=== PATIENT | female | born 1965 | race Caucasian/White ===

== ENCOUNTER 2017-03-17 09:09 | Outpatient (CLI) | payer BC ==
--- NOTE | 2017-03-17 10:06 | PRG ---
DATE OF SERVICE: 03/17/2017 SUBJECTIVE: This is a 51-year-old female who returns today for followup right great toe ulceration. He has been doing Promogran, 4 x 4 and tape dressing changes. Denies any nausea, vomiting, fevers , chills, or any other concerns at this time. PHYSICAL EXAMINATION: Ulceration, right great toe smaller in size measuring 0.5 cm x 0.4 cm x 0.1 c m of depth, 100% granular base post-debridement. Does not probe to bone or deeper soft tissues. No periwound erythema, edema, or warmth or other signs of infection. ASSESSMENT: 1. Non-pressure chronic ulceration of the right great toe. 2. Diabetes with peripheral neuropathy. PLAN: Full thickness debridement of the wound down to the subcutaneous tissue layer removing nonvia ble tissues including biofilm from the wound base. Patient tolerated the procedure well. The patie nt will continue with Promogran dressing changes daily and follow up with me in 1 week.
[2017-03-17] MEDS ORDERED: Sodium Chloride 0.9% 15 ML NEB ONE (11:11)
== END 2017-03-17 09:10 | disposition home or self-care (01) ==
LOC: WCC 09:09
PROVIDERS: ATTEND Podiatrist Foot & Ankle Surgery
DX: E11.621 Type 2 diabetes mellitus with foot ulcer (principal); L97.519 Non-pressure chronic ulcer of other part of right foot with unspecified severity
CPT/HCPCS: 11042; A4218

== ENCOUNTER 2017-03-31 09:22 | Outpatient (CLI) | payer BC ==
--- NOTE | 2017-03-31 09:58 | PRG ---
DATE OF SERVICE: 03/31/2017 SUBJECTIVE: This is a 51-year-old female who returns today for right great toe ulceration, doing we ll with Promogran dressing changes. She denies nausea, vomiting, fevers or chills. PHYSICAL EXAMINATION: Ulceration right great toe dorsomedial, IVJ, measures 0.3 cm x 0.2 cm x 0.2 c m, which is a decrease in size, there is 100% granular wound base. No periwound erythema, edema or warmth. No other signs of bacterial infection. ASSESSMENT: 1. Non-pressure chronic ulceration of the right great toe. 2. Diabetes with peripheral neuropathy. PLAN: Full thickness debridement down to the subcutaneous tissue layer utilizing dermal curet, chanel ving all biofilm and nonviable tissue within the wound base, approximately 2 mL of blood loss. The patient tolerated the procedure well. We will continue dressing with daily Promogran, gauze and tap e dressing changes. She will follow up with me in 2 weeks.
[2017-03-31] MEDS ORDERED: Sodium Chloride 0.9% 15 ML NEB ONE (17:30)
== END 2017-03-31 09:23 | disposition home or self-care (01) ==
LOC: WCC 09:22
PROVIDERS: ATTEND Podiatrist Foot & Ankle Surgery
DX: E11.621 Type 2 diabetes mellitus with foot ulcer (principal); L97.519 Non-pressure chronic ulcer of other part of right foot with unspecified severity; E11.51 Type 2 diabetes mellitus with diabetic peripheral angiopathy without gangrene
CPT/HCPCS: 11042; A4218

== ENCOUNTER 2017-04-14 09:21 | Outpatient (CLI) | payer BC ==
--- NOTE | 2017-04-14 11:09 | PRG ---
DATE OF SERVICE: 04/14/2017 SUBJECTIVE: This is a 51-year-old female who returns today for followup of right great toe dorsal u lceration. She has been doing well with daily dressing changes. She states she has had no issues. Denies nausea, vomiting, fevers or chills. They did bring some [facility] paperwork for me to fill out to day. PHYSICAL EXAMINATION: Ulceration to the dorsal aspect of the right great toe, very small in size. Post-debridement measurement measures 0.3 cm x 0.1 cm x 0.1 cm with 100% granular wound base, does n ot probe to deeper tendon or bone and does not have any periwound erythema or edema or warmth. ASSESSMENT: Non-pressure chronic ulceration to the right great toe. PLAN: 1. Full thickness debridement of the subcutaneous tissue layer of the ulceration of the right great toe, removing all nonviable tissue, biofilm and down to a bleeding granular wound base utilizing de rmal curet. 2. [facility] paperwork was filled out to the patient's satisfaction. 3. The patient will follow up with me in 1 week. We will continue with the daily Promogran dressin g changes.
== END 2017-04-14 09:22 | disposition home or self-care (01) ==
LOC: WCC 09:21
PROVIDERS: ATTEND Podiatrist Foot & Ankle Surgery
DX: L97.519 Non-pressure chronic ulcer of other part of right foot with unspecified severity (principal)
CPT/HCPCS: 11042

== ENCOUNTER 2017-05-05 09:15 | Outpatient (CLI) | payer BC ==
--- NOTE | 2017-05-05 10:24 | PRG ---
DATE OF SERVICE: 05/05/2017 SUBJECTIVE: Ms. Carlson returns today for followup right great toe ulceration. Has been doing Prom ogran, MediPort plus pad dressings daily. Has seen minimal change in the wound. Denies any nausea, vomiting, fevers, or chills. PHYSICAL EXAMINATION: Ulceration to the right great toe, measuring 0.3 cm x 0.2 cm x 0.2 cm, 100% gr anular wound base. No periwound erythema, edema, or warmth. No drainage. Wound does not probe to b one. ASSESSMENT: Non-pressure chronic ulceration of the right great toe, stalled in progression. PLAN: 1. Full thickness debridement of subcutaneous tissue layers down to a bleeding granular wound base, removing all biofilm and nonviable tissue from the wound base. 2. I am going to switch her dressings to an Aquacel Ag pad and secondary gauze dressing for the next 2 weeks to see if we can get any change in the wound size as it is stalled with the Promogran. 3. She will follow up with us in 2 weeks.
== END 2017-05-05 09:16 | disposition home or self-care (01) ==
LOC: WCC 09:15
PROVIDERS: ATTEND Podiatrist Foot & Ankle Surgery
DX: L97.519 Non-pressure chronic ulcer of other part of right foot with unspecified severity (principal)

== ENCOUNTER 2017-05-19 09:46 | Outpatient (CLI) | payer BC ==
[2017-05-19] MEDS ORDERED: Sodium Chloride 0.9% 15 ML NEB ONE (17:28)
--- NOTE | 2017-05-20 10:09 | PRG ---
DATE OF SERVICE: 05/20/2017 SUBJECTIVE: A 51-year-old female who returns today for right great toe dorsal ulceration, has been d oing well since last week. We switched to Aquacel AG and MediPort plus pad dressings. No complaints at this time. Denies nausea, vomiting, fevers or chills. 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 There is 50% granulation tissue, 50% epithelium within the wound. Does not pr obe to bone or tendon. No drainage, no periwound erythema, edema or warmth. No malodor. ASSESSMENT: 1. Non-pressure chronic ulceration to the right great toe. 2. Diabetes with peripheral neuropathy. PLAN: 1. Full thickness debridement of the subcutaneous tissue layer down to a bleeding granular wound bas e, removing biofilm and nonviable tissue from the wound. The patient tolerated the procedure well. 2. Continue with Aquacel AG, dressing changes on a daily basis and she will follow up with me in 1 w [facility].
== END 2017-05-19 09:47 | disposition home or self-care (01) ==
LOC: WCC 09:46
PROVIDERS: ATTEND Podiatrist Foot & Ankle Surgery
DX: E11.621 Type 2 diabetes mellitus with foot ulcer (principal); L97.519 Non-pressure chronic ulcer of other part of right foot with unspecified severity; E11.42 Type 2 diabetes mellitus with diabetic polyneuropathy
CPT/HCPCS: 11042; A4218

== ENCOUNTER 2017-06-02 08:51 | Outpatient (CLI) | payer BC ==
--- NOTE | 2017-06-02 09:40 | PRG ---
DATE OF SERVICE: 06/02/2017 SUBJECTIVE: This is a 51-year-old female who returns today for followup right great toe ulceration. She has been doing well since last visit. She continues with Aquacel AG dressing changes. She lashawn es nausea, vomiting, fever or chills. PHYSICAL EXAMINATION: Ulceration to the right great toe dorsal IPJ has healed. There is no open wou nd at this time. No erythema, edema, or warmth of the toe. She does have a hallux malleus deformity secondary to a bone resection because of infection. ASSESSMENT: 1. Non-pressure chronic ulceration to the right great toe, resolved. 2. Diabetes with peripheral neuropathy. 3. Hallux malleus. PLAN: Discussed with patient skin care including moisturizing daily, no dressing is necessary at thi s time. She needs to be diligent on looking at the toe and making sure that her shoes are not rubbin g any areas. We briefly discussed amputation should this continue to be a problem because of the sev ere deformity of the toe. She does not need follow up with me at this time unless she has any furthe r concerns.
== END 2017-06-02 08:52 | disposition home or self-care (01) ==
LOC: WCC 08:51
PROVIDERS: ATTEND Podiatrist Foot & Ankle Surgery
DX: M20.41 Other hammer toe(s) (acquired), right foot (principal); E11.42 Type 2 diabetes mellitus with diabetic polyneuropathy

== ENCOUNTER 2017-10-22 16:05 | Emergency (ER) | payer BC ==
[2017-10-22] MEDS ORDERED: cefTRIAXone\\ROCEPHIN 500 MG VIAL ONE (16:58)
[2017-10-22] MEDS ORDERED: Lidocaine 1% PF 5 ML VIAL ONE (16:58)
== END 2017-10-22 17:40 | disposition home or self-care (01) ==
LOC: ERS 16:05
DX: L03.116 Cellulitis of left lower limb (principal); E11.621 Type 2 diabetes mellitus with foot ulcer; L97.529 Non-pressure chronic ulcer of other part of left foot with unspecified severity; I10 Essential (primary) hypertension; F17.210 Nicotine dependence, cigarettes, uncomplicated; Z79.4 Long term (current) use of insulin; Z79.899 Other long term (current) drug therapy
CPT/HCPCS: 96372; J0696; J2001

== ENCOUNTER → 2018-01-26 | Day surgery (SDC) | payer BC ==
[~2018-01-26] MED LIST: Heparin 1,000 UNITS/ML VIAL ONE
[2018-01-26 08:39] LABS: #Basophils 0.1 thou/uL (0.0-0.2); #Eosinphils 0.2 thou/uL (0.0-0.7); #Lymphocytes 1.3 thou/uL (1.20-3.40); #Monocytes 0.5 thou/uL (0.11-0.59); #Neutrophils 5.9 thou/uL (1.40-6.50); %Basophils 0.9 % (0.0-1.0); %Lymphocytes 16.7 % (21.0-51.0); %Monocytes 5.7 % (0.0-10.0); %Neutrophils 74.6 % (42.0-75.0); Hemoglobin 12.5 g/dL (12.0-16.0); Mean Corpuscular HGB CONC 32.1 g/dL (32.0-36.0); Mean Corpuscular Hemoglobin 28.7 pg (27.0-31.0); Mean Corpuscular Volume 89.2 fL (78.0-98.0); Mean Platelet Volume 7.9 fL (7.4-10.4); Platelet Count 417 thou/uL (130-400); RBC Distribution Width 12.5 % (11.5-14.5); Red Blood Cell (RBC) Count 4.35 mill/uL (4.20-5.40)
[2018-01-26 09:14] LABS: ALT (SGPT) Less than 7 U/L (8-55); AST (SGOT) 7 U/L (5-34); Albumin 2.7 g/dL (3.5-5.0); Alkaline Phosphatase 92 U/L (40-150); Anion Gap 10 mmol/L (10-20); BUN (Urea Nitrogen) 26 mg/dL (9.8-20.1); Bilirubin, Total 0.3 mg/dL (0.2-1.2); CK (CPK) 41 U/L (29-168); CRP (Inflammatory) 4.34 mg/dL (= or < 0.5); Calc. Creatinine Clearance 0 mL/min (70-130); Calcium 9.3 mg/dL (7.8-10.44); Carbon Dioxide 30 mmol/L (22-29); Chloride 96 mmol/L (98-107); Estimated GFR-MDRD 40; Globulin 4.6 g/dL (2.4-3.5); Glucose 515 mg/dL (70-105); Potassium 4.4 mmol/L (3.5-5.1); Protein, Total 7.3 g/dL (6.0-8.3); Sodium 132 mmol/L (136-145)
--- NOTE | 2018-01-26 11:25 | SPC ---
ULTRASOUND WITH FFLUOROSCOPIC GUIDED LEFT UPPER EXTREMITY PICC LINE PLACEMENT: INDICATIONS: Left foot osteomyelitis. TECHNIQUE: Informed consent was obtained. A pre-procedure ultrasound was performed to document patency of the l eft basilic vein. The left upper extremity was prepped and draped in the usual sterile fashion. Buf fered 1% Lidocaine was administered to the overlying subcutaneous tissues. Under ultrasound guidance , the micropuncture access kit was utilized to gain access to the left basilic vein. A guide wire wa s advanced to the level of the IVC. A 5 Slovak catheter sheath was placed. A single lumen PICC line , trimmed to 49 cm, was guided over the wire and through the sheath. The sheath and wire were remove d. The tip of the catheter was seen at the cavoatrial junction. The catheter flushed and aspirated appropriately. Total fluoroscopic time was 0.3 minutes. Total exposure was 1918 mGy per cm2. IMPRESSION: Successful left upper extremity peripherally inserted central catheter line. POS: [facility]
== END ==
LOC: SPEC 07:44
PROVIDERS: ATTEND Internal Medicine Infectious Disease
PROC: B519ZZA Fluoroscopy of Inferior Vena Cava, Guidance (ICD-10-PCS; principal; 2018-01-26)
PROC: 06H033Z Insertion of Infusion Device into Inferior Vena Cava, Percutaneous Approach (ICD-10-PCS; principal; 2018-01-26)
DX: E11.69 Type 2 diabetes mellitus with other specified complication (principal); M86.072 Acute hematogenous osteomyelitis, left ankle and foot; Z79.4 Long term (current) use of insulin; Z88.8 Allergy status to other drugs, medicaments and biological substances
CPT/HCPCS: 36415; 36569; 80053; 82550; 85025; 85652; 86140; C1751; J1644

== ENCOUNTER 2018-09-07 00:53 | Outpatient (CLI) | payer BC ==
[2018-09-07 12:42] LABS: Anion Gap 11 mmol/L (10-20); BUN (Urea Nitrogen) 34 mg/dL (9.8-20.1); Calc. Creatinine Clearance 0 mL/min (70-130); Calcium 9.1 mg/dL (7.8-10.44); Carbon Dioxide 24 mmol/L (22-29); Chloride 107 mmol/L (98-107); Estimated GFR-MDRD 41; Glucose 329 mg/dL (70-105); Sodium 137 mmol/L (136-145)
--- NOTE | 2018-09-10 17:37 | EKG ---
Test Reason : Blood Pressure : / mmHG Vent. Rate : 064 BPM Atrial Rate : 064 BPM P-R Int : 126 ms QRS Dur : 088 ms QT Int : 430 ms P-R-T Axes : 072 047 073 degrees QTc Int : 443 ms Normal sinus rhythm Normal ECG When compared with ECG of 18-JUN-2013 10:44, Vent. rate has decreased BY 35 BPM Nonspecific T wave abnormality no longer evident in Inferior leads QT has shortened Confirmed by DR. Dion NGUYEN ([id number]) on 09/10/2018 5:36:57 PM Referred By: WESLEY Confirmed By:DR. Dion NGUYEN
== END 2018-09-07 00:54 | disposition home or self-care (01) ==
LOC: LABBT 00:53
PROVIDERS: ATTEND Podiatrist Foot & Ankle Surgery
DX: Z01.818 Encounter for other preprocedural examination (principal); M86.9 Osteomyelitis, unspecified
CPT/HCPCS: 80048; 93005; 93010

== ENCOUNTER 2018-09-14 08:55 | Day surgery (SDC) | payer BC ==
[2018-09-07 10:55] VITALS: BMI 37.5
[2018-09-14] MEDS ORDERED: Glycopyrrolate 0.2 MG/ML 5 ML SYRINGE ONE (10:36)
[2018-09-14] MEDS ORDERED: PROPOFOL 200 MG/20 ML VIAL ONE (10:36)
[2018-09-14] MEDS ORDERED: Lidocaine 1% PF 5 ML VIAL ONE (10:36)
[2018-09-14] MEDS ORDERED: ePHEDrine 50 MG/ML VIAL ONE (10:36)
[2018-09-14] MEDS ORDERED: Ondansetron PF 4 MG/2 ML Vial ONE (10:36)
[2018-09-14] MEDS ORDERED: Bupivacaine PF 0.5% 30 ML VIAL ONE (12:28)
[2018-09-14] MEDS ORDERED: Fentanyl 100 MCG/2 ML VIAL ONE (12:58)
--- NOTE | 2018-09-14 14:23 | RAD ---
RIGHT FOOT 2 VIEWS: HISTORY: Postoperative. FINDINGS: AP and lateral views of the left foot demonstrate amputation changes of the 5th toe including the ent harry 5th metatarsal. Old deformity of the 4th toe as well as the tarsal metatarsal joint regions of t he 2nd and 3rd toes. Arthrosis and degenerative changes. IMPRESSION: Amputation changes of the 5th toe as well as some deformity of the 2nd, 3rd, and 4th metatarsals and tarsometatarsal regions. Minimal soft tissue swelling. Prominent vascular calcifications. No old s tudies. POS: [facility]
--- NOTE | 2018-09-14 20:50 | OP ---
DATE OF PROCEDURE: 09/14/2018 PREOPERATIVE DIAGNOSES: Ulceration to the left lateral foot and chronic osteomyelitis of the left 5th metatarsal. POSTOPERATIVE DIAGNOSES: Ulceration to the left lateral foot and chronic osteomyelitis of the left 5th metatarsal. PROCEDURE PERFORMED: Excision of 5th metatarsal base with ilzl-gu-lfod anastomosis of the peroneus brevis to the peroneus longus tendon. ANESTHESIA: General endotracheal with local infiltrative block. HEMOSTASIS: Pneumatic tourniquet about the left ankle at mmHg. ESTIMATED BLOOD LOSS: None. MATERIALS: 1. 2-0 FiberWire. 2. 4-0 Vicryl. 3. 3-0 Prolene. INJECTABLES: 10 mL 0.5% Marcaine plain preoperatively. COMPLICATIONS: None. DESCRIPTION OF PROCEDURE: The patient was brought to the operative suite, placed supine on the operative table. A time-out was performed, identifying correct patient, procedure, and operative site. A well-padded tourniquet was placed about the left ankle. The foot was prepped and draped in a standard aseptic manner. Blood was exsanguinated from the foot and tourniquet was raised to mmHg. A 6 cm linear longitudinal incision was made over the base of the 5th metatarsal in the course of the peroneal tendons. Sharp and blunt dissection through the subcutaneous tissues avoiding vital structures, ligating bleeders as necessary. It was noted there was a large amount of scar tissue at this time. Peroneal tendons were thin and atrophic, identified the peroneus longus and peroneus brevis tendons and agce-cl-fcel anastomosis was performed at the peroneal groove by the cuboid with 2-0 FiberWire. Once that was performed, the 5th metatarsal was excised. Portion of this was taken and sent for culture. The remaining portion of 5th metatarsal was sent for pathology for evaluation. The wound was irrigated with sterile saline. Subcutaneous tissues were repaired with 4-0 Vicryl and skin was repaired with 3-0 Prolene. Bandage applied including Xeroform gauze, roll gauze and Rey bandage. Tourniquet was released, noted immediate hyperemia to the distal aspect of all remaining toes. The patient tolerated the procedure and anesthesia well, was transferred out of the operative suite. Vital signs stable. Neurovascular status intact to the left lower extremity. She will be kept for a short period of monitoring and discharged home with aftercare instructions and follow up with me in one week. Job ID: [id number]
== END 2018-09-14 15:40 | disposition home or self-care (01) ==
LOC: SDC 08:55
PROVIDERS: ATTEND Podiatrist Foot & Ankle Surgery
PROC: 0QTP0ZZ Resection of Left Metatarsal, Open Approach (ICD-10-PCS; principal; 2018-09-14)
DX: E11.69 Type 2 diabetes mellitus with other specified complication (principal); M86.672 Other chronic osteomyelitis, left ankle and foot; B95.4 Other streptococcus as the cause of diseases classified elsewhere; E11.621 Type 2 diabetes mellitus with foot ulcer; L97.529 Non-pressure chronic ulcer of other part of left foot with unspecified severity; I10 Essential (primary) hypertension; E66.9 Obesity, unspecified; Z68.37 Body mass index [BMI] 37.0-37.9, adult; Z87.891 Personal history of nicotine dependence; Z79.4 Long term (current) use of insulin; Z79.2 Long term (current) use of antibiotics; Z79.899 Other long term (current) drug therapy; Z88.8 Allergy status to other drugs, medicaments and biological substances; Z89.422 Acquired absence of other left toe(s)
CPT/HCPCS: 36416; 87070; 87077; 87205; 88304; 88311; J2001; J2405; J2704; J3010; J3490; S0020

== ENCOUNTER 2019-02-01 11:00 | Emergency (ER) | payer BC ==
[2019-02-01 11:53] LABS: #Basophils 0.1 thou/uL (0.0-0.2); #Eosinphils 0.3 thou/uL (0.0-0.7); #Lymphocytes 1.7 thou/uL (1.20-3.40); #Monocytes 0.4 thou/uL (0.11-0.59); #Neutrophils 4.4 thou/uL (1.40-6.50); %Basophils 1.3 % (0.0-1.0); %Eosinophils 4.6 % (0.0-10.0); %Neutrophils 63.1 % (42.0-75.0); Hemoglobin 12.4 g/dL (12.0-16.0); Mean Corpuscular HGB CONC 31.8 g/dL (32.0-36.0); Mean Corpuscular Volume 87.8 fL (78.0-98.0); Mean Platelet Volume 8.6 fL (7.4-10.4); Platelet Count 305 thou/uL (130-400); RBC Distribution Width 13.2 % (11.5-14.5); Red Blood Cell (RBC) Count 4.44 mill/uL (4.20-5.40)
[2019-02-01] MEDS ORDERED: Piperacillin/Tazobactam 4.5 GM VIAL ONE (12:05)
[2019-02-01 12:13] LABS: ALT (SGPT) 8 U/L (8-55); AST (SGOT) 22 U/L (5-34); Albumin 2.3 g/dL (3.5-5.0); Alkaline Phosphatase 104 U/L (40-150); Anion Gap 13 mmol/L (10-20); BUN (Urea Nitrogen) 40 mg/dL (9.8-20.1); Bilirubin, Total Less than 0.2 mg/dL (0.2-1.2); CK (CPK) 163 U/L (29-168); Calc. Creatinine Clearance 0 mL/min (70-130); Carbon Dioxide 18 mmol/L (22-29); Chloride 111 mmol/L (98-107); Estimated GFR-MDRD 35; Globulin 4.2 g/dL (2.4-3.5); Glucose 223 mg/dL (70-105); Potassium 5.6 mmol/L (3.5-5.1); Protein, Total 6.5 g/dL (6.0-8.3); Sodium 136 mmol/L (136-145)
--- NOTE | 2019-02-01 14:07 | RAD ---
LEFT FOOT: Three views. HISTORY: Left toe infection. No comparison left foot exams. There has been prior amputation of the fifth digit of the left foot. There are deformity of the fourt h metatarsal. Degenerative changes seen at the MTP joints. Soft tissue swelling is seen laterally. No soft tissue gas density seen. There is evidence of edema in the ankle and hindfoot region. Degenerat stephane changes in the intertarsal joints. No evidence of focal fracture. No focal lytic or destructive p rocess seen. IMPRESSION: Degenerative changes. Evidence of prior amputation of the fifth digit including the phalanges and fif th metatarsal. No evidence of focal osteomyelitis. Other findings as described. POS: [facility]
== END 2019-02-01 13:58 | disposition home or self-care (01) ==
LOC: ERS 11:00
DX: L08.9 Local infection of the skin and subcutaneous tissue, unspecified (principal); E11.9 Type 2 diabetes mellitus without complications; I10 Essential (primary) hypertension; Z79.899 Other long term (current) drug therapy; Z79.4 Long term (current) use of insulin
CPT/HCPCS: 80053; 82550; 83605; 85025; 96365; J2543

== ENCOUNTER 2019-03-17 22:18 | Inpatient (IN) | payer BC ==
[2019-03-17] MEDS ORDERED: traMADol HCl 50 MG TAB ONE (23:11)
[2019-03-17] MEDS ORDERED: Ibuprofen 200 MG TAB ONE (23:11)
--- NOTE | 2019-03-17 23:18 | RAD ---
XR Foot Lt 3 View STANDARD HISTORY: Diabetic ulcer on left great toe not getting better. COMPARISON: 02/01/2019 study. FINDINGS: The bones are demineralized. There is now gas within the soft tissues of the great toe to t he level the first metatarsal. Vascular calcifications are seen. Bony findings are stable without evidence for osteomyelitis. IMPRESSION: Gas seen within the soft tissues of the great toe and adjacent to the first metatarsal. N o underlying osteomyelitis.
[2019-03-17 23:21] LABS: Hemoglobin 10.5 g/dL (12.0-16.0); Mean Corpuscular HGB CONC 32.2 g/dL (32.0-36.0); Mean Platelet Volume 8.7 fL (7.4-10.4); Platelet Count 367 thou/uL (130-400); RBC Distribution Width 13.3 % (11.5-14.5); Red Blood Cell (RBC) Count 3.76 mill/uL (4.20-5.40)
[2019-03-17 23:34] LABS: Band 7 % (5-11); Lymphocytes 7 % (21-51); MDiff Complete? YES; Monocytes 5 % (0-10); Neutrophil 81 % (42-75)
[2019-03-17 23:37] LABS: ALT (SGPT) 17 U/L (8-55); AST (SGOT) 22 U/L (5-34); Albumin 2.1 g/dL (3.5-5.0); Alkaline Phosphatase 104 U/L (40-110); Anion Gap 16 mmol/L (10-20); BUN (Urea Nitrogen) 47 mg/dL (9.8-20.1); Bilirubin, Total Less than 0.2 mg/dL (0.2-1.2); CRP (Inflammatory) 19.08 mg/dL (= or < 0.5); Calc. Creatinine Clearance 0 mL/min (70-130); Calcium 8.6 mg/dL (7.8-10.44); Carbon Dioxide 17 mmol/L (22-29); Chloride 105 mmol/L (98-107); Estimated GFR-MDRD 14; Globulin 4.6 g/dL (2.4-3.5); Glucose 190 mg/dL (70-105); Potassium 4.9 mmol/L (3.5-5.1); Protein, Total 6.7 g/dL (6.0-8.3); Sodium 133 mmol/L (136-145)
[2019-03-17] MEDS ORDERED: Vancomycin HCl 1.5 GM in Sodium Chloride 0.9% 250 ML 300 ML IVPB SCH (23:45)
[2019-03-17] MEDS ORDERED: Piperacillin/Tazobactam 2.25 GM VIAL ONE (23:50)
[2019-03-17] MEDS ORDERED: Sodium Chloride 0.9% 100 ML ONE (23:50)
--- NOTE | 2019-03-18 00:15 | PDOC.HHP ---
Hospitalist HPI - History of Present Illness L great toe erythema, pain History of Present Illness: Patient is a 53 year old female with PMH DM, HTN presenting to ED for L great toe infected diabetic ulcer. Patient has history of DM with neuropathy, a blister formed about a week ago, patient has significant diabetic neuropathy and sees a rehabilitation caseworker in clinic (Dr. Crook), she was taking bactrim prescribed by rehabilitation caseworker last Monday, but foot drastically worsened today. She has had multiple amputations of toes due to DM foot infections in the past. Patient has chills but no documented fever here. She feels increased pressure sensation in toes but does not feel pain, her daughter noted a color change to the foot and was concerned. Patient has DM, poorly controlled, does not check sugar regularily but was 300 when she checked it at home during this episode. Normally takes insulin short and long acting. Patient uses marijuana and tobacco (trying to quit). In ED, Cr in 3-4 range. WBC and ESR high, patient to be admitted for dm infection. Hospitalist ROS - Review of Systems Constitutional: reports: chills. denies: fever Eyes: denies: pain, vision change ENT: denies: mouth pain, mouth swelling Respiratory: denies: cough, dry, shortness of breath Cardiovascular: denies: chest pain, palpitations, orthopnea Gastrointestinal: denies: nausea, vomiting, diarrhea Genitourinary: denies: dysuria, frequency Musculoskeletal: denies: neck pain, shoulder pain Skin: reports: rash (per HPI) Neurological: reports: other (bilateral pedal neuropathy). denies: weakness, numbness All other systems reviewed; all pertinent +/- noted in HPI/Subj - Medication Medications: atorvastatin MonMar 17, 2019 23:08 JOSEPHINE Cifuentes Jennifer TABLET : Strength - 10 mg : ORAL Patient Dose: 2 tab(s) Oral once a day (at bedtime). gabapentin MonMar 17, 2019 23:08 JOSEPHINE Cifuentes Jennifer CAPSULE : Strength - 300 mg : ORAL Patient Dose: 1 tab(s) Oral 3 times a day. lisinopril MonMar 17, 2019 23:08 JOSEPHINE Cifuentes Jennifer TABLET : Strength - 20 mg : ORAL Patient Dose: 1/2 tab(s) Oral once a day. Levemir MonMar 17, 2019 23:08 JOSEPHINE Cifuentes Jennifer VIAL (ML) : Strength - 100 unit/mL : SUBCUTANEOUS Patient Dose: 70 units Subcutaneous 2 times a day. sulfamethoxazole Sun Mar 17, 2019 23:09 JOSEPHINE Cifuentes Jennifer TABLET : Strength - 500 mg : ORAL Patient Dose: UNK. Hospitalist History - Past Medical History Other Medical History: Past medical history includes history of diabetes, Type II, , Past medical history includes history of diabetes, Type II, Past medical history includes history of hypertension. - Past Surgical History Other Surgical History: Left foot surgery - Family History Family History: reports: no pertinent history - Social History Other Social History: Patient denies alcohol use, Patient denies drug use, Patient has no smoking history. - Exam General Appearance: NAD, awake alert Eye: PERRL, anicteric sclera ENT: normocephalic atraumatic, no oropharyngeal lesions, moist mucosa Neck: supple, symmetric, no JVD, no thyromegaly, no lymphadenopathy, no carotid bruit Heart: RRR, no murmur, no gallops, no rubs, normal peripheral pulses Respiratory: CTAB, no wheezes, no rales, no ronchi, normal chest expansion, no tachypnea, normal percussion Gastrointestinal: soft, non-tender, non-distended, normal bowel sounds, no palpable masses, no hepatomegaly, no splenomegaly, no bruit Extremities: no clubbing, no edema Extremities - other findings: erythema and necrosis up entire L foot, edema and gangrene Skin - other findings: see above Neurological: cranial nerve grossly intact, normal sensation to touch, no weakness, no focal deficits, no new deficit Musculoskeletal: normal tone, normal strength, no muscle wasting Psychiatric: normal affect, normal behavior, A&O x 3 Hospitalist Results - Labs Result Diagrams: 03/17/19 23:02 03/17/19 23:02 Lab results: WBC 22.0 thou/uL (4.8-10.8) H 03/17/19 23:02 Hgb 10.5 g/dL (12.0-16.0) L 03/17/19 23:02 Hct 32.7 % (36.0-47.0) L 03/17/19 23:02 MCV 87.0 fL (78.0-98.0) 03/17/19 23:02 Plt Count 367 thou/uL (130-400) 03/17/19 23:02 Band Neuts % (Manual) 7 % (5-11) 03/17/19 23:02 ESR Westergren 130 mm/hr (Less than 30) 03/17/19 23:02 Sodium 133 mmol/L (136-145) L 03/17/19 23:02 Potassium 4.9 mmol/L (3.5-5.1) 03/17/19 23:02 Chloride 105 mmol/L (98-107) 03/17/19 23:02 Carbon Dioxide 17 mmol/L (22-29) L 03/17/19 23:02 BUN 47 mg/dL (9.8-20.1) H 03/17/19 23:02 Creatinine 3.32 mg/dL (0.6-1.1) H 03/17/19 23:02 Glucose 190 mg/dL (70-105) H 03/17/19 23:02 Lactic Acid 1.4 mmol/L (0.5-2.2) 03/17/19 23:03 Calcium 8.6 mg/dL (7.8-10.44) 03/17/19 23:02 Total Bilirubin Less than 0.2 mg/dL (0.2-1.2) L 03/17/19 23:02 AST 22 U/L (5-34) 03/17/19 23:02 ALT 17 U/L (8-55) 03/17/19 23:02 Alkaline Phosphatase 104 U/L (40-110) 03/17/19 23:02 C-Reactive Protein 19.08 mg/dL (= or < 0.5) H 03/17/19 23:02 Serum Total Protein 6.7 g/dL (6.0-8.3) 03/17/19 23:02 Albumin 2.1 g/dL (3.5-5.0) L 03/17/19 23:02 vitals reviewed, see chart for details. afebrile, MAP > 65 Hospitalist H&P A/P - Problem (1) Diabetic infection of left foot Code(s): E11.628 - TYPE 2 DIABETES MELLITUS WITH OTHER SKIN COMPLICATIONS; L08.9 - LOCAL INFECTION OF THE SKIN AND SUBCUTANEOUS TISSUE, UNSP Status: Acute Assessment and Plan: appears necrotic, concerned will need amputation this admission (BKA likely) - admit to floor - blood cultures sent - vancomycin and unasyn - clinically acute osteomyelitis, no MRI needed - consult general surgery and Dr Thurston of podiatry for surgical evaluation - resume home meds once med rec complete (2) Hyponatremia Code(s): E87.1 - HYPO-OSMOLALITY AND HYPONATREMIA Status: Acute Assessment and Plan: hydrate with IVF, nephrology consulted (3) Anemia Code(s): D64.9 - ANEMIA, UNSPECIFIED Status: Acute Assessment and Plan: noted, trend CBC transfuse for less than 7 hgb (4) Acute renal failure Status: Acute Assessment and Plan: consult nephrology, IVF (5) Leukocytosis Code(s): D72.829 - ELEVATED WHITE BLOOD CELL COUNT, UNSPECIFIED Status: Acute Assessment and Plan: likely secondary to acute osteomyelitis (6) DM (diabetes mellitus), type 2, uncontrolled Code(s): E11.65 - TYPE 2 DIABETES MELLITUS WITH HYPERGLYCEMIA Status: Chronic Assessment and Plan: continue home levemir at half dose while NPO, SSI (7) Gout Code(s): M10.9 - GOUT, UNSPECIFIED Status: Chronic Assessment and Plan: not in active flare (8) Acute osteomyelitis Code(s): M86.10 - OTHER ACUTE OSTEOMYELITIS, UNSPECIFIED SITE Status: Acute - Plan Plan: see above plan for DM infected ulcer, clinically osteomyelitis
[2019-03-18] MEDS ORDERED: Ondansetron PF 4 MG/2 ML Vial IVP PRN (01:12)
[2019-03-18] MEDS ORDERED: Bisacodyl 10 MG SUPP PR PRN (01:12)
[2019-03-18] MEDS ORDERED: Dextrose 5% in Water 1,000 ML IV PRN (01:12)
[2019-03-18] MEDS ORDERED: Senokot S 8.6-50 MG TAB PO PRN (01:12)
[2019-03-18] MEDS ORDERED: Dextrose 50% Abboject 50 ML SYRINGE SLOW IVP PRN (01:12)
[2019-03-18] MEDS ORDERED: Acetaminophen 325 MG TAB PO PRN (01:12)
[2019-03-18] MEDS ORDERED: Sodium Chloride 0.9% 1,000 ML IV SCH (01:30)
[2019-03-18 03:39] VITALS: BMI 40.3
[2019-03-18] MEDS: Ampicillin/Sulbactam 3 GM in Sodium Chloride 0.9% 100 ML IVPB SCH ×2 (05:29→17:01)
[2019-03-18 06:04] LABS: Hemoglobin 8.8 g/dL (12.0-16.0); Mean Corpuscular HGB CONC 32.1 g/dL (32.0-36.0); Mean Corpuscular Hemoglobin 28.4 pg (27.0-31.0); Mean Corpuscular Volume 88.5 fL (78.0-98.0); Mean Platelet Volume 8.7 fL (7.4-10.4); Platelet Count 315 thou/uL (130-400); RBC Distribution Width 13.2 % (11.5-14.5); Red Blood Cell (RBC) Count 3.09 mill/uL (4.20-5.40); White Blood Cell (WBC) Count 21.2 thou/uL (4.8-10.8)
[2019-03-18 06:22] LABS: Band 8 % (5-11); Eosinophils 1 % (0-10); Lymphocytes 7 % (21-51); MDiff Complete? YES; Monocytes 1 % (0-10); Neutrophil 83 % (42-75)
[2019-03-18 06:42] LABS: Anion Gap 11 mmol/L (10-20); BUN (Urea Nitrogen) 44 mg/dL (9.8-20.1); Calc. Creatinine Clearance 39 mL/min (70-130); Calcium 8.1 mg/dL (7.8-10.44); Carbon Dioxide 18 mmol/L (22-29); Chloride 109 mmol/L (98-107); Estimated GFR-MDRD 17; Glucose 204 mg/dL (70-105); Sodium 133 mmol/L (136-145)
[2019-03-18] MEDS: Enoxaparin Sodium 30 MG/0.3 ML SYRINGE SC SCH (07:48)
[2019-03-18] MEDS: Famotidine 20 MG TAB PO SCH ×2 (07:49→09:35)
[2019-03-18] MEDS: Insulin Glargine 30 UNITS in Pre-Filled Syringe 1 EACH SC SCH ×3 (07:49→19:47)
[2019-03-18] MEDS ORDERED: Vancomycin HCl 1 GM in Premix Bag 1 BAG IVPB SCH (09:00)
[2019-03-18] MEDS ORDERED: Levothyroxine Sodium 50 MCG TAB PO SCH ×2 (09:00)
[2019-03-18 09:28] LABS: Iron 16 ug/dL (50-170); Iron Binding Capacity, Total 96 mcg/dL (265-497)
[2019-03-18] MEDS: Amlodipine 5 MG TAB PO SCH (09:35)
[2019-03-18] MEDS: HYDROcodone/Acetaminophen 5/325 mg Tablet PO PRN ×2 (12:18→22:56)
[2019-03-18] MEDS: HumaLOG 300 UNITS/3 ML VIAL SC PRN (12:19)
--- NOTE | 2019-03-18 13:07 | PDOC.HOSPP ---
- Subjective Encounter Date: 03/18/19 Encounter Time: 12:00 Subjective: no sob or toe pain - Objective Vital Signs & Weight: Vital Signs (12 hours) Temp Pulse Resp BP Pulse Ox 03/18/19 12:08 98.0 F 77 20 159/65 H 98 03/18/19 09:35 73 03/18/19 08:01 97.9 F 73 18 182/77 H 96 03/18/19 08:00 96 03/18/19 03:00 98 F 80 16 161/71 H 100 Weight Admit Weight 242 lb 8.136 oz Weight 242 lb 8.136 oz I&O: 03/17/19 03/18/19 03/19/19 06:59 06:59 06:59 Intake Total 600 Balance 600 Result Diagrams: 03/18/19 05:47 03/18/19 05:47 Additional Labs: Accuchecks 03/18/19 03/18/19 11:39 05:36 POC Glucose 206 H 212 H Hospitalist ROS - Medication Medications: Active Medications Generic Name Dose Route Start Last Admin Trade Name Freq PRN Reason Stop Dose Admin Hydrocodone Bitart/Acetaminophen 1 tab 03/18/19 01:12 03/18/19 12:18 [place] 5/325 PO 1 tab Q4H PRN Administration Moderate Pain (4-6) Amlodipine Besylate 5 mg 03/18/19 09:00 03/18/19 09:35 Norvasc PO 5 mg DAILY HARRY Administration Enoxaparin Sodium 30 mg 03/18/19 09:00 03/18/19 07:48 Lovenox SC Not Given 899 HARRY Famotidine 20 mg 03/18/19 09:00 03/18/19 09:35 Pepcid PO 20 mg DAILY HARRY Administration Ampicillin Sodium/Sulbactam 100 mls @ 200 mls/hr 03/18/19 05:00 03/18/19 05: 29 Sodium 3 gm/ Sodium Chloride IVPB 100 mls 0500,1700 HARRY Administration Insulin Glargine 30 units/ 0.3 mls @ 0 mls/hr 03/18/19 09:00 03/18/19 10:25 Miscellaneous Medication SC 0.3 mls BID HARRY Administration Insulin Human Lispro 0 units 03/18/19 01:12 03/18/19 12:19 Humalog SC 4 unit .MODERATE SLIDING SC PRN Administration Moderate Correctional Scale - Exam General Appearance: awake alert Eye: PERRL, anicteric sclera ENT: no oropharyngeal lesions, moist mucosa Neck: supple, no JVD Heart: RRR, no murmur Respiratory: no wheezes, no rales Gastrointestinal: soft, non-tender, non-distended, normal bowel sounds Extremities: no edema Extremities - other findings: right gr toe has wet gangrene, foul smelling discharge Neurological: cranial nerve grossly intact, no focal deficits Psychiatric: normal affect, A&O x 3 Hosp A/P (1) Sepsis Code(s): A41.9 - SEPSIS, UNSPECIFIED ORGANISM Status: Acute Qualifiers: Sepsis type: sepsis due to unspecified organism Sepsis acute organ dysfunction status: with acute organ dysfunction Severe sepsis shock status: without septic shock (2) Osteomyelitis Code(s): M86.9 - OSTEOMYELITIS, UNSPECIFIED Status: Acute Qualifiers: Osteomyelitis location: foot Laterality: right (3) HTN (hypertension) Code(s): I10 - ESSENTIAL (PRIMARY) HYPERTENSION Status: Chronic Qualifiers: Hypertension type: essential hypertension Qualified Code(s): I10 - Essential (primary) hypertension (4) FANG (acute kidney injury) Code(s): N17.9 - ACUTE KIDNEY FAILURE, UNSPECIFIED Status: Acute (5) Metabolic acidosis Code(s): E87.2 - ACIDOSIS Status: Acute (6) Hypothyroidism Code(s): E03.9 - HYPOTHYROIDISM, UNSPECIFIED Status: Chronic Qualifiers: Hypothyroidism type: unspecified Qualified Code(s): E03.9 - Hypothyroidism , unspecified (7) Hypoalbuminemia due to protein-calorie malnutrition Code(s): E46 - UNSPECIFIED PROTEIN-CALORIE MALNUTRITION Status: Chronic (8) Anemia Code(s): D64.9 - ANEMIA, UNSPECIFIED Status: Chronic (9) DM (diabetes mellitus), type 2, uncontrolled Code(s): E11.65 - TYPE 2 DIABETES MELLITUS WITH HYPERGLYCEMIA Status: Chronic (10) Gout Code(s): M10.9 - GOUT, UNSPECIFIED Status: Chronic Qualifiers: Gout site: unspecified site (11) Morbid obesity Code(s): E66.01 - MORBID (SEVERE) OBESITY DUE TO EXCESS CALORIES Status: Chronic (12) PVD (peripheral vascular disease) Code(s): I73.9 - PERIPHERAL VASCULAR DISEASE, UNSPECIFIED Status: Chronic - Plan is on unasyn and vanc iv fluids levemir 30 u bid to see her, will likely need ray amp wound care after surgery hemostable nephrology consultation
[2019-03-18] MEDS: Sodium Chloride 0.45% 1,000 ML IV SCH ×2 (15:49→23:00)
[2019-03-18] MEDS: Atorvastatin Calcium 20 MG TAB PO SCH (19:46)
[2019-03-18] MEDS: Vancomycin HCl 750 MG in Sodium Chloride 0.9% 250 ML 250 ML IVPB SCH (23:00)
--- NOTE | 2019-03-19 02:06 | CON ---
DATE OF CONSULTATION: CONSULTING PHYSICIAN: Bettie Sood MD REQUESTING PHYSICIAN: Eben Laird MD REASON FOR CONSULTATION: Acute on chronic kidney disease. IMPRESSION: 1. Acute on chronic kidney disease. This is likely multifactorial including, but not limited to worsening diabetic nephropathy compounded by cytokine mediated injury in the context of infection. 2. Proteinuria, query degree likely to be of nephrotic range in the context of significant diabetic nephropathy. 3. Diabetes mellitus, already complicated with diabetic foot. 4. Metabolic acidosis. 5. Hypertension. PLAN: 1. Discontinue current IV fluid, which will be worsening the high blood pressure of this patient as well as the metabolic acidosis. 2. Quantify the degree of proteinuria with spot urine protein and creatinine. 3. Renally dose all medications for low GFR and avoid potentially nephrotoxic agents. 4. Check the vitamin D level and PTH. 5. Further management will be dependent on the clinical course. There is no emergent indication for renal replacement therapy. However, if the patient does have significant proteinuria in the context of diabetic nephropathy, this modality of treatment will not be too far away. HISTORY OF PRESENT ILLNESS: History is that of a 53-year-old female patient with diabetes, who presented here with diabetic foot white pungent, noted with elevated creatinine and significant proteinuria. As a result of these findings, decision was taken to involve Renal in the management of this case. PAST MEDICAL HISTORY: Significant for diabetes mellitus and hypertension. SOCIAL HISTORY: Significant for tobacco use. FAMILY HISTORY: Significant for kidney disease in the brother who had kidney failure. REVIEW OF SYSTEMS: As documented in the body of the history. All other systems were reviewed and found not to be significantly related to present illness. LABORATORY INVESTIGATIONS: Significant for creatinine of 3.32 on presentation with a bicarb of 17, anemic with a hemoglobin of 8.8. PHYSICAL EXAMINATION: GENERAL: The patient was found not to be in any distress. VITAL SIGNS: Noted with the following vital signs; afebrile, temperature 98, pulse 77, respiratory rate of 20, O2 saturations of 98% with blood pressure 182/77. HEENT: Unremarkable. Moist oral mucosa. Neck was supple. No conjunctival injection or icterus. CARDIOVASCULAR: First and second heart sounds were heard. RESPIRATORY SYSTEM: Clear to auscultation. DIGESTIVE: Revealed a benign abdomen. EXTREMITIES: Showed some peripheral edema with the left gangrenous foot. NEURO: Alert and oriented. No lateralizing signs. In summary, a 53-year-old female patient with significant diabetic nephropathy as well as worsening renal failure. Thank you for this consultation. We will follow with you. Job ID: [id number]
[2019-03-19] MEDS: HYDROcodone/Acetaminophen 5/325 mg Tablet PO PRN ×3 (03:04→12:01)
[2019-03-19 04:24] LABS: Albumin 1.9 g/dL (3.5-5.0); Anion Gap 10 mmol/L (10-20); BUN (Urea Nitrogen) 40 mg/dL (9.8-20.1); BUN/Creatinine Ratio 15.69; Calc. Creatinine Clearance 44 mL/min (70-130); Carbon Dioxide 21 mmol/L (22-29); Chloride 110 mmol/L (98-107); Estimated GFR-MDRD 20; Glucose 73 mg/dL (70-105); Phosphorus 3.8 mg/dL (2.3-4.7); Potassium 4.6 mmol/L (3.5-5.1); Sodium 136 mmol/L (136-145)
[2019-03-19] MEDS: Ampicillin/Sulbactam 3 GM in Sodium Chloride 0.9% 100 ML IVPB SCH ×2 (05:06→18:12)
[2019-03-19] MEDS: Levothyroxine Sodium 50 MCG TAB PO SCH (05:06)
[2019-03-19 07:07] LABS: Hemoglobin 9.3 g/dL (12.0-16.0); Mean Corpuscular Hemoglobin 28.3 pg (27.0-31.0); Mean Corpuscular Volume 88.6 fL (78.0-98.0); Mean Platelet Volume 8.2 fL (7.4-10.4); Platelet Count 360 thou/uL (130-400); RBC Distribution Width 13.4 % (11.5-14.5); Red Blood Cell (RBC) Count 3.28 mill/uL (4.20-5.40); White Blood Cell (WBC) Count 17.8 thou/uL (4.8-10.8)
[2019-03-19] MEDS: Enoxaparin Sodium 30 MG/0.3 ML SYRINGE SC SCH (07:38)
[2019-03-19] MEDS: Amlodipine 5 MG TAB PO SCH (08:25)
[2019-03-19] MEDS: Sodium Chloride 0.45% 1,000 ML IV SCH ×2 (08:25→19:19)
[2019-03-19] MEDS: Famotidine 20 MG TAB PO SCH (08:25)
[2019-03-19 08:31] LABS: Band 21 % (5-11); Eosinophils 1 % (0-10); Lymphocytes 8 % (21-51); MDiff Complete? YES; Metamyelocyte 2 % (0-0); Monocytes 2 % (0-10); Neutrophil 66 % (42-75); RBC Morphology Normal
--- NOTE | 2019-03-19 08:35 | CON ---
DATE OF CONSULTATION: 03/18/2019 HISTORY OF PRESENT ILLNESS: The patient was seen in the Oncology unit, room 137T. The patient is a 53-year-old female, seen today at [facility] for infected left great toe/foot. The patient has a history of being treated for a nonhealing ulcer, which penetrates the bone by Dr. Thurston at the [facility]. She was last seen by Dr. Thurston on March 08. The patient claims that over the weekend, the ulcer became worse in nature. Her left foot become swollen and red and developed foul smell. She went to the ER and was admitted into the hospital yesterday, Monday, 17 of March. The patient is currently on IV antibiotics, resting well, in no apparent distress. Family present in the room. PAST MEDICAL HISTORY: Significant for positive diabetes, insulin dependent; hyperlipidemia; hypothyroidism; neuropathy. ALLERGIES: NO DRUG ALLERGIES. SOCIAL HISTORY: No tobacco use, former smoker. No alcohol use. No recreational drugs. FAMILY HISTORY: Positive for diabetes and heart disease. MEDICATIONS: Noted in chart. PAST SURGICAL HISTORY: Includes and previous fifth digit with partial first ray resection, left foot. REVIEW OF SYSTEMS: Noted in chart. PHYSICAL EXAMINATION: LOWER EXTREMITIES: Vascular status reveals 2/4 dorsalis pedis and posterior tibial pulses bilaterally. Capillary fill time is less than 3 seconds to digits 2 through 4 on the left foot. NEUROLOGIC: Epicritic sensation is reduced. Proprioception is reduced in the bilateral lower extremities. Protected threshold is absent with a 5.07 [place] monofilament wire, bilateral feet. MUSCULOSKELETAL: Reveals 5/5 muscle grading, bilateral lower extremities, rectus foot type. Range of motion of the ankle, subtalar joint, and first MPJ on the right foot is noted to be full with no pain, no crepitation. Range of motion of the first metatarsophalangeal joint on the left foot is noted to be stiff in nature with crepitation noted on range of motion. There is a history of fifth digit partial fifth ray resection on the left foot. DERMATOLOGIC: Nonhealing 1 x 1 cm ulceration extending to bone is noted on the medial plantar aspect of the hallux interphalangeal joint in the left great toe. The overall left great toe is significantly warm in nature with dusky, cyanotic, necrotic, nonviable, macerated tissue. Incorporating the whole toe, there is a foul rancid smell from the ulcer site, left great toe. Blister macerated tissue was noted to extend to the first metatarsal head of the left foot with mild local cellulitis noted to the medial dorsal plantar aspect of the left forefoot. Underlying abscess is palpable to the left great toe and first metatarsophalangeal joint. DIAGNOSTIC STUDIES: X-rays taken on the 17 of March show the bone is demineralized. There is gas within the soft tissues of the great toe to the level of the first metatarsal. Vascular calcifications are seen. Bony findings are stable without evidence of osteomyelitis at this time. The impression was gas seen in the soft tissue of the great toe and adjacent to the first metatarsal head. ASSESSMENT AND PLAN: At this time, infection of the left great toe and first metatarsophalangeal joint, left foot. Suspicions are significantly high for positive osteomyelitis since the ulcer tracts the bone, positive soft tissue findings on x-rays. At this time, I ordered an MRI of the left foot with contrast to be performed in the morning. The patient is scheduled for surgery tomorrow evening of amputation of the left great toe and partial first ray resection, left foot, and any other bony procedures deemed necessary. The patient was placed on n.p.o. status at 10 a.m. Consent form was written to include the diagnosis and procedure as stated above. The patient is currently on ampicillin with sulbactam IV antibiotics, to continue taken now until the deep cultures of the surgical site will be taken during the time of operation. I will await MRI results tomorrow as scheduled. She plans for surgical amputation tomorrow evening. Thank you for the consult. If there are any questions, please call me at [phone]. Job ID: [id number]
--- NOTE | 2019-03-19 09:59 | MRI ---
MRI OF THE LEFT FOREFOOT AND MID FOOT WITHOUT CONTRAST: INDICATION: Diabetic foot ulcer with fever and chills. COMPARISON: Radiographs dated 03/17/2019. FINDINGS: There is diffuse abnormal subcutaneous edema with scattered subcutaneous gas surrounding the medial a spect of the forefoot as well as the soft tissues of the great toe. There is abnormal signal intensi ty seen within the marrow space of the distal great toe proximal phalanx and distal phalanx suspiciou s also for osteomyelitis. There is suspected gas within these bones. There is prominent skin bliste r involving the plantar medial aspect of the foot. There is mild increased T2 signal involving the i ntrinsic foot muscles which may reflect denervation or myositis. No deep drainable fluid collection is grossly evident. There is postsurgical change of a ray amputation involving the 5th digit. IMPRESSION: 1. Prominent soft tissue gas-producing infection involving the great toe as well as the medial aspec t of the forefoot. There is abnormal signal intensity involving the great toe proximal phalanx and d istal phalanx suspicious for osteomyelitis. There are speckled signal dropouts within the regions of bones suspicious for gas within the bones of the great toe distal phalanx and proximal phalanx. 2. Extensive cellulitis of the left foot with myositis. 3. Prominent superficial blister along the medial aspect of the forefoot. POS: OFF
[2019-03-19] MEDS: Insulin Glargine 30 UNITS in Pre-Filled Syringe 1 EACH SC SCH ×2 (11:27→21:49)
[2019-03-19] MEDS ORDERED: PROPOFOL 200 MG/20 ML VIAL ONE (15:23)
[2019-03-19] MEDS ORDERED: Ondansetron PF 4 MG/2 ML Vial ONE (15:23)
--- NOTE | 2019-03-19 16:07 | PDOC.HOSPP ---
- Subjective Encounter Date: 03/19/19 Encounter Time: 12:00 Subjective: no pain says she will have surgery this evening - Objective Vital Signs & Weight: Vital Signs (12 hours) Temp Pulse Resp BP Pulse Ox 03/19/19 15:07 99.3 F 77 14 139/63 93 L 03/19/19 11:11 98.9 F 77 16 167/68 H 95 03/19/19 08:25 84 03/19/19 07:20 98.4 F 84 14 188/84 H 94 L Weight Admit Weight 242 lb 8.136 oz Weight 242 lb 8.136 oz I&O: 03/18/19 03/19/19 03/20/19 06:59 06:59 06:59 Intake Total 600 1500 Balance 600 1500 Result Diagrams: 03/19/19 03:58 03/19/19 03:58 Additional Labs: Accuchecks 03/19/19 03/19/19 03/18/19 10:25 09:16 19:53 POC Glucose 159 H 100 192 H 03/18/19 16:01 POC Glucose 160 H Hospitalist ROS - Medication Medications: Active Medications Generic Name Dose Route Start Last Admin Trade Name Freq PRN Reason Stop Dose Admin Hydrocodone Bitart/Acetaminophen 1 tab 03/18/19 01:12 03/19/19 12:01 [employer] 5/325 PO 1 tab Q4H PRN Administration Moderate Pain (4-6) Amlodipine Besylate 5 mg 03/18/19 09:00 03/19/19 08:25 Norvasc PO 5 mg DAILY HARRY Administration Atorvastatin Calcium 20 mg 03/18/19 21:00 03/18/19 19:46 Lipitor PO 20 mg HS HARRY Administration Enoxaparin Sodium 30 mg 03/18/19 09:00 03/19/19 07:38 Lovenox SC Not Given 0900 HARRY Famotidine 20 mg 03/18/19 09:00 03/19/19 08:25 Pepcid PO 20 mg DAILY HARRY Administration Ampicillin Sodium/Sulbactam 100 mls @ 200 mls/hr 03/18/19 05:00 03/19/19 05: 06 Sodium 3 gm/ Sodium Chloride IVPB 100 mls 0500,1700 HARRY Administration Insulin Glargine 30 units/ 0.3 mls @ 0 mls/hr 03/18/19 09:00 03/19/19 11:27 Miscellaneous Medication SC Not Given BID HARRY Vancomycin HCl 750 mg/ Sodium 250 mls @ 250 mls/hr 03/18/19 23:59 03/18/19 23 :00 Chloride IVPB 250 mls 2359 HARRY Administration Sodium Chloride 1,000 mls @ 100 mls/hr 03/18/19 13:15 03/19/19 08:25 1/2 Normal Saline IV 1,000 mls .Q10H HARRY Administration Insulin Human Lispro 0 units 03/18/19 01:12 03/18/19 12:19 Humalog SC 4 unit .MODERATE SLIDING SC PRN Administration Moderate Correctional Scale Levothyroxine Sodium 50 mcg 03/19/19 06:00 03/19/19 05:06 Synthroid PO 50 mcg 0600 HARRY Administration - Exam General Appearance: awake alert Eye: PERRL, anicteric sclera ENT: no oropharyngeal lesions, moist mucosa Neck: supple, no JVD Heart: RRR, no murmur Respiratory: no wheezes, no rales Gastrointestinal: soft, non-tender, non-distended, normal bowel sounds Extremities - other findings: left gr toe wet gangrene, edema, redness over fore foot Neurological: cranial nerve grossly intact, no focal deficits Psychiatric: normal affect, A&O x 3 Hosp A/P (1) Sepsis Code(s): A41.9 - SEPSIS, UNSPECIFIED ORGANISM Status: Acute Qualifiers: Sepsis type: sepsis due to unspecified organism Sepsis acute organ dysfunction status: with acute organ dysfunction Severe sepsis shock status: without septic shock (2) Osteomyelitis Code(s): M86.9 - OSTEOMYELITIS, UNSPECIFIED Status: Acute Qualifiers: Osteomyelitis location: foot Laterality: left (3) HTN (hypertension) Code(s): I10 - ESSENTIAL (PRIMARY) HYPERTENSION Status: Chronic Qualifiers: Hypertension type: essential hypertension Qualified Code(s): I10 - Essential (primary) hypertension (4) FANG (acute kidney injury) Code(s): N17.9 - ACUTE KIDNEY FAILURE, UNSPECIFIED Status: Acute (5) Metabolic acidosis Code(s): E87.2 - ACIDOSIS Status: Acute (6) Hypothyroidism Code(s): E03.9 - HYPOTHYROIDISM, UNSPECIFIED Status: Chronic Qualifiers: Hypothyroidism type: unspecified Qualified Code(s): E03.9 - Hypothyroidism , unspecified (7) Hypoalbuminemia due to protein-calorie malnutrition Code(s): E46 - UNSPECIFIED PROTEIN-CALORIE MALNUTRITION Status: Chronic (8) Anemia Code(s): D64.9 - ANEMIA, UNSPECIFIED Status: Chronic (9) DM (diabetes mellitus), type 2, uncontrolled Code(s): E11.65 - TYPE 2 DIABETES MELLITUS WITH HYPERGLYCEMIA Status: Chronic (10) Gout Code(s): M10.9 - GOUT, UNSPECIFIED Status: Chronic Qualifiers: Gout site: unspecified site (11) Morbid obesity Code(s): E66.01 - MORBID (SEVERE) OBESITY DUE TO EXCESS CALORIES Status: Chronic (12) PVD (peripheral vascular disease) Code(s): I73.9 - PERIPHERAL VASCULAR DISEASE, UNSPECIFIED Status: Chronic - Plan is on unasyn and vanc iv fluids levemir 30 u bid for amp and debridement later this evening wound care after surgery hemostable MRI results noted
--- NOTE | 2019-03-19 19:51 | RAD ---
PORTABLE CHEST 03/19/19 PROVIDED CLINICAL HISTORY: Preop. FINDINGS: Cardiac and mediastinal silhouette is within normal limits for portable technique. No focal consolida tion, pleural fluid, or pneumothorax apparent. IMPRESSION: No evidence for an acute cardiopulmonary process. POS: BHAVANI
--- NOTE | 2019-03-19 20:15 | PRG ---
DATE OF SERVICE: 03/19/2019 SUBJECTIVE: The patient is seen and examined, noted with the following vital signs. OBJECTIVE: VITAL SIGNS: Afebrile, pulse of 77, respiratory rate of 16, O2 saturations are 95%, and blood pressure 161/68. HEENT: Unremarkable. CARDIOVASCULAR: First and second heart sounds were heard. RESPIRATORY SYSTEM: Clear to auscultation. DIGESTIVE SYSTEM: Benign abdomen. Positive bowel sounds. EXTREMITIES: Some peripheral edema. LABORATORY INVESTIGATION: Significant for creatinine that has gone down to 2.55, BUN of 40, bicarb of 21. Chemistry showed evidence of more than 10 g of proteinuria. Vitamin D level less than 3.4. PTH is 1.7. IMPRESSION: 1. Chronic kidney disease in the context of diabetic nephropathy. 2. Nephrotic range proteinuria, currently diabetic nephropathy. 3. Jncsp-ol-rclcgmh kidney disease, improving with improvement in the infection with a component of cytokine mediated injury. 4. Hypovitaminosis D. PLAN: 1. Replete vitamin D. 2. Continue current renal supportive measures. 3. Avoid potentially nephrotoxic agents. 4. Very close outpatient Nephrology followup given the significant chances of rapid deterioration in renal function. Job ID: [id number]
[2019-03-19] MEDS ORDERED: Lidocaine 1% (PF) 30 ML VIAL ONE (21:07)
[2019-03-19] MEDS: Atorvastatin Calcium 20 MG TAB PO SCH (21:49)
[2019-03-19] MEDS ORDERED: Fentanyl 100 MCG/2 ML VIAL ONE (23:28)
[2019-03-19] MEDS ORDERED: HYDROcodone/Acetaminophen 5/325 mg Tablet ONE (23:40)
[2019-03-20 01:02] LABS: Vancomycin, Trough 13.6 ug/mL
[2019-03-20] MEDS: Vancomycin HCl 750 MG in Sodium Chloride 0.9% 250 ML 250 ML IVPB SCH (01:28)
[2019-03-20] MEDS ORDERED: traMADol HCl 50 MG TAB PO SCH (01:30)
[2019-03-20] MEDS: Vancomycin HCl 1 GM in Premix Bag 1 BAG IVPB SCH (01:33)
[2019-03-20 05:02] LABS: Band 6 % (5-11); Eosinophils 2 % (0-10); Hemoglobin 10.8 g/dL (12.0-16.0); Lymphocytes 8 % (21-51); MDiff Complete? YES; Mean Corpuscular HGB CONC 31.9 g/dL (32.0-36.0); Mean Corpuscular Hemoglobin 28.4 pg (27.0-31.0); Mean Corpuscular Volume 89.1 fL (78.0-98.0); Mean Platelet Volume 8.1 fL (7.4-10.4); Monocytes 3 % (0-10); Neutrophil 81 % (42-75); Platelet Count 406 thou/uL (130-400); RBC Distribution Width 13.4 % (11.5-14.5); White Blood Cell (WBC) Count 15.9 thou/uL (4.8-10.8)
[2019-03-20 05:12] LABS: Albumin 2.1 g/dL (3.5-5.0); Anion Gap 12 mmol/L (10-20); BUN (Urea Nitrogen) 31 mg/dL (9.8-20.1); BUN/Creatinine Ratio 14.83; Calc. Creatinine Clearance 53 mL/min (70-130); Calcium 8.3 mg/dL (7.8-10.44); Carbon Dioxide 18 mmol/L (22-29); Chloride 110 mmol/L (98-107); Estimated GFR-MDRD 25; Glucose 99 mg/dL (70-105); Phosphorus 4.5 mg/dL (2.3-4.7); Potassium 4.8 mmol/L (3.5-5.1); Sodium 135 mmol/L (136-145)
[2019-03-20] MEDS: Ampicillin/Sulbactam 3 GM in Sodium Chloride 0.9% 100 ML IVPB SCH ×2 (05:43→17:38)
[2019-03-20] MEDS: Sodium Chloride 0.45% 1,000 ML IV SCH ×2 (05:48→15:19)
[2019-03-20] MEDS: Levothyroxine Sodium 50 MCG TAB PO SCH (05:53)
[2019-03-20] MEDS: HYDROcodone/Acetaminophen 10/325 mg Tablet PO PRN ×4 (08:23→21:34)
[2019-03-20] MEDS: Famotidine 20 MG TAB PO SCH (08:24)
[2019-03-20] MEDS: Amlodipine 5 MG TAB PO SCH (08:24)
[2019-03-20] MEDS: Enoxaparin Sodium 30 MG/0.3 ML SYRINGE SC SCH (08:24)
--- NOTE | 2019-03-20 09:05 | OP ---
DATE OF PROCEDURE: 03/19/2019 PREOPERATIVE DIAGNOSES: Infected left great toe; osteomyelitis, left great toe; soft tissue gas, left great toe. POSTOPERATIVE DIAGNOSES: Infected left great toe; osteomyelitis, left great toe; soft tissue gas, left great toe. PROCEDURE PERFORMED: Partial first ray resection, left foot with hallux amputation, left foot. ANESTHESIA: Local with MAC and LMA. HEMOSTASIS: Pneumatic ankle tourniquet set at 250 mmHg, left ankle. ESTIMATED BLOOD LOSS: Approximately 30 mL. DESCRIPTION OF PROCEDURE: Under mild sedation, the patient was brought to the operating room and placed on the operating room table in a supine position. A pneumatic ankle tourniquet was placed on the patient's left ankle following IV sedation and LMA. Local anesthesia was obtained proximal to the left great toe infection site utilizing a total of 15 mL of 0.5% Marcaine plain. The foot was then scrubbed, prepped and draped in the usual aseptic manner. No Esmarch was used at this time. The foot was elevated and the pneumatic ankle tourniquet was then inflated in the left ankle. Attention at this time was directed to the base of the left great toe, where a fish-mouth incision was made deep down to the bone, first MPJ joint level. The incision was extended proximally dorsomedial to the first metatarsal bone approximately midshaft proximal aspect of the first metatarsal. The incision at this time was deepened to the first MPJ joint as noted. The left great toe was disarticulated and removed from the operating field. Soft tissue and bone cultures were taken of the proximal phalanx and surrounding closed MPJ soft tissue. Aerobic and anaerobic acid fast and fungal cultures were ordered. Upon removal of the left great toe disarticulation, the first metatarsal head was noted to be viable in nature. No signs of necrosis or erosion to indicate osteomyelitis. The bone was surrounded by necrotic, dusky, nonviable, tissue. The periosteal capsular structures were carefully dissected free from their osseous attachment of the first metatarsal head and reflected. All necrotic nonviable tissue was debrided and carefully removed from the operative field exposing good granular viable tissue. The first metatarsal was freed of soft tissue down to its midshaft level. At this point in time, using a pneumatic the first metatarsal bone was resected to allow closure of the wound without any prominent first metatarsal head. The first ray partial resection was performed. The cut was made in a proximal medial to lateral distal cut. All prominent areas and rough edges to the remaining metatarsal bone were then rasped with rasp and bone rongeur. The remaining stump was noted to be smooth in nature. All remaining tissues surrounding the metatarsal amputation stump were dissected free of nonviable tissue. Good bleeding healthy tissue was noted at this level. Several incisions and dissection to the plantar pockets aspect of the foot were made, where possible purulent drainage was noted. Using blunt dissection with a finger and instrumentation, no deep pockets or abscesses were noted to the plantar deep spaces of the left foot underlying the first metatarsal head extending medially. The sesamoid apparatus was carefully dissected and removed from the surgical field. The flexor and extensor tendons to the hallux were identified, retracted distally, and cuts and removed. Upon significant debridement of all nonviable tissue, the wound was noted to be healthy and granular with good viable bleeding, oozing in nature. A Bovie was used at this time to cauterize any bleeders. The wound at this time was flushed and irrigated with copious amounts of sterile normal saline solution with irrigation using some pulse lavage machine. The deep plantar pockets of the left foot including the amputation site were irrigated extensively using 4000 mL of saline with . Upon irrigation of the wound, no further infection was noted. The tourniquet was released. Good viable bleeding was noted. At this time, a Surgicel type dressing was applied to the base of the wound, packed with 1/2-inch Nu Gauze plain. 4x4s were then used to cover the open wound with compression. The wound was then dressed with Kerlix and Rey wrap 4-inch in compressive, but non-constrictive manner. The wound was left open due to infection. No closure of any type was performed with sutures. As noted upon deflation of the ankle tourniquet to the left lower extremity, the remaining digits 2 through 4 on the left foot showed good capillary fill time. The patient tolerated the procedure and anesthesia well and was transported to the recovery room with vital signs stable and vascular status to the remaining toes, left foot intact. Following a period of postoperative monitoring, the patient will be sent back to her room, inhouse patient, with the following preoperative instructions. Dressing is to be maintained dry until tomorrow. The Wound Care Team was consulted for wound VAC therapy as soon as possible starting tomorrow. The patient needs to be nonweightbearing on the left foot with bathroom privileges, to elevate the left foot when at rest at all times at bedside, to continue IV antibiotics until further noticed. Dr. Patel, Infectious Disease was consulted to evaluate and treat pending final intraoperative cultures. Nursing is to contact me for postoperative followup care or if any problems or questions arise. The patient was written prescriptions for pain management, [place] 5/325 one tablet orally every 6 hours p.r.n. pain. Cell phone number was left or dispensed for nursing to call if questions. The patient will be followed up tomorrow. If there are any questions or concerns, please call me at [phone]. Job ID: [id number]
[2019-03-20] MEDS: Insulin Glargine 30 UNITS in Pre-Filled Syringe 1 EACH SC SCH ×2 (10:22→20:32)
[2019-03-20] MEDS: Ergocalciferol 1.25 MG(50,000 UNITS) CAP PO SCH (11:10)
--- NOTE | 2019-03-20 12:41 | PDOC.HOSPP ---
- Subjective Encounter Date: 03/20/19 Encounter Time: 11:30 Subjective: feels better, slight pain in left toe had partial ray amp of left gr toe yesterday evening - Objective Vital Signs & Weight: Vital Signs (12 hours) Temp Pulse Resp BP BP Pulse Ox 03/20/19 08:36 99.5 F 96 18 175/79 H 94 L 03/20/19 08:24 94 03/20/19 08:00 99.5 F 96 18 175/79 H 94 L Weight Admit Weight 242 lb 8.136 oz Weight 242 lb 8.136 oz I&O: 03/19/19 03/20/19 03/21/19 06:59 06:59 06:59 Intake Total 1500 2280 Balance 1500 2280 Result Diagrams: 03/20/19 04:31 03/20/19 04:31 Additional Labs: Accuchecks 03/20/19 03/20/19 03/19/19 11:15 08:27 20:13 POC Glucose 80 84 78 03/19/19 16:57 POC Glucose 108 Hospitalist ROS - Medication Medications: Active Medications Generic Name Dose Route Start Last Admin Trade Name Freq PRN Reason Stop Dose Admin Hydrocodone Bitart/Acetaminophen 1 tab 03/20/19 01:17 03/20/19 12:18 [place] 10/325 PO 1 tab Q4H PRN Administration Moderate Pain (4-6) Amlodipine Besylate 5 mg 03/18/19 09:00 03/20/19 08:24 Norvasc PO 5 mg DAILY HARRY Administration Atorvastatin Calcium 20 mg 03/18/19 21:00 03/19/19 21:49 Lipitor PO Not Given HS HARRY Enoxaparin Sodium 30 mg 03/18/19 09:00 03/20/19 08:24 Lovenox SC 30 mg 0900 HARRY Administration Ergocalciferol 1.25 mg 03/20/19 09:00 03/20/19 11:10 Drisdol PO 1.25 mg Q7DAYS HARRY Administration Famotidine 20 mg 03/18/19 09:00 03/20/19 08:24 Pepcid PO 20 mg DAILY HARRY Administration Ampicillin Sodium/Sulbactam 100 mls @ 200 mls/hr 03/18/19 05:00 03/20/19 05: 43 Sodium 3 gm/ Sodium Chloride IVPB 100 mls 0500,1700 HARRY Administration Insulin Glargine 30 units/ 0.3 mls @ 0 mls/hr 03/18/19 09:00 03/20/19 10:22 Miscellaneous Medication SC 0.3 mls BID HARRY Administration Sodium Chloride 1,000 mls @ 100 mls/hr 03/18/19 13:15 03/20/19 05:48 1/2 Normal Saline IV 1,000 mls .Q10H HARRY Administration Vancomycin HCl 1 gm/ Device 200 mls @ 200 mls/hr 03/20/19 02:00 03/20/19 01: 33 IVPB 200 mls 0200 HARRY Administration Insulin Human Lispro 0 units 03/18/19 01:12 03/18/19 12:19 Humalog SC 4 unit .MODERATE SLIDING SC PRN Administration Moderate Correctional Scale Levothyroxine Sodium 50 mcg 03/19/19 06:00 03/20/19 05:53 Synthroid PO 50 mcg 0600 HARRY Administration - Exam General Appearance: NAD, awake alert Eye: PERRL, anicteric sclera ENT: no oropharyngeal lesions, moist mucosa Neck: supple, no JVD Heart: RRR, no murmur Respiratory: no wheezes, no rales Gastrointestinal: soft, non-tender, non-distended, normal bowel sounds Extremities: no edema Extremities - other findings: left fore foot in dressing Neurological: cranial nerve grossly intact, no focal deficits Psychiatric: normal affect, A&O x 3 Hosp A/P (1) Sepsis Code(s): A41.9 - SEPSIS, UNSPECIFIED ORGANISM Status: Acute Qualifiers: Sepsis type: sepsis due to unspecified organism Sepsis acute organ dysfunction status: with acute organ dysfunction Severe sepsis shock status: without septic shock (2) Osteomyelitis Code(s): M86.9 - OSTEOMYELITIS, UNSPECIFIED Status: Acute Qualifiers: Osteomyelitis location: foot Laterality: left (3) HTN (hypertension) Code(s): I10 - ESSENTIAL (PRIMARY) HYPERTENSION Status: Chronic Qualifiers: Hypertension type: essential hypertension Qualified Code(s): I10 - Essential (primary) hypertension (4) FANG (acute kidney injury) Code(s): N17.9 - ACUTE KIDNEY FAILURE, UNSPECIFIED Status: Acute (5) Metabolic acidosis Code(s): E87.2 - ACIDOSIS Status: Acute (6) Hypothyroidism Code(s): E03.9 - HYPOTHYROIDISM, UNSPECIFIED Status: Chronic Qualifiers: Hypothyroidism type: unspecified Qualified Code(s): E03.9 - Hypothyroidism , unspecified (7) Hypoalbuminemia due to protein-calorie malnutrition Code(s): E46 - UNSPECIFIED PROTEIN-CALORIE MALNUTRITION Status: Chronic (8) Anemia Code(s): D64.9 - ANEMIA, UNSPECIFIED Status: Chronic (9) DM (diabetes mellitus), type 2, uncontrolled Code(s): E11.65 - TYPE 2 DIABETES MELLITUS WITH HYPERGLYCEMIA Status: Chronic (10) Gout Code(s): M10.9 - GOUT, UNSPECIFIED Status: Chronic Qualifiers: Gout site: unspecified site (11) Morbid obesity Code(s): E66.01 - MORBID (SEVERE) OBESITY DUE TO EXCESS CALORIES Status: Chronic (12) PVD (peripheral vascular disease) Code(s): I73.9 - PERIPHERAL VASCULAR DISEASE, UNSPECIFIED Status: Chronic - Plan s/p partial ray amp of left gr toe, will have wound care/vac placed today is on unasyn and vanc iv fluids, renal function slightly better levemir 30 u bid Needs to ambulate in [facility] consultation for likely out pt wound care/vac, not sure if she will need iv antibiotics, await full culture results. hemostable
--- NOTE | 2019-03-20 20:02 | EKG ---
Test Reason : Blood Pressure : / mmHG Vent. Rate : 077 BPM Atrial Rate : 077 BPM P-R Int : 124 ms QRS Dur : 078 ms QT Int : 370 ms P-R-T Axes : 036 016 067 degrees QTc Int : 418 ms Normal sinus rhythm Normal ECG When compared with ECG of 07-SEP-2018 11:58, No significant change was found Confirmed by BRUCE MCCALL, SBetty ([id number]) on 03/20/2019 8:02:20 PM Referred By: Confirmed By:DR. Joni BARRERA MD
[2019-03-20] MEDS: Atorvastatin Calcium 20 MG TAB PO SCH (20:31)
[2019-03-20] MEDS: hydrALAZINE 20 MG/ML VIAL SLOW IVP PRN (20:46)
--- NOTE | 2019-03-20 22:17 | CON ---
DATE OF CONSULTATION: 03/20/2019 REASON FOR CONSULTATION: Left first toe amputation for management of osteomyelitis. HISTORY OF PRESENT ILLNESS: A 53-year-old whom I had seen previously with a history of type 2 diabetes, obesity, chronic smoking, and peripheral vascular disease with a right foot inflammatory process. Patient was treated with broad-spectrum antimicrobial coverage, eventually underwent revascularization with a stent in the right side. Now, she presents with inflammatory process in the right first toe, which was treated in the outpatient setting with Bactrim without improvement and eventually was admitted. PHYSICAL EXAMINATION: VITAL SIGNS: Initial vital signs with a T-max 98, blood pressure 156/70, and pulse 76. SKIN: Shows the edema in lower extremities in the area of amputation with negative pressure dressing, left first toe. The right foot inflammatory process seen previously has completely resolved. PAST MEDICAL HISTORY: Type 2 diabetes, obesity, hypertension, pyelonephritis, and right foot cellulitis. ALLERGIES: NONE. FAMILY HISTORY: Noncontributory. SOCIAL HISTORY: Current smoker. Lives in the area. CURRENT MEDICATIONS: 1. Tylenol. 2. [place]. 3. Norvasc. 4. Ampicillin. 5. Sulbactam. 6. Dulcolax. 7. Lovenox. 8. Levothyroxine. 9. Vancomycin. 10. P.r.n. medications. 11. Insulin. LABORATORY FINDINGS: White cell count down from 22 to 15.9, hemoglobin 10.8, and platelets 406. GFR is up to 25 from admission. Liver profile normal. Albumin 2.1. Bacterial cultures with gram-positive cocci in pairs in 2 samples from the bone. IMAGING STUDIES: Include a lower extremity MRI. Prominent soft tissue gas producing infection involving the great toe as well as the medial aspect of the forefoot, abnormal signal intensity involving great toe proximal phalanx and distal phalanx. PAST MEDICAL HISTORY: Includes type 2 diabetes, gout, recent cellulitis of the right foot treated this year with complete resolution of the process. History of pyelonephritis secondary to E coli few years ago. ALLERGIES: NONE. FAMILY HISTORY: Noncontributory. SOCIAL HISTORY: Current smoker. Works daily. Lot of walking in her work activity. PHYSICAL EXAMINATION: GENERAL: Currently, Ms. Carlson is awake. She does not appear in distress. No headaches. No shortness of breath or abdominal pain. No diarrhea. Not much pain in the left foot. VITAL SIGNS: T-max 99.5, blood pressure is 160/67, pulse 80, respirations 18, and O2 saturation 94. GENERAL: No distress. HEENT: Ocular movements conjugate. Oral cavity normal. NECK: Supple. LUNGS: Symmetric air entry. HEART: S1-S2, regular rate. ABDOMEN: Soft, nondistended, nontender. She is voiding in the toilet and bedpan. EXTREMITIES: Left foot with negative pressure dressing. LABORATORY DATA: White cell count is 15.9, hemoglobin 10.8, and platelets 406. Creatinine 2.89, little better than admission. Microbiology with pending cultures, the gram stain obtained suggestive of Streptococcus, possible mixed culture. ASSESSMENT: 1. Type 2 diabetes. 2. Prior right foot cellulitis, now with osteomyelitis of the left first toe, status post ray amputation. We will wait for the pathology report to see if the margins are clear and then depending on that and the results of the cultures susceptibility profile, we will recommend long-term therapy for this infection to prevent recrudescence. In view of the peripheral vascular disease, there is a high risk of persistence of the infection and recrudescence. Job ID: [id number] [facility]
[2019-03-21] MEDS: HYDROcodone/Acetaminophen 10/325 mg Tablet PO PRN ×4 (01:54→20:41)
[2019-03-21] MEDS: Sodium Chloride 0.45% 1,000 ML IV SCH (01:55)
[2019-03-21] MEDS: Vancomycin HCl 1 GM in Premix Bag 1 BAG IVPB SCH (01:56)
[2019-03-21] MEDS: Ampicillin/Sulbactam 3 GM in Sodium Chloride 0.9% 100 ML IVPB SCH ×2 (05:06→16:24)
[2019-03-21 05:20] LABS: Band 13 % (5-11); Eosinophils 1 % (0-10); Hemoglobin 9.8 g/dL (12.0-16.0); Lymphocytes 11 % (21-51); MDiff Complete? YES; Mean Corpuscular HGB CONC 31.4 g/dL (32.0-36.0); Mean Corpuscular Hemoglobin 27.6 pg (27.0-31.0); Mean Corpuscular Volume 87.8 fL (78.0-98.0); Mean Platelet Volume 7.8 fL (7.4-10.4); Monocytes 6 % (0-10); Neutrophil 69 % (42-75); Platelet Count 404 thou/uL (130-400); RBC Distribution Width 13.4 % (11.5-14.5); Red Blood Cell (RBC) Count 3.55 mill/uL (4.20-5.40); White Blood Cell (WBC) Count 15.4 thou/uL (4.8-10.8)
[2019-03-21 05:21] LABS: Albumin 1.7 g/dL (3.5-5.0); Anion Gap 11 mmol/L (10-20); BUN (Urea Nitrogen) 27 mg/dL (9.8-20.1); Calc. Creatinine Clearance 62 mL/min (70-130); Calcium 7.9 mg/dL (7.8-10.44); Carbon Dioxide 18 mmol/L (22-29); Chloride 111 mmol/L (98-107); Estimated GFR-MDRD 29; Glucose 90 mg/dL (70-105); Phosphorus 4.8 mg/dL (2.3-4.7); Potassium 4.6 mmol/L (3.5-5.1); Sodium 135 mmol/L (136-145)
[2019-03-21] MEDS: Levothyroxine Sodium 50 MCG TAB PO SCH (06:12)
--- NOTE | 2019-03-21 08:18 | PRG ---
DATE OF SERVICE: 03/21/2019 SUBJECTIVE: The patient is seen and examined. No new complaints. Noted with the following vital signs. OBJECTIVE: VITAL SIGNS: Afebrile, temperature 98.2, pulse 82, respiratory rate of 16, blood pressure 150/69 to 190/77, O2 saturation of 95%. HEENT: Unremarkable. CARDIOVASCULAR: First and second heart sounds were heard. RESPIRATORY: Clear to auscultation. DIGESTIVE SYSTEM: Revealed a benign abdomen. Positive bowel sounds. EXTREMITIES: No peripheral edema. IMPRESSION: 1. Acute on chronic kidney disease, which seems to be improving, status post amputation of infected left foot. 2. Chronic kidney disease in the context of hypertensive nephropathy with significant nephrotic proteinuria. 3. Osteomyelitis/diabetic foot on the left. PLAN: 1. We will continue with current renal supportive medicines and we will continue to renally dose all medications. Avoid potentially nephrotoxic agents. 2. Very close outpatient Nephrology followup status post discharge is strongly recommended given the significant proteinuria in this patient. 3. When the renal function stabilizes then likely to benefit from or angiotensin receptor jil, the significant proteinuria in this patient. 4. We will continue with current IV fluid resuscitation in this patient significantly hypertensive. 5. Further management will be dependent on the clinical course. Job ID: [id number]
[2019-03-21] MEDS: Enoxaparin Sodium 30 MG/0.3 ML SYRINGE SC SCH (09:08)
[2019-03-21] MEDS: Amlodipine 5 MG TAB PO SCH (09:08)
[2019-03-21] MEDS: Insulin Glargine 30 UNITS in Pre-Filled Syringe 1 EACH SC SCH ×2 (09:11→20:39)
[2019-03-21] MEDS: Bisacodyl 5 MG TAB PO PRN (09:14)
[2019-03-21] MEDS: Famotidine 20 MG TAB PO SCH (12:55)
--- NOTE | 2019-03-21 17:33 | PRG ---
DATE OF SERVICE: 03/21/2019 SUBJECTIVE: The patient is seen and examined, noted with the following vital signs. OBJECTIVE: VITAL SIGNS: Afebrile. Temperature 98.1, pulse 80, respiratory rate of 16, O2 saturations are 94%, blood pressure 154/66. HEENT: Unremarkable. CARDIOVASCULAR SYSTEM: First and second heart sounds were heard. RESPIRATORY SYSTEM: Clear to auscultation. DIGESTIVE SYSTEM: Revealed a benign abdomen with positive bowel sounds. EXTREMITIES: No peripheral edema. SKIN: No new gross rash. LYMPHATICS: No peripheral lymphadenopathy. LABORATORY INVESTIGATION: Showed a creatinine down to 1.8, phosphorus 4.8, albumin of 1.7, bicarb of 18. IMPRESSION: 1. Acute on chronic kidney disease, which seems to have improved. 2. Nephrotic range proteinuria in the context of #3. 3. Diabetic nephropathy. 4. Metabolic acidosis. 5. Hyperphosphatemia. PLAN: 1. We will continue current renal supportive measures. 2. I would like this patient to be on angiotensin receptor jil or angiotensin converting enzyme inhibitor because of significant proteinuria. However, we will wait until the patient's renal function is stabilized. 3. Close outpatient Nephrology followup strongly recommended. Job ID: [id number]
--- NOTE | 2019-03-21 17:43 | PDOC.HOSPP ---
- Subjective Encounter Date: 03/21/19 Encounter Time: 10:00 Subjective: feels better, no pain today has not ambulated yet - Objective Vital Signs & Weight: Vital Signs (12 hours) Temp Pulse Resp BP Pulse Ox 03/21/19 12:00 79 154/66 H 03/21/19 10:00 98.1 F 80 16 164/67 H 94 L 03/21/19 09:08 76 Weight Admit Weight 242 lb 8.136 oz Weight 242 lb 8.136 oz I&O: 03/20/19 03/21/19 03/22/19 06:59 06:59 06:59 Intake Total 2280 3886 1850 Balance 2280 3886 1850 Result Diagrams: 03/21/19 04:40 03/21/19 04:40 Additional Labs: Accuchecks 03/21/19 03/21/19 03/21/19 16:58 13:09 05:31 POC Glucose 87 88 85 03/20/19 20:23 POC Glucose 112 H Hospitalist ROS - Medication Medications: Active Medications Generic Name Dose Route Start Last Admin Trade Name Freq PRN Reason Stop Dose Admin Hydrocodone Bitart/Acetaminophen 1 tab 03/20/19 01:17 03/21/19 16:25 [place] 10/325 PO 1 tab Q4H PRN Administration Moderate Pain (4-6) Amlodipine Besylate 5 mg 03/18/19 09:00 03/21/19 09:08 Norvasc PO 5 mg DAILY HARRY Administration Atorvastatin Calcium 20 mg 03/18/19 21:00 03/20/19 20:31 Lipitor PO 20 mg HS HARRY Administration Bisacodyl 10 mg 03/18/19 01:12 03/21/19 09:14 Dulcolax PO 10 mg DAILYPRN PRN Administration Constipation Enoxaparin Sodium 30 mg 03/18/19 09:00 03/21/19 09:08 Lovenox SC 30 mg 0900 HARRY Administration Ergocalciferol 1.25 mg 03/20/19 09:00 03/20/19 11:10 Drisdol PO 1.25 mg Q7DAYS HARRY Administration Famotidine 20 mg 03/18/19 09:00 03/21/19 12:55 Pepcid PO Not Given DAILY HARRY Hydralazine HCl 10 mg 03/20/19 20:34 03/20/19 20:46 Apresoline SLOW IVP 10 mg Q4H PRN Administration SBP Greater Than 180 Ampicillin Sodium/Sulbactam 100 mls @ 200 mls/hr 03/18/19 05:00 03/21/19 16: 24 Sodium 3 gm/ Sodium Chloride IVPB 100 mls 0500,1700 HARRY Administration Insulin Glargine 30 units/ 0.3 mls @ 0 mls/hr 03/18/19 09:00 03/21/19 09:11 Miscellaneous Medication SC 0.3 mls BID HARRY Administration Vancomycin HCl 1 gm/ Device 200 mls @ 200 mls/hr 03/20/19 02:00 03/21/19 01: 56 IVPB 200 mls 0200 HARRY Administration Insulin Human Lispro 0 units 03/18/19 01:12 03/18/19 12:19 Humalog SC 4 unit .MODERATE SLIDING SC PRN Administration Moderate Correctional Scale Levothyroxine Sodium 50 mcg 03/19/19 06:00 03/21/19 06:12 Synthroid PO 50 mcg 0600 HARRY Administration Sodium Chloride 10 ml 03/20/19 21:00 03/21/19 09:09 Flush - Normal Saline IVF 10 ml Q12HR HARRY Administration - Exam General Appearance: NAD, awake alert Eye: PERRL, anicteric sclera ENT: no oropharyngeal lesions, moist mucosa Neck: supple, no JVD Heart: RRR, no gallops Respiratory: no wheezes, no rales Gastrointestinal: soft, non-tender, non-distended, normal bowel sounds Extremities - other findings: left forefoot in dressing Neurological: cranial nerve grossly intact, no focal deficits Psychiatric: normal affect, A&O x 3 Hosp A/P (1) Sepsis Code(s): A41.9 - SEPSIS, UNSPECIFIED ORGANISM Status: Acute Qualifiers: Sepsis type: sepsis due to unspecified organism Sepsis acute organ dysfunction status: with acute organ dysfunction Severe sepsis shock status: without septic shock (2) Osteomyelitis Code(s): M86.9 - OSTEOMYELITIS, UNSPECIFIED Status: Acute Qualifiers: Osteomyelitis location: foot Laterality: left (3) HTN (hypertension) Code(s): I10 - ESSENTIAL (PRIMARY) HYPERTENSION Status: Chronic Qualifiers: Hypertension type: essential hypertension Qualified Code(s): I10 - Essential (primary) hypertension (4) FANG (acute kidney injury) Code(s): N17.9 - ACUTE KIDNEY FAILURE, UNSPECIFIED Status: Acute (5) Metabolic acidosis Code(s): E87.2 - ACIDOSIS Status: Acute (6) Hypothyroidism Code(s): E03.9 - HYPOTHYROIDISM, UNSPECIFIED Status: Chronic Qualifiers: Hypothyroidism type: unspecified Qualified Code(s): E03.9 - Hypothyroidism , unspecified (7) Hypoalbuminemia due to protein-calorie malnutrition Code(s): E46 - UNSPECIFIED PROTEIN-CALORIE MALNUTRITION Status: Chronic (8) Anemia Code(s): D64.9 - ANEMIA, UNSPECIFIED Status: Chronic (9) DM (diabetes mellitus), type 2, uncontrolled Code(s): E11.65 - TYPE 2 DIABETES MELLITUS WITH HYPERGLYCEMIA Status: Chronic (10) Gout Code(s): M10.9 - GOUT, UNSPECIFIED Status: Chronic Qualifiers: Gout site: unspecified site (11) Morbid obesity Code(s): E66.01 - MORBID (SEVERE) OBESITY DUE TO EXCESS CALORIES Status: Chronic (12) PVD (peripheral vascular disease) Code(s): I73.9 - PERIPHERAL VASCULAR DISEASE, UNSPECIFIED Status: Chronic - Plan s/p partial ray amp of left gr toe, wound care, not sure if vac will be placed, if so will need outpt approval for the same/await podiatry opinion. is on unasyn and vanck, full sensitivities are pending, path is pending iv fluids, renal function slightly better levemir 30 u bid Needs to ambulate in hallway CM consultation for likely out pt wound care/vac, not sure if she will need iv antibiotics, await full culture results. hemostable
[2019-03-21] MEDS: hydrALAZINE 20 MG/ML VIAL SLOW IVP PRN (18:02)
--- NOTE | 2019-03-21 20:19 | RAD ---
Radiograph left foot 3 views: DATE: 03/21/2019 Time: 7:52 PM HISTORY: 53-year-old female status post amputation of first toe. COMPARISON: 03/17/2019 FINDINGS: There is new amputation at the proximal-mid diaphysis of the first metatarsal. The amputation margins of bone appear unremarkable. Chronic osseous deformity and thickening of fifth metatarsal diaphysis. IMPRESSION: 1. Status post new amputation at mid shaft of first metatarsal. 2. Old, healed fracture deformity of fifth metatarsal shaft.
[2019-03-21] MEDS: Atorvastatin Calcium 20 MG TAB PO SCH (20:40)
--- NOTE | 2019-03-22 01:13 | CON ---
DATE OF CONSULTATION: HISTORY OF PRESENT ILLNESS: The patient was seen at bedside today. No apparent distress, resting well. Vital signs stable. Status post partial ray resection, hallux amputation of the left foot x2 days. Good appetite. The dressing noted to be dry and intact in nature on the left foot. No strikethrough bleeding noted. Wound Care team has presented for application of wound VAC. Objective findings continue to show peripheral neuropathy in bilateral lower extremities. Vascular status remains intact since last visit. Digits 2 through 5 have good immediate cap fill response. The open surgical wound amputation site is approximately 8 x 6 cm in diameter to the medial dorsal left foot. Overlying browny Surgicel decomposing dressing material noted. Upon debridement and removal of the Surgicel material, I noted clean granular open wound with good viable bleeding. The metatarsal stump to the first ray is barely visible with good overlying granulation tissue seen. The amputation site is smooth on palpation. Overall, the wound is healthy, viable bleeding tissue. No signs of infection. No signs of foul smell. Some yellow brown fluff to the paramarginal edges. ASSESSMENT AND PLAN: Status post hallux amputation, partial first ray resection of the left foot x2 days. Prognosis stable. Started wound VAC therapy today, applied by Wound Care Team. Continue postop orders consisting of nonweightbearing on the left foot. I ordered x-rays, 3 views, left foot postoperatively today to assess surgical site. CBC with diff was also ordered. Dr. Patel has seen the patient. The patient is currently on Unasyn IV antibiotic and vancomycin IV antibiotic. The patient will be followed up today or tomorrow over the weekend with Dr. Harrison for possible discharge orders. If there are any questions or concerns, please call me at [phone]. Job ID: [id number]
[2019-03-22 01:27] LABS: Vancomycin, Trough 18.9 ug/mL
[2019-03-22] MEDS: Vancomycin HCl 1 GM in Premix Bag 1 BAG IVPB SCH (01:36)
[2019-03-22 04:18] LABS: #Eosinphils 0.3 thou/uL (0.0-0.7); #Lymphocytes 1.8 thou/uL (1.20-3.40); #Neutrophils 12.4 thou/uL (1.40-6.50); %Basophils 0.2 % (0.0-1.0); %Eosinophils 1.8 % (0.0-10.0); %Lymphocytes 11.4 % (21.0-51.0); %Monocytes 6.6 % (0.0-10.0); Hemoglobin 10.6 g/dL (12.0-16.0); Mean Corpuscular HGB CONC 31.9 g/dL (32.0-36.0); Mean Corpuscular Hemoglobin 27.9 pg (27.0-31.0); Mean Corpuscular Volume 87.3 fL (78.0-98.0); Mean Platelet Volume 7.4 fL (7.4-10.4); Platelet Count 443 thou/uL (130-400); RBC Distribution Width 13.4 % (11.5-14.5); Red Blood Cell (RBC) Count 3.79 mill/uL (4.20-5.40); White Blood Cell (WBC) Count 15.6 thou/uL (4.8-10.8)
[2019-03-22 04:31] LABS: Albumin 1.9 g/dL (3.5-5.0); Anion Gap 12 mmol/L (10-20); BUN (Urea Nitrogen) 25 mg/dL (9.8-20.1); BUN/Creatinine Ratio 14.62; Calc. Creatinine Clearance 65 mL/min (70-130); Calcium 8.3 mg/dL (7.8-10.44); Carbon Dioxide 15 mmol/L (22-29); Chloride 112 mmol/L (98-107); Estimated GFR-MDRD 31; Phosphorus 5.1 mg/dL (2.3-4.7); Potassium 4.9 mmol/L (3.5-5.1); Sodium 134 mmol/L (136-145)
[2019-03-22 04:38] LABS: Glucose 51 mg/dL (70-105)
[2019-03-22] MEDS: Ampicillin/Sulbactam 3 GM in Sodium Chloride 0.9% 100 ML IVPB SCH ×2 (05:08→17:54)
[2019-03-22] MEDS: Levothyroxine Sodium 50 MCG TAB PO SCH (05:08)
[2019-03-22] MEDS: Insulin Glargine 20 UNITS in Pre-Filled Syringe 1 EACH SC SCH ×2 (07:44→22:13)
[2019-03-22] MEDS: HYDROcodone/Acetaminophen 10/325 mg Tablet PO PRN ×2 (07:46→17:56)
[2019-03-22] MEDS: Amlodipine 5 MG TAB PO SCH (07:46)
[2019-03-22] MEDS: Enoxaparin Sodium 30 MG/0.3 ML SYRINGE SC SCH (07:47)
[2019-03-22] MEDS: Famotidine 20 MG TAB PO SCH (07:47)
--- NOTE | 2019-03-22 12:26 | PDOC.HOSPP ---
- Subjective Encounter Date: 03/22/19 Encounter Time: 10:15 Subjective: awake, pain is better has wound vac now stood up with PT this am - Objective Vital Signs & Weight: Vital Signs (12 hours) Temp Pulse Resp BP Pulse Ox 03/22/19 07:50 98.7 F 83 14 165/70 H 94 L 03/22/19 07:49 85 191/73 H 03/22/19 04:00 98.6 F 85 18 175/75 H 93 L Weight Admit Weight 242 lb 8.136 oz Weight 242 lb 8.136 oz I&O: 03/21/19 03/22/19 03/23/19 06:59 06:59 06:59 Intake Total 3886 1850 Balance 3886 1850 Result Diagrams: 03/22/19 04:10 03/22/19 04:10 Additional Labs: Accuchecks 03/22/19 03/21/19 03/21/19 05:25 20:21 16:58 POC Glucose 105 99 87 03/21/19 13:09 POC Glucose 88 Hospitalist ROS - Medication Medications: Active Medications Generic Name Dose Route Start Last Admin Trade Name Freq PRN Reason Stop Dose Admin Hydrocodone Bitart/Acetaminophen 1 tab 03/20/19 01:17 03/22/19 07:46 [place] 10/325 PO 1 tab Q4H PRN Administration Moderate Pain (4-6) Amlodipine Besylate 5 mg 03/18/19 09:00 03/22/19 07:46 Norvasc PO 5 mg DAILY HARRY Administration Atorvastatin Calcium 20 mg 03/18/19 21:00 03/21/19 20:40 Lipitor PO 20 mg HS HARRY Administration Bisacodyl 10 mg 03/18/19 01:12 03/21/19 09:14 Dulcolax PO 10 mg DAILYPRN PRN Administration Constipation Dextrose/Water 25 gm 03/18/19 01:12 03/22/19 04:39 Dextrose 50% SLOW IVP 25 gm PRN PRN Administration Hypoglycemia Enoxaparin Sodium 30 mg 03/18/19 09:00 03/22/19 07:47 Lovenox SC 30 mg 0900 HARRY Administration Ergocalciferol 1.25 mg 03/20/19 09:00 03/20/19 11:10 Drisdol PO 1.25 mg Q7DAYS HARRY Administration Famotidine 20 mg 03/18/19 09:00 03/22/19 07:47 Pepcid PO 20 mg DAILY HARRY Administration Hydralazine HCl 10 mg 03/20/19 20:34 03/21/19 18:02 Apresoline SLOW IVP 10 mg Q4H PRN Administration SBP Greater Than 180 Ampicillin Sodium/Sulbactam 100 mls @ 200 mls/hr 03/18/19 05:00 03/22/19 05: 08 Sodium 3 gm/ Sodium Chloride IVPB 100 mls 0500,1700 HARRY Administration Vancomycin HCl 1 gm/ Device 200 mls @ 200 mls/hr 03/20/19 02:00 03/22/19 01: 36 IVPB 200 mls 0200 HARRY Administration Insulin Glargine 20 units/ 0.2 mls @ 0 mls/hr 03/22/19 09:00 03/22/19 07:44 Miscellaneous Medication SC Not Given BID HARRY Insulin Human Lispro 0 units 03/18/19 01:12 03/18/19 12:19 Humalog SC 4 unit .MODERATE SLIDING SC PRN Administration Moderate Correctional Scale Levothyroxine Sodium 50 mcg 03/19/19 06:00 03/22/19 05:08 Synthroid PO 50 mcg 0600 HARRY Administration Sodium Chloride 10 ml 03/20/19 21:00 03/21/19 20:42 Flush - Normal Saline IVF 10 ml Q12HR HARRY Administration Sodium Chloride 10 ml 03/20/19 20:40 03/22/19 05:08 Flush - Normal Saline IVF 10 ml PRN PRN Administration Saline Flush - Exam General Appearance: NAD, awake alert Eye: PERRL, anicteric sclera ENT: no oropharyngeal lesions, moist mucosa Neck: supple, no JVD Heart: RRR, no murmur, no gallops Respiratory: no wheezes, no rales Gastrointestinal: soft, non-tender, non-distended, normal bowel sounds Extremities: no cyanosis Extremities - other findings: left forefoot in wound vac Neurological: cranial nerve grossly intact, no focal deficits Psychiatric: normal affect, A&O x 3 Hosp A/P (1) Sepsis Code(s): A41.9 - SEPSIS, UNSPECIFIED ORGANISM Status: Acute Qualifiers: Sepsis type: sepsis due to unspecified organism Sepsis acute organ dysfunction status: with acute organ dysfunction Severe sepsis shock status: without septic shock (2) Osteomyelitis Code(s): M86.9 - OSTEOMYELITIS, UNSPECIFIED Status: Acute Qualifiers: Osteomyelitis location: foot Laterality: left (3) HTN (hypertension) Code(s): I10 - ESSENTIAL (PRIMARY) HYPERTENSION Status: Chronic Qualifiers: Hypertension type: essential hypertension Qualified Code(s): I10 - Essential (primary) hypertension (4) FANG (acute kidney injury) Code(s): N17.9 - ACUTE KIDNEY FAILURE, UNSPECIFIED Status: Acute (5) Metabolic acidosis Code(s): E87.2 - ACIDOSIS Status: Acute (6) Hypothyroidism Code(s): E03.9 - HYPOTHYROIDISM, UNSPECIFIED Status: Chronic Qualifiers: Hypothyroidism type: unspecified Qualified Code(s): E03.9 - Hypothyroidism , unspecified (7) Hypoalbuminemia due to protein-calorie malnutrition Code(s): E46 - UNSPECIFIED PROTEIN-CALORIE MALNUTRITION Status: Chronic (8) Anemia Code(s): D64.9 - ANEMIA, UNSPECIFIED Status: Chronic (9) DM (diabetes mellitus), type 2, uncontrolled Code(s): E11.65 - TYPE 2 DIABETES MELLITUS WITH HYPERGLYCEMIA Status: Chronic (10) Gout Code(s): M10.9 - GOUT, UNSPECIFIED Status: Chronic Qualifiers: Gout site: unspecified site (11) Morbid obesity Code(s): E66.01 - MORBID (SEVERE) OBESITY DUE TO EXCESS CALORIES Status: Chronic (12) PVD (peripheral vascular disease) Code(s): I73.9 - PERIPHERAL VASCULAR DISEASE, UNSPECIFIED Status: Chronic - Plan s/p partial ray amp of left gr toe, wound vac, will need outpt approval for the same is on unasyn and vanck, full sensitivities are pending, path is pending, depending on results may need picc/iv or oral antibiotics renal function slightly better levemir 30 u bid Needs to ambulate in hallway CM consultation for likely out pt wound care/vac, not sure if she will need iv antibiotics, await full culture results. hemostable
--- NOTE | 2019-03-22 15:28 | PRG ---
DATE OF SERVICE: 03/22/2019 SUBJECTIVE: The patient is seen and examined with no new complaint, noted with the following vital signs. OBJECTIVE: VITAL SIGNS: Afebrile, temperature 98.7, pulse 83, respiratory rate of 14, O2 saturation of 94%, and blood pressure 167/70. HEENT: Unremarkable. CARDIOVASCULAR SYSTEM: First and second heart sounds were heard. RESPIRATORY SYSTEM: Clear to auscultation. DIGESTIVE SYSTEM: Revealed a benign abdomen with positive bowel sounds. EXTREMITIES: No peripheral edema. SKIN: No new gross rash. LYMPHATICS: No peripheral lymphadenopathy. LABORATORY INVESTIGATION: Showed a creatinine down to 1.71 with BUN of 25 and bicarb of 15. IMPRESSION: 1. Acute on chronic kidney disease, which seems to be improved. 2. Diabetic nephropathy with nephrotic range proteinuria. 3. Nephrotic range proteinuria. 4. Hypovitaminosis D. PLAN: 1. Renal supportive measures and avoid potentially nephrotoxic agents. 2. Renally dose all medications for low GFR. 3. Outpatient Nephrology followup status post discharge strongly recommended. 4. Continue to monitor the metabolic acidosis and make adjustments concurrently. Job ID: [id number]
[2019-03-22] MEDS ORDERED: Morphine 2 MG/ML SYRINGE SLOW IVP PRN (19:36)
[2019-03-22] MEDS: Atorvastatin Calcium 20 MG TAB PO SCH (22:08)
[2019-03-23] MEDS: hydrALAZINE 20 MG/ML VIAL SLOW IVP PRN (02:04)
[2019-03-23] MEDS: Vancomycin HCl 1 GM in Premix Bag 1 BAG IVPB SCH (02:24)
[2019-03-23] MEDS: Ampicillin/Sulbactam 3 GM in Sodium Chloride 0.9% 100 ML IVPB SCH ×3 (04:36→21:05)
[2019-03-23] MEDS: Levothyroxine Sodium 50 MCG TAB PO SCH (05:59)
[2019-03-23] MEDS: Amlodipine 5 MG TAB PO SCH (09:04)
[2019-03-23] MEDS: Famotidine 20 MG TAB PO SCH (09:04)
[2019-03-23] MEDS: HYDROcodone/Acetaminophen 10/325 mg Tablet PO PRN ×2 (09:04→14:09)
[2019-03-23] MEDS: Insulin Glargine 20 UNITS in Pre-Filled Syringe 1 EACH SC SCH ×2 (09:07→21:04)
--- NOTE | 2019-03-23 11:27 | PDOC.HOSPP ---
- Subjective Encounter Date: 03/23/19 Encounter Time: 11:26 Subjective: Doing ok. No problems. She was able to get up with PT, but not ambulate. She is supposed to the the walking boot today. She does believe that she would benefit from some therapy. She lives alone. - Objective Vital Signs & Weight: Vital Signs (12 hours) Temp Pulse Resp BP BP BP Pulse Ox 03/23/19 11:22 98.4 F 80 16 151/70 H 96 03/23/19 08:00 98.2 F 83 16 93 L 03/23/19 04:00 98.5 F 93 18 163/71 H 95 03/23/19 02:04 76 203/72 H 03/23/19 00:00 98.2 F 76 18 177/74 H 93 L Weight Admit Weight 242 lb 8.136 oz Weight 242 lb 8.136 oz I&O: 03/22/19 03/23/19 03/24/19 06:59 06:59 06:59 Intake Total 1850 Balance 1850 Result Diagrams: 03/22/19 04:10 03/22/19 04:10 Additional Labs: Accuchecks 03/23/19 03/22/19 03/22/19 05:35 20:24 17:07 POC Glucose 64 L 136 H 127 H 03/22/19 13:05 POC Glucose 80 Hospitalist ROS - Medication Medications: Active Medications Generic Name Dose Route Start Last Admin Trade Name Freq PRN Reason Stop Dose Admin Hydrocodone Bitart/Acetaminophen 1 tab 03/20/19 01:17 03/23/19 09:04 [place] 10/325 PO 1 tab Q4H PRN Administration Moderate Pain (4-6) Amlodipine Besylate 5 mg 03/18/19 09:00 03/23/19 09:04 Norvasc PO 5 mg DAILY HARRY Administration Atorvastatin Calcium 20 mg 03/18/19 21:00 03/22/19 22:08 Lipitor PO 20 mg HS HARRY Administration Bisacodyl 10 mg 03/18/19 01:12 03/21/19 09:14 Dulcolax PO 10 mg DAILYPRN PRN Administration Constipation Dextrose/Water 25 gm 03/18/19 01:12 03/22/19 04:39 Dextrose 50% SLOW IVP 25 gm PRN PRN Administration Hypoglycemia Enoxaparin Sodium 30 mg 03/18/19 09:00 03/22/19 07:47 Lovenox SC 30 mg 0900 HARRY Administration Ergocalciferol 1.25 mg 03/20/19 09:00 03/20/19 11:10 Drisdol PO 1.25 mg Q7DAYS HARRY Administration Famotidine 20 mg 03/18/19 09:00 03/23/19 09:04 Pepcid PO 20 mg DAILY HARRY Administration Hydralazine HCl 10 mg 03/20/19 20:34 03/23/19 02:04 Apresoline SLOW IVP 10 mg Q4H PRN Administration SBP Greater Than 180 Ampicillin Sodium/Sulbactam 100 mls @ 200 mls/hr 03/18/19 05:00 03/23/19 04: 36 Sodium 3 gm/ Sodium Chloride IVPB 100 mls 0500,1700 HARRY Administration Vancomycin HCl 1 gm/ Device 200 mls @ 200 mls/hr 03/20/19 02:00 03/23/19 02: 24 IVPB 200 mls 0200 HARRY Administration Insulin Glargine 20 units/ 0.2 mls @ 0 mls/hr 03/22/19 09:00 03/23/19 09:07 Miscellaneous Medication SC Not Given BID [facility] Insulin Human Lispro 0 units 03/18/19 01:12 03/18/19 12:19 Humalog SC 4 unit .MODERATE SLIDING SC PRN Administration Moderate Correctional Scale Levothyroxine Sodium 50 mcg 03/19/19 06:00 03/23/19 05:59 Synthroid PO 50 mcg 0600 HARRY Administration Morphine Sulfate 2 mg 03/22/19 19:36 03/22/19 20:00 Morphine SLOW IVP 03/23/19 19:37 2 mg ONE PRN Administration Breakthrough Pain Sodium Chloride 10 ml 03/20/19 21:00 03/22/19 22:09 Flush - Normal Saline IVF 10 ml Q12HR HARRY Administration Sodium Chloride 10 ml 03/20/19 20:40 03/22/19 20:00 Flush - Normal Saline IVF 10 ml PRN PRN Administration Saline Flush - Exam General Appearance: NAD, awake alert Neck: supple, symmetric, no JVD, no thyromegaly, no lymphadenopathy, no carotid bruit Heart: RRR, no murmur, no gallops, no rubs, normal peripheral pulses Respiratory: CTAB, no wheezes, no rales, no ronchi, normal chest expansion, no tachypnea, normal percussion Gastrointestinal: soft, non-tender, non-distended, normal bowel sounds, no palpable masses, no hepatomegaly, no splenomegaly, no bruit Extremities: no cyanosis, no clubbing, no edema Extremities - other findings: LLE with wound vac and wrap. Skin: normal turgor Neurological: no focal deficits Musculoskeletal: normal tone Psychiatric: normal affect, normal behavior, A&O x 3 Hosp A/P (1) FANG (acute kidney injury) Code(s): N17.9 - ACUTE KIDNEY FAILURE, UNSPECIFIED Status: Acute (2) Acute osteomyelitis Code(s): M86.10 - OTHER ACUTE OSTEOMYELITIS, UNSPECIFIED SITE Status: Acute (3) Diabetic infection of left foot Code(s): E11.628 - TYPE 2 DIABETES MELLITUS WITH OTHER SKIN COMPLICATIONS; L08.9 - LOCAL INFECTION OF THE SKIN AND SUBCUTANEOUS TISSUE, UNSP Status: Acute (4) Leukocytosis Code(s): D72.829 - ELEVATED WHITE BLOOD CELL COUNT, UNSPECIFIED Status: Acute (5) HTN (hypertension) Code(s): I10 - ESSENTIAL (PRIMARY) HYPERTENSION Status: Chronic Qualifiers: Hypertension type: essential hypertension Qualified Code(s): I10 - Essential (primary) hypertension (6) Hypothyroidism Code(s): E03.9 - HYPOTHYROIDISM, UNSPECIFIED Status: Chronic Qualifiers: Hypothyroidism type: unspecified Qualified Code(s): E03.9 - Hypothyroidism , unspecified (7) DM (diabetes mellitus), type 2, uncontrolled Code(s): E11.65 - TYPE 2 DIABETES MELLITUS WITH HYPERGLYCEMIA Status: Chronic (8) Gout Code(s): M10.9 - GOUT, UNSPECIFIED Status: Chronic Qualifiers: Gout site: unspecified site (9) Morbid obesity Code(s): E66.01 - MORBID (SEVERE) OBESITY DUE TO EXCESS CALORIES Status: Chronic (10) PVD (peripheral vascular disease) Code(s): I73.9 - PERIPHERAL VASCULAR DISEASE, UNSPECIFIED Status: Chronic - Plan Renal function improving daily. Cultures with fairly benign orgs. Can likely go to oral meds. Will defer to Dr. Patel. Needs wound care and PT. Will get CM consult for SNF placement.
[2019-03-23] MEDS: Enoxaparin Sodium 30 MG/0.3 ML SYRINGE SC SCH (13:29)
[2019-03-23] MEDS: Atorvastatin Calcium 20 MG TAB PO SCH (19:53)
[2019-03-24] MEDS: HYDROcodone/Acetaminophen 10/325 mg Tablet PO PRN ×3 (01:09→19:59)
[2019-03-24 01:21] LABS: Vancomycin, Trough 21.4 ug/mL
[2019-03-24] MEDS: Vancomycin HCl 750 MG in Sodium Chloride 0.9% 250 ML 250 ML IVPB SCH (01:54)
[2019-03-24] MEDS: Levothyroxine Sodium 50 MCG TAB PO SCH (05:09)
[2019-03-24] MEDS: Ampicillin/Sulbactam 3 GM in Sodium Chloride 0.9% 100 ML IVPB SCH ×4 (05:09→21:46)
[2019-03-24] MEDS: hydrALAZINE 20 MG/ML VIAL SLOW IVP PRN (06:15)
--- NOTE | 2019-03-24 07:51 | PRG ---
DATE OF SERVICE: SUBJECTIVE: The patient noted without any new problem, with the following vital signs. OBJECTIVE: VITAL SIGNS: Afebrile, temperature 98.4, pulse is 80, respiratory rate 16, blood pressure of 151/70, and O2 saturation of 96%. HEENT: Unremarkable. CARDIOVASCULAR SYSTEM: First and second heart sounds are heard. RESPIRATORY SYSTEM: Clear to auscultation. DIGESTIVE SYSTEM: Revealed a benign abdomen with positive bowel sounds. EXTREMITIES: No peripheral edema. SKIN: No new gross rash. LYMPHATICS: No peripheral lymphadenopathy. LABORATORY INVESTIGATION: Showed a creatinine down to 1.71 with BUN of 25 and bicarb of 15. IMPRESSION: 1. Acute on chronic kidney disease, which seems to be improving. 2. Chronic kidney disease, stage 3 in the context of diabetic nephropathy. 3. Nephrotic range proteinuria in the context of #2 above. 4. Metabolic acidosis. 5. Hypertension. PLAN: 1. Continue current renal supportive measures. 2. Renally dose all medications for low GFR. 3. Avoid potentially nephrotoxic agents. 4. We will continue with amlodipine. We will control her blood pressure for now until renal function stabilizes, at which point, the patient will be a candidate for angiotensin receptor jil or angiotensin converting enzyme inhibitor. 5. We will start the patient on bicarb supplementation with sodium bicarbonate. Job ID: [id number]
[2019-03-24] MEDS: Sodium Bicarbonate Tab 325 MG TAB PO SCH ×2 (09:02→19:59)
[2019-03-24] MEDS: Enoxaparin Sodium 30 MG/0.3 ML SYRINGE SC SCH (09:02)
[2019-03-24] MEDS: Famotidine 20 MG TAB PO SCH (09:02)
[2019-03-24] MEDS: Amlodipine 5 MG TAB PO SCH (09:02)
[2019-03-24] MEDS: Insulin Glargine 20 UNITS in Pre-Filled Syringe 1 EACH SC SCH ×2 (09:04→20:02)
--- NOTE | 2019-03-24 15:53 | PDOC.HOSPP ---
- Subjective Subjective: Doing well. Still feels like she will need rehab. No pain. Mild feeling of abdominal bloating. - Objective Vital Signs & Weight: Vital Signs (12 hours) Temp Pulse Resp BP BP BP Pulse Ox 03/24/19 11:18 90 16 173/74 H 03/24/19 09:02 92 189/82 H 03/24/19 08:00 98.3 F 92 16 189/82 H 95 03/24/19 06:10 198/80 H Weight Admit Weight 242 lb 8.136 oz Weight 242 lb 8.136 oz I&O: 03/23/19 03/24/19 03/25/19 06:59 06:59 06:59 Intake Total 1280 Balance 1280 Result Diagrams: 03/22/19 04:10 03/22/19 04:10 Additional Labs: Accuchecks 03/24/19 03/24/19 03/23/19 13:00 05:16 19:55 POC Glucose 131 H 95 115 H 03/23/19 16:11 POC Glucose 87 Hospitalist ROS - Medication Medications: Active Medications Generic Name Dose Route Start Last Admin Trade Name Freq PRN Reason Stop Dose Admin Hydrocodone Bitart/Acetaminophen 1 tab 03/20/19 01:17 03/24/19 01:09 [place] 10/325 PO 1 tab Q4H PRN Administration Moderate Pain (4-6) Amlodipine Besylate 5 mg 03/18/19 09:00 03/24/19 09:02 Norvasc PO 5 mg DAILY HARRY Administration Atorvastatin Calcium 20 mg 03/18/19 21:00 03/23/19 19:53 Lipitor PO 20 mg HS HARRY Administration Bisacodyl 10 mg 03/18/19 01:12 03/21/19 09:14 Dulcolax PO 10 mg DAILYPRN PRN Administration Constipation Dextrose/Water 25 gm 03/18/19 01:12 03/22/19 04:39 Dextrose 50% SLOW IVP 25 gm PRN PRN Administration Hypoglycemia Enoxaparin Sodium 30 mg 03/18/19 09:00 03/24/19 09:02 Lovenox SC 30 mg 0900 HARRY Administration Ergocalciferol 1.25 mg 03/20/19 09:00 03/20/19 11:10 Drisdol PO 1.25 mg Q7DAYS HARRY Administration Famotidine 20 mg 03/18/19 09:00 03/24/19 09:02 Pepcid PO 20 mg DAILY HARRY Administration Hydralazine HCl 10 mg 03/20/19 20:34 03/24/19 06:15 Apresoline SLOW IVP 10 mg Q4H PRN Administration SBP Greater Than 180 Insulin Glargine 20 units/ 0.2 mls @ 0 mls/hr 03/22/19 09:00 03/24/19 09:04 Miscellaneous Medication SC Not Given BID HARRY Ampicillin Sodium/Sulbactam 100 mls @ 200 mls/hr 03/23/19 22:00 03/24/19 13: 03 Sodium 3 gm/ Sodium Chloride IVPB 100 mls Q8HR HARRY Administration Vancomycin HCl 750 mg/ Sodium 250 mls @ 250 mls/hr 03/24/19 02:00 03/24/19 01 :54 Chloride IVPB 250 mls 0200 HARRY Administration Insulin Human Lispro 0 units 03/18/19 01:12 03/18/19 12:19 Humalog SC 4 unit .MODERATE SLIDING SC PRN Administration Moderate Correctional Scale Levothyroxine Sodium 50 mcg 03/19/19 06:00 03/24/19 05:09 Synthroid PO 50 mcg 0600 HARRY Administration Sodium Bicarbonate 650 mg 03/24/19 09:00 03/24/19 09:02 Bicarbonate, Sodium PO 650 mg BID HARRY Administration Sodium Chloride 10 ml 03/20/19 21:00 03/24/19 09:03 Flush - Normal Saline IVF 10 ml Q12HR HARRY Administration Sodium Chloride 10 ml 03/20/19 20:40 03/22/19 20:00 Flush - Normal Saline IVF 10 ml PRN PRN Administration Saline Flush - Exam General Appearance: NAD, awake alert General - other findings: Obese. Neck: supple, symmetric, no JVD, no thyromegaly, no lymphadenopathy, no carotid bruit Heart: RRR, no murmur, no gallops, no rubs, normal peripheral pulses Respiratory: CTAB, no wheezes, no rales, no ronchi, normal chest expansion, no tachypnea, normal percussion Gastrointestinal: soft, non-tender, non-distended, normal bowel sounds, no palpable masses, no hepatomegaly, no splenomegaly, no bruit Extremities: no cyanosis, no clubbing, no edema Extremities - other findings: Left great toe with wound vac and dressing. Skin: normal turgor Psychiatric: normal affect, normal behavior, A&O x 3 Hosp A/P (1) Acute osteomyelitis Code(s): M86.10 - OTHER ACUTE OSTEOMYELITIS, UNSPECIFIED SITE Status: Acute (2) FANG (acute kidney injury) Code(s): N17.9 - ACUTE KIDNEY FAILURE, UNSPECIFIED Status: Acute (3) Diabetic infection of left foot Code(s): E11.628 - TYPE 2 DIABETES MELLITUS WITH OTHER SKIN COMPLICATIONS; L08.9 - LOCAL INFECTION OF THE SKIN AND SUBCUTANEOUS TISSUE, UNSP Status: Acute (4) Leukocytosis Code(s): D72.829 - ELEVATED WHITE BLOOD CELL COUNT, UNSPECIFIED Status: Acute (5) HTN (hypertension) Code(s): I10 - ESSENTIAL (PRIMARY) HYPERTENSION Status: Chronic Qualifiers: Hypertension type: essential hypertension Qualified Code(s): I10 - Essential (primary) hypertension (6) Hypothyroidism Code(s): E03.9 - HYPOTHYROIDISM, UNSPECIFIED Status: Chronic Qualifiers: Hypothyroidism type: unspecified Qualified Code(s): E03.9 - Hypothyroidism , unspecified (7) DM (diabetes mellitus), type 2, uncontrolled Code(s): E11.65 - TYPE 2 DIABETES MELLITUS WITH HYPERGLYCEMIA Status: Chronic (8) Gout Code(s): M10.9 - GOUT, UNSPECIFIED Status: Chronic Qualifiers: Gout site: unspecified site (9) Morbid obesity Code(s): E66.01 - MORBID (SEVERE) OBESITY DUE TO EXCESS CALORIES Status: Chronic (10) PVD (peripheral vascular disease) Code(s): I73.9 - PERIPHERAL VASCULAR DISEASE, UNSPECIFIED Status: Chronic (11) Status post amputation of toe of left foot Code(s): Z89.422 - ACQUIRED ABSENCE OF OTHER LEFT TOE(S) Status: Acute - Plan Renal function improving daily. Cultures with fairly benign orgs. Can likely go to oral meds. Will defer to Dr. Patel. Needs wound care and PT. Will get CM consult for SNF placement. Discussed with CM.
--- NOTE | 2019-03-24 19:23 | PRG ---
DATE OF SERVICE: 03/24/2019 SUBJECTIVE: The patient is seen and examined. Noted with the following vital signs. OBJECTIVE: VITAL SIGNS: Afebrile, temperature 98.3, pulse 92, respiratory rate of 16, blood pressure 189/82 to , O2 saturation of 95%. HEENT: Unremarkable. CARDIOVASCULAR SYSTEM: First and second heart sounds are heard. RESPIRATORY SYSTEM: Clear to auscultation. DIGESTIVE SYSTEM: Revealed a benign abdomen with positive bowel sounds. EXTREMITIES: No peripheral edema. SKIN: No new gross rash. LYMPHATICS: No peripheral lymphadenopathy. IMPRESSION: 1. Acute on chronic kidney disease in the context of cytokine-mediated injury seems to be improved. 2. Hypertension, suboptimally controlled. 3. Diabetes complicated with diabetic nephropathy with nephrotic range proteinuria. PLAN: 1. Adjust antihypertensive medications to optimize hemodynamics given the fact this patient is somewhat tachycardic. We will go ahead and initiate a beta blockade. 2. The patient at some point may benefit from some form of diuresis. 3. Renally dose all medications. 4. Outpatient Nephrology followup status post discharge strongly recommended. Job ID: [id number]
[2019-03-24] MEDS: Atorvastatin Calcium 20 MG TAB PO SCH (19:59)
[2019-03-25] MEDS: Vancomycin HCl 750 MG in Sodium Chloride 0.9% 250 ML 250 ML IVPB SCH (02:28)
[2019-03-25] MEDS: HYDROcodone/Acetaminophen 10/325 mg Tablet PO PRN ×3 (02:32→20:58)
[2019-03-25] MEDS: Levothyroxine Sodium 50 MCG TAB PO SCH (05:03)
[2019-03-25] MEDS: Ampicillin/Sulbactam 3 GM in Sodium Chloride 0.9% 100 ML IVPB SCH (05:03)
[2019-03-25] MEDS: Famotidine 20 MG TAB PO SCH (08:27)
[2019-03-25] MEDS: Sodium Bicarbonate Tab 325 MG TAB PO SCH ×2 (08:27→20:58)
[2019-03-25] MEDS: Enoxaparin Sodium 30 MG/0.3 ML SYRINGE SC SCH (08:27)
[2019-03-25] MEDS: Amlodipine 5 MG TAB PO SCH (08:27)
[2019-03-25] MEDS: Carvedilol 6.25 MG TAB PO SCH ×2 (08:29→16:11)
[2019-03-25] MEDS: Insulin Glargine 20 UNITS in Pre-Filled Syringe 1 EACH SC SCH ×2 (08:31→20:59)
--- NOTE | 2019-03-25 12:58 | CON ---
DATE OF CONSULTATION: 03/25/2019 CHIEF COMPLAINT: Osteomyelitis, left foot. HISTORY OF PRESENT ILLNESS: This is a 53-year-old female with a history of diabetes and obesity, who presents with a history of recent amputation of her left first toe. She now presents with inflammatory process to both right and left feet and presumed left more proximal osteomyelitis. I have been consulted for Tran catheter placement. She is not a good candidate for PICC lines. PAST MEDICAL HISTORY: Type 2 diabetes, morbid obesity, hypertension, cellulitis, and amputation. PAST SURGICAL HISTORY: Amputation. MEDICATIONS: See list. ALLERGIES: NO KNOWN DRUG ALLERGIES. SOCIAL HISTORY: She smokes. No alcohol or other drugs. REVIEW OF SYSTEMS: Ten-system review of systems is otherwise negative unless described above. PHYSICAL EXAMINATION: VITAL SIGNS: Blood pressure 166/73, pulse 71, respirations 18, and she is afebrile. HEENT: Sclerae anicteric. Oropharynx clear. NECK: No lymphadenopathy. CHEST: Clear. HEART: Regular rate. ABDOMEN: Soft, nontender. LABORATORY DATA: Last creatinine on 03/22 was 1.71. On 03/22, hemoglobin 10 and hematocrit 33. ASSESSMENT: Osteomyelitis and ongoing foot inflammation, inflammatory change. PLAN: Tran catheter placement tomorrow for long-term antibiotics. Risks, benefits, and alternatives were discussed. She gives consent, we will do this tomorrow. Job ID: [id number]
[2019-03-25] MEDS: cefTRIAXone\\ROCEPHIN 2 GM in Sodium Chloride 0.9% 100 ML IVPB SCH (13:02)
[2019-03-25 13:07] LABS: #Basophils 0.1 thou/uL (0.0-0.2); #Eosinphils 0.3 thou/uL (0.0-0.7); #Lymphocytes 1.8 thou/uL (1.20-3.40); #Monocytes 0.5 thou/uL (0.11-0.59); #Neutrophils 8.6 thou/uL (1.40-6.50); %Basophils 0.5 % (0.0-1.0); %Eosinophils 2.3 % (0.0-10.0); %Lymphocytes 16.1 % (21.0-51.0); %Monocytes 4.6 % (0.0-10.0); %Neutrophils 76.5 % (42.0-75.0); Hemoglobin 9.6 g/dL (12.0-16.0); Mean Corpuscular HGB CONC 31.6 g/dL (32.0-36.0); Mean Corpuscular Hemoglobin 28.3 pg (27.0-31.0); Mean Corpuscular Volume 89.4 fL (78.0-98.0); Mean Platelet Volume 7.1 fL (7.4-10.4); Platelet Count 455 thou/uL (130-400); RBC Distribution Width 13.5 % (11.5-14.5); White Blood Cell (WBC) Count 11.2 thou/uL (4.8-10.8)
[2019-03-25 13:18] LABS: Anion Gap 10 mmol/L (10-20); BUN (Urea Nitrogen) 20 mg/dL (9.8-20.1); Calc. Creatinine Clearance 74 mL/min (70-130); Calcium 8.1 mg/dL (7.8-10.44); Carbon Dioxide 20 mmol/L (22-29); Chloride 116 mmol/L (98-107); Estimated GFR-MDRD 36; Glucose 174 mg/dL (70-105); Potassium 4.6 mmol/L (3.5-5.1); Sodium 141 mmol/L (136-145)
--- NOTE | 2019-03-25 13:27 | PRG ---
DATE OF SERVICE: 03/25/2019 SUBJECTIVE: Mild pain in the left foot. No headaches. No shortness of breath or abdominal pain or diarrhea. No genitourinary symptoms. OBJECTIVE: VITAL SIGNS: With a T-max of 98.4, blood pressure 160/70, pulse 71, respirations 18, and O2 saturations 93. SKIN: Shows the left foot with negative pressure dressing. The surrounding skin appears normal around the amputation site. No lymphadenopathy. HEENT: Ocular movements conjugate. Sclerae are white. Pupils are equal. Conjunctivae are normal. Oral cavity normal. NECK: Supple. No jugular vein distention. LUNGS: Symmetric, clear breath sounds. HEART: S1 and S2, regular rate. No S3 or S4. ABDOMEN: Soft, not distended or tender. No ascites. No bladder distention. NEUROLOGIC: Oriented. Follows commands. No distress. LABORATORY DATA: White cell count 15.6, hemoglobin 10.6, platelets 443, with 80% neutrophils. GFR was 31 three days ago. Cultures from the site with group B Strep, Peptostreptococcus. ASSESSMENT AND DISCUSSION: Type 2 diabetes, prior right foot cellulitis, now with osteomyelitis of left first toe status post ray amputation. The patient will be transitioned to IV Rocephin until the first 2 weeks of April. Weekly labs, and Tran catheter placement. I have placed a consult for Dr. Alexandre and he will do it tomorrow. After that, to be transferred to rehab. Job ID: [id number]
[2019-03-25] MEDS: metroNIDAZOLE 500 MG TAB PO SCH ×2 (15:35→20:58)
[2019-03-25] MEDS: HumaLOG 300 UNITS/3 ML VIAL SC PRN (16:10)
--- NOTE | 2019-03-25 17:15 | PDOC.HOSPP ---
- Subjective Subjective: Doing ok. No complaints other than pain and weakness with attempts at walking. - Objective Vital Signs & Weight: Vital Signs (12 hours) Temp Pulse Resp BP BP Pulse Ox 03/25/19 16:11 154/69 H 03/25/19 15:37 157/82 H 03/25/19 14:00 182/79 H 03/25/19 08:29 166/73 H 03/25/19 08:27 71 166/73 H 03/25/19 08:00 98.0 F 71 18 166/73 H 93 L Weight Admit Weight 242 lb 8.136 oz Weight 242 lb 8.136 oz I&O: 03/24/19 03/25/19 03/26/19 06:59 06:59 06:59 Intake Total 1280 750 Balance 1280 750 Result Diagrams: 03/25/19 12:40 03/25/19 12:40 Additional Labs: Accuchecks 03/25/19 03/25/19 03/24/19 16:09 05:09 19:36 POC Glucose 224 H 142 H 215 H 03/22/19 03/21/19 12:23 12:42 POC Glucose 56 L* 61 L Hospitalist ROS - Medication Medications: Active Medications Generic Name Dose Route Start Last Admin Trade Name Freq PRN Reason Stop Dose Admin Hydrocodone Bitart/Acetaminophen 1 tab 03/20/19 01:17 03/25/19 12:38 [place] 10/325 PO 1 tab Q4H PRN Administration Moderate Pain (4-6) Amlodipine Besylate 5 mg 03/18/19 09:00 03/25/19 08:27 Norvasc PO 5 mg DAILY HARRY Administration Atorvastatin Calcium 20 mg 03/18/19 21:00 03/24/19 19:59 Lipitor PO 20 mg HS HARRY Administration Bisacodyl 10 mg 03/18/19 01:12 03/21/19 09:14 Dulcolax PO 10 mg DAILYPRN PRN Administration Constipation Carvedilol 12.5 mg 03/25/19 08:00 03/25/19 16:11 Coreg PO 12.5 mg BID-WM HARRY Administration Dextrose/Water 25 gm 03/18/19 01:12 03/22/19 04:39 Dextrose 50% SLOW IVP 25 gm PRN PRN Administration Hypoglycemia Ergocalciferol 1.25 mg 03/20/19 09:00 10/02/19 11:10 Drisdol PO 1.25 mg Q7DAYS HARRY Administration Famotidine 20 mg 03/18/19 09:00 03/25/19 08:27 Pepcid PO 20 mg DAILY HARRY Administration Hydralazine HCl 10 mg 03/20/19 20:34 03/24/19 06:15 Apresoline SLOW IVP 10 mg Q4H PRN Administration SBP Greater Than 180 Insulin Glargine 20 units/ 0.2 mls @ 0 mls/hr 03/22/19 09:00 03/25/19 08:31 Miscellaneous Medication SC 0.2 mls BID HARRY Administration Ceftriaxone Sodium 2 gm/ 100 mls @ 200 mls/hr 03/25/19 13:00 03/25/19 13:02 Sodium Chloride IVPB 100 mls Q24HR HARRY Administration Insulin Human Lispro 0 units 03/18/19 01:12 03/25/19 16:10 Humalog SC 4 unit .MODERATE SLIDING SC PRN Administration Moderate Correctional Scale Levothyroxine Sodium 50 mcg 03/19/19 06:00 03/25/19 05:03 Synthroid PO 50 mcg 0600 HARRY Administration Metronidazole 500 mg 03/25/19 15:00 03/25/19 15:35 Flagyl PO 500 mg TID HARRY Administration Sodium Bicarbonate 650 mg 03/24/19 09:00 03/25/19 08:27 Bicarbonate, Sodium PO 650 mg BID HARRY Administration Sodium Chloride 10 ml 03/20/19 21:00 03/24/19 22:12 Flush - Normal Saline IVF Not Given Q12HR HARRY Sodium Chloride 10 ml 03/20/19 20:40 03/22/19 20:00 Flush - Normal Saline IVF 10 ml PRN PRN Administration Saline Flush - Exam General Appearance: NAD, awake alert Heart: RRR, no murmur, no gallops, no rubs, normal peripheral pulses Respiratory: CTAB, no wheezes, no rales, no ronchi, normal chest expansion, no tachypnea, normal percussion Gastrointestinal: soft, non-tender, non-distended, normal bowel sounds, no palpable masses, no hepatomegaly, no splenomegaly, no bruit Extremities: no cyanosis, no clubbing, no edema Extremities - other findings: Left foot with wound vac dressing. Musculoskeletal: normal tone, normal strength Psychiatric: normal affect, normal behavior, A&O x 3 Hosp A/P (1) Acute osteomyelitis Code(s): M86.10 - OTHER ACUTE OSTEOMYELITIS, UNSPECIFIED SITE Status: Acute (2) FANG (acute kidney injury) Code(s): N17.9 - ACUTE KIDNEY FAILURE, UNSPECIFIED Status: Acute (3) Diabetic infection of left foot Code(s): E11.628 - TYPE 2 DIABETES MELLITUS WITH OTHER SKIN COMPLICATIONS; L08.9 - LOCAL INFECTION OF THE SKIN AND SUBCUTANEOUS TISSUE, UNSP Status: Acute (4) Leukocytosis Code(s): D72.829 - ELEVATED WHITE BLOOD CELL COUNT, UNSPECIFIED Status: Acute (5) HTN (hypertension) Code(s): I10 - ESSENTIAL (PRIMARY) HYPERTENSION Status: Chronic Qualifiers: Hypertension type: essential hypertension Qualified Code(s): I10 - Essential (primary) hypertension (6) Hypothyroidism Code(s): E03.9 - HYPOTHYROIDISM, UNSPECIFIED Status: Chronic Qualifiers: Hypothyroidism type: unspecified Qualified Code(s): E03.9 - Hypothyroidism , unspecified (7) DM (diabetes mellitus), type 2, uncontrolled Code(s): E11.65 - TYPE 2 DIABETES MELLITUS WITH HYPERGLYCEMIA Status: Chronic (8) Gout Code(s): M10.9 - GOUT, UNSPECIFIED Status: Chronic Qualifiers: Gout site: unspecified site (9) Morbid obesity Code(s): E66.01 - MORBID (SEVERE) OBESITY DUE TO EXCESS CALORIES Status: Chronic (10) PVD (peripheral vascular disease) Code(s): I73.9 - PERIPHERAL VASCULAR DISEASE, UNSPECIFIED Status: Chronic (11) Status post amputation of toe of left foot Code(s): Z89.422 - ACQUIRED ABSENCE OF OTHER LEFT TOE(S) Status: Acute - Plan Renal function improving daily. Will get Tran for IV abx per Dr. Patel. Needs wound care and PT. Will get CM consult for SNF placement. Discussed with CM.
--- NOTE | 2019-03-25 18:23 | PRG ---
DATE OF SERVICE: 03/25/2019 SUBJECTIVE: The patient is seen and examined. Noted with the following vital signs. OBJECTIVE: VITAL SIGNS: Afebrile, blood pressure 154/69, pulse of 71, respiratory rate of 18, O2 saturation 96%. HEENT: Unremarkable. CARDIOVASCULAR SYSTEM: First and second heart sounds are heard. RESPIRATORY: Clear to auscultation. DIGESTIVE SYSTEM: Revealed a benign abdomen. EXTREMITIES: Show improved peripheral edema. LABORATORY INVESTIGATION: Showed a creatinine down to 1.5. IMPRESSION: 1. Acute on chronic kidney disease, which seems to be much improved. 2. Chronic kidney disease, stage 3 in the context of diabetic nephropathy. 3. Hypertension, much improved. PLAN: 1. Continue current management. 2. Renally dose all medications. 3. Outpatient Nephrology followup status was discussed and strongly recommended given the significant proteinuria. Job ID: [id number]
[2019-03-25] MEDS: Atorvastatin Calcium 20 MG TAB PO SCH (20:58)
[2019-03-26] MEDS: HYDROcodone/Acetaminophen 10/325 mg Tablet PO PRN ×3 (00:53→12:44)
[2019-03-26] MEDS: Carvedilol 6.25 MG TAB PO SCH ×2 (05:09→19:06)
[2019-03-26] MEDS: Levothyroxine Sodium 50 MCG TAB PO SCH (05:09)
[2019-03-26] MEDS: Insulin Glargine 20 UNITS in Pre-Filled Syringe 1 EACH SC SCH ×2 (09:00→20:26)
[2019-03-26] MEDS: Famotidine 20 MG TAB PO SCH (09:00)
[2019-03-26] MEDS: Amlodipine 5 MG TAB PO SCH (09:00)
[2019-03-26] MEDS: metroNIDAZOLE 500 MG TAB PO SCH ×3 (09:00→20:26)
[2019-03-26] MEDS: Sodium Bicarbonate Tab 325 MG TAB PO SCH ×2 (09:00→20:26)
[2019-03-26] MEDS ORDERED: Lidocaine 2% PF 5 ML VIAL ONE (09:06)
[2019-03-26] MEDS ORDERED: Bupivacaine/Epinephrine 0.25% 30 ML VIAL ONE (09:06)
[2019-03-26] MEDS ORDERED: Dextrose 50% Abboject 50 ML SYRINGE ONE (09:09)
[2019-03-26] MEDS ORDERED: PROPOFOL 40 ML ONE (09:10)
[2019-03-26] MEDS ORDERED: Fentanyl 100 MCG/2 ML VIAL ONE (09:10)
[2019-03-26] MEDS ORDERED: Promethazine HCl 25 MG/ML VIAL IM PRN (10:25)
[2019-03-26] MEDS ORDERED: Ondansetron HCl/PF 4 MG/2 ML Vial IVP PRN (10:25)
[2019-03-26] MEDS ORDERED: Promethazine HCl 25 MG/ML VIAL SLOW IVP PRN (10:25)
[2019-03-26] MEDS ORDERED: diphenhydrAMINE 50 MG/ML VIAL ONE (11:48)
[2019-03-26] MEDS ORDERED: PROPOFOL 200 MG/20 ML VIAL ONE (11:48)
[2019-03-26] MEDS ORDERED: ePHEDrine 50 MG/ML VIAL ONE (11:48)
--- NOTE | 2019-03-26 12:05 | RAD ---
PORTABLE CHEST ONE VIEW: 03/26/2019 10:15 a.m. HISTORY: Tran catheter placement. FINDINGS: There has been interval placement of a right internal jugular vascular catheter with the tip in the p rojection of the junction of the brachiocephalic and the SVC. No pneumothoraces is seen. The heart si ze is normal. The lungs are clear. POS: OFF
[2019-03-26] MEDS: hydrALAZINE 20 MG/ML VIAL SLOW IVP PRN (12:40)
[2019-03-26] MEDS: cefTRIAXone\\ROCEPHIN 2 GM in Sodium Chloride 0.9% 100 ML IVPB SCH (13:00)
--- NOTE | 2019-03-26 16:17 | PDOC.HOSPP ---
- Subjective Subjective: Doing well. Tolerated placement of Tran well. - Objective Vital Signs & Weight: Vital Signs (12 hours) Temp Pulse Resp BP BP BP Pulse Ox 03/26/19 12:49 189/80 H 03/26/19 12:40 57 L 224/84 H 03/26/19 12:39 204/84 H 03/26/19 12:00 97.8 F 72 16 183/74 H 94 L 03/26/19 11:30 97.8 F 68 16 178/75 H 94 L 03/26/19 11:00 97.5 F L 66 16 179/77 H 98 03/26/19 09:00 57 L 03/26/19 08:00 98.1 F 57 L 16 160/71 H 93 L 03/26/19 06:15 61 16 150/67 H 97 Weight Admit Weight 242 lb 8.136 oz Weight 242 lb 8.136 oz I&O: 03/25/19 03/26/19 03/27/19 06:59 06:59 06:59 Intake Total 750 500 Balance 750 500 Result Diagrams: 03/25/19 12:40 03/25/19 12:40 Additional Labs: Accuchecks 03/26/19 03/26/19 03/25/19 11:12 04:58 20:07 POC Glucose 82 76 142 H 03/25/19 16:09 POC Glucose 224 H Hospitalist ROS - Medication Medications: Active Medications Generic Name Dose Route Start Last Admin Trade Name Freq PRN Reason Stop Dose Admin Acetaminophen 650 mg 03/18/19 01:12 03/25/19 23:05 Tylenol PO 650 mg Q4H PRN Administration Headache/Fever/Mild Pain (1-3) Hydrocodone Bitart/Acetaminophen 1 tab 03/20/19 01:17 03/26/19 12:44 [place] 10/325 PO 1 tab Q4H PRN Administration Moderate Pain (4-6) Amlodipine Besylate 5 mg 03/18/19 09:00 03/26/19 09:00 Norvasc PO Not Given DAILY HARRY Atorvastatin Calcium 20 mg 03/18/19 21:00 03/25/19 20:58 Lipitor PO 20 mg HS HARRY Administration Bisacodyl 10 mg 03/18/19 01:12 03/21/19 09:14 Dulcolax PO 10 mg DAILYPRN PRN Administration Constipation Carvedilol 12.5 mg 03/25/19 08:00 03/26/19 05:09 Coreg PO 12.5 mg BID-WM HARRY Administration Dextrose/Water 25 gm 03/18/19 01:12 03/22/19 04:39 Dextrose 50% SLOW IVP 25 gm PRN PRN Administration Hypoglycemia Ergocalciferol 1.25 mg 03/20/19 09:00 03/20/19 11:10 Drisdol PO 1.25 mg Q7DAYS HARRY Administration Famotidine 20 mg 03/18/19 09:00 03/26/19 09:00 Pepcid PO Not Given DAILY HARRY Hydralazine HCl 10 mg 03/20/19 20:34 03/26/19 12:40 Apresoline SLOW IVP 10 mg Q4H PRN Administration SBP Greater Than 180 Insulin Glargine 20 units/ 0.2 mls @ 0 mls/hr 03/22/19 09:00 03/26/19 09:00 Miscellaneous Medication SC Not Given BID HARRY Ceftriaxone Sodium 2 gm/ 100 mls @ 200 mls/hr 03/25/19 13:00 03/26/19 13:00 Sodium Chloride IVPB 100 mls Q24HR HARRY Administration Insulin Human Lispro 0 units 03/18/19 01:12 03/25/19 16:10 Humalog SC 4 unit .MODERATE SLIDING SC PRN Administration Moderate Correctional Scale Levothyroxine Sodium 50 mcg 03/19/19 06:00 03/26/19 05:09 Synthroid PO 50 mcg 0600 HARRY Administration Metronidazole 500 mg 03/25/19 15:00 03/26/19 15:09 Flagyl PO 500 mg TID HARRY Administration Sodium Bicarbonate 650 mg 03/24/19 09:00 03/26/19 09:00 Bicarbonate, Sodium PO Not Given BID HARRY Sodium Chloride 10 ml 03/20/19 21:00 03/26/19 09:00 Flush - Normal Saline IVF Not Given Q12HR HARRY Sodium Chloride 10 ml 03/20/19 20:40 03/22/19 20:00 Flush - Normal Saline IVF 10 ml PRN PRN Administration Saline Flush - Exam General Appearance: NAD, awake alert Heart: RRR, no murmur, no gallops, no rubs, normal peripheral pulses Respiratory: CTAB, no wheezes, no rales, no ronchi, normal chest expansion, no tachypnea, normal percussion Gastrointestinal: soft, non-tender, non-distended, normal bowel sounds, no palpable masses, no hepatomegaly, no splenomegaly, no bruit Skin: normal turgor Neurological: cranial nerve grossly intact, normal sensation to touch, no weakness, no focal deficits, no new deficit Musculoskeletal: normal tone Musculoskeletal - other findings: Left great toe amputation. Wound vac Psychiatric: normal affect, normal behavior, A&O x 3 Hosp A/P (1) Acute osteomyelitis Code(s): M86.10 - OTHER ACUTE OSTEOMYELITIS, UNSPECIFIED SITE Status: Acute (2) FANG (acute kidney injury) Code(s): N17.9 - ACUTE KIDNEY FAILURE, UNSPECIFIED Status: Acute (3) Diabetic infection of left foot Code(s): E11.628 - TYPE 2 DIABETES MELLITUS WITH OTHER SKIN COMPLICATIONS; L08.9 - LOCAL INFECTION OF THE SKIN AND SUBCUTANEOUS TISSUE, UNSP Status: Acute (4) Leukocytosis Code(s): D72.829 - ELEVATED WHITE BLOOD CELL COUNT, UNSPECIFIED Status: Acute (5) HTN (hypertension) Code(s): I10 - ESSENTIAL (PRIMARY) HYPERTENSION Status: Chronic Qualifiers: Hypertension type: essential hypertension Qualified Code(s): I10 - Essential (primary) hypertension (6) Hypothyroidism Code(s): E03.9 - HYPOTHYROIDISM, UNSPECIFIED Status: Chronic Qualifiers: Hypothyroidism type: unspecified Qualified Code(s): E03.9 - Hypothyroidism , unspecified (7) DM (diabetes mellitus), type 2, uncontrolled Code(s): E11.65 - TYPE 2 DIABETES MELLITUS WITH HYPERGLYCEMIA Status: Chronic (8) Gout Code(s): M10.9 - GOUT, UNSPECIFIED Status: Chronic Qualifiers: Gout site: unspecified site (9) Morbid obesity Code(s): E66.01 - MORBID (SEVERE) OBESITY DUE TO EXCESS CALORIES Status: Chronic (10) PVD (peripheral vascular disease) Code(s): I73.9 - PERIPHERAL VASCULAR DISEASE, UNSPECIFIED Status: Chronic (11) Status post amputation of toe of left foot Code(s): Z89.422 - ACQUIRED ABSENCE OF OTHER LEFT TOE(S) Status: Acute - Plan Renal function improving daily. Tran for IV abx Needs wound care and PT. Will get CM consult for SNF placement. Discussed with CM.
--- NOTE | 2019-03-26 16:43 | OP ---
DATE OF PROCEDURE: 03/26/2019 PREOPERATIVE DIAGNOSIS: Osteomyelitis, foot. POSTOPERATIVE DIAGNOSIS: Osteomyelitis, foot. PROCEDURE PERFORMED: Tunneled central line was with subcutaneous tunneled central line (Tran catheter). ANESTHESIA: TIVA, local. ESTIMATED BLOOD LOSS: Minimal. COMPLICATIONS: None. FINDINGS: Tip of the catheter was at the atriocaval junction on fluoro. DESCRIPTION OF PROCEDURE: The patient was taken to the operating room and laid supine on the operating room table. After sedation was obtained, bilateral neck and chest were prepped and draped in a sterile fashion. Local anesthetic was infiltrated over the IJ vein. IJ vein was cannulated using a 22-gauge finder needle followed by a Seldinger needle. Wire was passed into superior vena cava under fluoro guidance. A small christina was made at the wire entrance site. A separate incision was made in the right upper chest. The Tran catheter was tunneled from the inferior to superior incision, it had been cut for proper fit. The introducer sheath was placed over the wire into the superior vena cava. The dilator and wire were removed. The end of the catheter was sewn into the sheath. The sheath was peeled away. The tip of the catheter was at the atriocaval junction. The exit site on the lower chest was sutured using a nylon suture. 4-0 Monocryl was used to close the neck incision. Incisions were covered with Super glue. Sterile dressings were placed. The Tran flushes and draws blood without difficulties, flushed with a heparin flush. The patient was sent to Recovery in stable condition. All instrument counts, needle counts, and lap counts were correct. Job ID: [id number]
[2019-03-26] MEDS: Atorvastatin Calcium 20 MG TAB PO SCH (20:26)
--- NOTE | 2019-03-26 22:33 | PRG ---
DATE OF SERVICE: 03/26/2019 SUBJECTIVE: The patient was seen and examined. OBJECTIVE: VITAL SIGNS: Afebrile, temperature 98.1, pulse 79, respiratory rate of 16, O2 saturation 94% with blood pressure of 160/70. HEENT: Unremarkable. CARDIOVASCULAR SYSTEM: First and second heart sounds were heard. RESPIRATORY SYSTEM: Clear to auscultation. DIGESTIVE SYSTEM: Revealed a benign abdomen. EXTREMITIES: Showed improved peripheral edema. SKIN: No new gross rash. LYMPHATICS: No peripheral lymphadenopathy. LABORATORY DATA: Showed no chemistry was done today. IMPRESSION: Acute on chronic kidney disease, much improved status post treatment due to infection. PLAN: 1. We will continue on current renal supportive measures. 2. Outpatient Nephrology followup status with discharge strongly recommended. Job ID: [id number]
--- NOTE | 2019-03-27 00:55 | CON ---
DATE OF CONSULTATION: SUBJECTIVE: The patient was seen at bedside with wound care. The patient is having some pain in the foot. The patient having no systemic complaints. OBJECTIVE: Examination of the wound VAC shows it to be nonproductive. After taking the wound VAC down, there is some ischemic appearance to the wound as well as some nonviable appearing tissues surrounding the wound and in the center of the wound. The dorsal aspect of the foot also has a dusky appearance. ASSESSMENT/PLAN: 1. A VeraFlo VAC system will be applied today. The wound will be re-examined on . 2. I discussed the patient with the rounding physician and discussed getting a vascular consult and he is going to do this. Job ID: [id number]
[2019-03-27] MEDS: HYDROcodone/Acetaminophen 10/325 mg Tablet PO PRN ×3 (02:34→21:40)
[2019-03-27] MEDS: hydrALAZINE 20 MG/ML VIAL SLOW IVP PRN (04:26)
[2019-03-27] MEDS: Levothyroxine Sodium 50 MCG TAB PO SCH (05:44)
[2019-03-27] MEDS: Carvedilol 6.25 MG TAB PO SCH ×2 (09:36→16:46)
[2019-03-27] MEDS: Amlodipine 5 MG TAB PO SCH (09:37)
[2019-03-27] MEDS: metroNIDAZOLE 500 MG TAB PO SCH ×3 (09:37→21:41)
[2019-03-27] MEDS: Sodium Bicarbonate Tab 325 MG TAB PO SCH ×2 (09:40→21:40)
[2019-03-27] MEDS: Insulin Glargine 20 UNITS in Pre-Filled Syringe 1 EACH SC SCH ×2 (09:41→21:39)
[2019-03-27] MEDS: Famotidine 20 MG TAB PO SCH (09:41)
[2019-03-27] MEDS: Bisacodyl 5 MG TAB PO PRN (09:42)
[2019-03-27] MEDS: Ergocalciferol 1.25 MG(50,000 UNITS) CAP PO SCH (09:50)
--- NOTE | 2019-03-27 11:51 | PQF ---
[facility]QUINT[facility] [id number] CLINICAL DOCUMENTATION IMPROVEMENT CLARIFICATION FORM: ICD-10 Updated PLEASE DO AN ADDENDUM TO THE PROGRESS NOTE WITH ANY DOCUMENTATION UPDATES OR ADDITIONS AND CARRY THROUGH TO DC SUMMARY. THANK YOU. DATE: 03/27/2019, 04/02/19 ATTN:DR. Tete ROGERS, DR. Lele CHENG Please exercise your independent, professional judgment in responding to the clarification form. Clinical indicators are provided on the bottom of this form for your review. Please check appropriate box(s): [ ] Gangrene [ x ] Gas Gangrene [ ] Other [ ] Unable to determine In addition, please specify: Present on Admission (POA): [ x] Yes [ ] No [ ] Unable to determine x For continuity of documentation, please document condition throughout progress notes and discharge summary. Thank You. CLINICAL INDICATORS - SIGNS / SYMPTOMS/ LABS are present in the medical record: 03/19 MRI IMPRESSION: PROMINENT SOFT TISSUE GAS PRODUCING INFECTION INVOLVING THE GREAT TOE WELL THE MEDIAL ASPECT OF THE FOREFOOT. 03/19 TOE TISSUE CULTURE- BACTERIAL: STREPTOCOCCUS AGALACTIAE Gp. B; ANAEROBIC : PEPTOSTREPTOCOCCUS ASACCHAROLYTICUS 03/19 TOE BONE CULTURE- BACTERIAL: STREPTOCOCCUS AGALACTIAE Gp; ANAEROBIC : PEPTOSTREPTOCOCCUS ASACCHAROLYTICUS RISK: DIABETIC INFECTION LEFT FOOT, OSTEOMYELITIS (ATERNO/H&P) 03/18 LEFT GREAT TOE SOFT TISSUE GAS ( DONNIE/ OPERATIVE NOTE) 03/19 SEPSIS, PVD (JAGADEESHAN/PN ) 03/18 TREATMENTS: CARDIOVASCULAR CONSULT ORDERED (03/27) AMPUTATION LEFT GREAT TOE ( 03/19) CULTURES/BONE AND TISSUE( 03/19) IV ANTIBIOTICS ( AMPICILLIN 03/18-03/25) IV ANTIBIOTICS ( VANCOMYCIN 03/17-PRESENT) THANK YOU! NOE (This form is maintained as a part of the permanent medical record) 2014 [email or web address] All Rights Reserved JOSEPHINE [email or web address] [phone] ELMA
[2019-03-27] MEDS: cefTRIAXone\\ROCEPHIN 2 GM in Sodium Chloride 0.9% 100 ML IVPB SCH (13:14)
--- NOTE | 2019-03-27 17:37 | PDOC.HOSPP ---
- Subjective Subjective: Doing well. No complaints except pain when she trying to get up and around. - Objective Vital Signs & Weight: Vital Signs (12 hours) Temp Pulse Pulse Resp BP BP BP 03/27/19 16:00 70 18 03/27/19 12:00 98.6 F 72 18 03/27/19 09:37 75 03/27/19 09:36 160/70 H 03/27/19 08:33 78 178/79 H 164/72 H 03/27/19 08:00 03/27/19 07:49 98.6 F 75 18 03/27/19 05:40 73 16 BP BP Pulse Ox 03/27/19 16:00 140/59 L 03/27/19 12:00 154/65 H 94 L 03/27/19 09:37 03/27/19 09:36 03/27/19 08:33 03/27/19 08:00 94 L 03/27/19 07:49 171/73 H 94 L 03/27/19 05:40 152/68 H Weight Admit Weight 242 lb 8.136 oz Weight 242 lb 8.136 oz I&O: 03/26/19 03/27/19 03/28/19 06:59 06:59 06:59 Intake Total 500 1350 Balance 500 1350 Result Diagrams: 03/25/19 12:40 03/25/19 12:40 Additional Labs: Accuchecks 03/27/19 03/27/19 03/27/19 16:26 11:00 05:42 POC Glucose 148 H 103 84 03/26/19 20:07 POC Glucose 183 H Hospitalist ROS - Medication Medications: Active Medications Generic Name Dose Route Start Last Admin Trade Name Freq PRN Reason Stop Dose Admin Acetaminophen 650 mg 03/18/19 01:12 03/25/19 23:05 Tylenol PO 650 mg Q4H PRN Administration Headache/Fever/Mild Pain (1-3) Hydrocodone Bitart/Acetaminophen 1 tab 03/20/19 01:17 03/27/19 13:14 [place] 10/325 PO 1 tab Q4H PRN Administration Moderate Pain (4-6) Amlodipine Besylate 5 mg 03/18/19 09:00 03/27/19 09:37 Norvasc PO 5 mg DAILY HARRY Administration Atorvastatin Calcium 20 mg 03/18/19 21:00 03/26/19 20:26 Lipitor PO 20 mg HS HARRY Administration Bisacodyl 10 mg 03/18/19 01:12 03/27/19 09:42 Dulcolax PO 10 mg DAILYPRN PRN Administration Constipation Carvedilol 12.5 mg 03/25/19 08:00 03/27/19 16:46 Coreg PO 12.5 mg BID-WM HARRY Administration Dextrose/Water 25 gm 03/18/19 01:12 03/22/19 04:39 Dextrose 50% SLOW IVP 25 gm PRN PRN Administration Hypoglycemia Ergocalciferol 1.25 mg 03/20/19 09:00 03/27/19 09:50 Drisdol PO 1.25 mg Q7DAYS HARRY Administration Famotidine 20 mg 03/18/19 09:00 03/27/19 09:41 Pepcid PO 20 mg DAILY HARRY Administration Hydralazine HCl 10 mg 03/20/19 20:34 03/27/19 04:26 Apresoline SLOW IVP 10 mg Q4H PRN Administration SBP Greater Than 180 Insulin Glargine 20 units/ 0.2 mls @ 0 mls/hr 03/22/19 09:00 03/27/19 09:41 Miscellaneous Medication SC 0.2 mls BID HARRY Administration Ceftriaxone Sodium 2 gm/ 100 mls @ 200 mls/hr 03/25/19 13:00 03/27/19 13:14 Sodium Chloride IVPB 100 mls Q24HR HARRY Administration Insulin Human Lispro 0 units 03/18/19 01:12 03/25/19 16:10 Humalog SC 4 unit .MODERATE SLIDING SC PRN Administration Moderate Correctional Scale Levothyroxine Sodium 50 mcg 03/19/19 06:00 03/27/19 05:44 Synthroid PO 50 mcg 0600 HARRY Administration Metronidazole 500 mg 03/25/19 15:00 03/27/19 16:10 Flagyl PO 500 mg TID HARRY Administration Sodium Bicarbonate 650 mg 03/24/19 09:00 03/27/19 09:40 Bicarbonate, Sodium PO 650 mg BID HARRY Administration Sodium Chloride 10 ml 03/20/19 21:00 03/27/19 09:41 Flush - Normal Saline IVF 10 ml Q12HR HARRY Administration Sodium Chloride 10 ml 03/20/19 20:40 03/22/19 20:00 Flush - Normal Saline IVF 10 ml PRN PRN Administration Saline Flush - Exam General Appearance: NAD, awake alert Heart: RRR, no murmur, no gallops, no rubs, normal peripheral pulses Respiratory: CTAB, no wheezes, no rales, no ronchi, normal chest expansion, no tachypnea, normal percussion Gastrointestinal: soft, non-tender, non-distended, normal bowel sounds, no palpable masses, no hepatomegaly, no splenomegaly, no bruit Skin: normal turgor, no lesions, no rashes Musculoskeletal: normal tone Psychiatric: normal affect, normal behavior, A&O x 3 Hosp A/P (1) Acute osteomyelitis Code(s): M86.10 - OTHER ACUTE OSTEOMYELITIS, UNSPECIFIED SITE Status: Acute (2) FANG (acute kidney injury) Code(s): N17.9 - ACUTE KIDNEY FAILURE, UNSPECIFIED Status: Acute (3) Diabetic infection of left foot Code(s): E11.628 - TYPE 2 DIABETES MELLITUS WITH OTHER SKIN COMPLICATIONS; L08.9 - LOCAL INFECTION OF THE SKIN AND SUBCUTANEOUS TISSUE, UNSP Status: Acute (4) Leukocytosis Code(s): D72.829 - ELEVATED WHITE BLOOD CELL COUNT, UNSPECIFIED Status: Acute (5) HTN (hypertension) Code(s): I10 - ESSENTIAL (PRIMARY) HYPERTENSION Status: Chronic Qualifiers: Hypertension type: essential hypertension Qualified Code(s): I10 - Essential (primary) hypertension (6) Hypothyroidism Code(s): E03.9 - HYPOTHYROIDISM, UNSPECIFIED Status: Chronic Qualifiers: Hypothyroidism type: unspecified Qualified Code(s): E03.9 - Hypothyroidism , unspecified (7) DM (diabetes mellitus), type 2, uncontrolled Code(s): E11.65 - TYPE 2 DIABETES MELLITUS WITH HYPERGLYCEMIA Status: Chronic (8) Gout Code(s): M10.9 - GOUT, UNSPECIFIED Status: Chronic Qualifiers: Gout site: unspecified site (9) Morbid obesity Code(s): E66.01 - MORBID (SEVERE) OBESITY DUE TO EXCESS CALORIES Status: Chronic (10) PVD (peripheral vascular disease) Code(s): I73.9 - PERIPHERAL VASCULAR DISEASE, UNSPECIFIED Status: Chronic (11) Status post amputation of toe of left foot Code(s): Z89.422 - ACQUIRED ABSENCE OF OTHER LEFT TOE(S) Status: Acute - Plan Renal function improving daily. Tran for IV abx Needs wound care and PT. Will get CM consult for SNF placement. Discussed with CM. Podiatry was speaking to the medical student and recommended Vasc Surg eval. YEVGENIY Hdz.
--- NOTE | 2019-03-27 20:42 | PRG ---
DATE OF SERVICE: 03/27/2019 SUBJECTIVE: The patient is seen and examined. Noted with the following vital signs. OBJECTIVE: VITAL SIGNS: Afebrile, temperature 98, pulse 65, respiratory rate of 18, O2 saturations are 96%, and blood pressure 164/69. HEENT: Unremarkable. CARDIOVASCULAR SYSTEM: First and second heart sounds were heard. RESPIRATORY SYSTEM: Clear to auscultation. DIGESTIVE SYSTEM: Revealed a benign abdomen. EXTREMITIES: No peripheral edema. SKIN: No new gross rash. LYMPHATICS: No peripheral lymphadenopathy. IMPRESSION: 1. Acute on chronic kidney disease which seems to have improved. 2. Diabetes mellitus with diabetic nephropathy. 3. Nephrotic range proteinuria. PLAN: 1. Continue current renal supportive measures. 2. Outpatient Nephrology followup status post discharge strongly recommended. Job ID: [id number]
[2019-03-27] MEDS: Atorvastatin Calcium 20 MG TAB PO SCH (21:41)
[2019-03-28] MEDS: hydrALAZINE 20 MG/ML VIAL SLOW IVP PRN (00:23)
[2019-03-28] MEDS: Levothyroxine Sodium 50 MCG TAB PO SCH (06:50)
[2019-03-28] MEDS: metroNIDAZOLE 500 MG TAB PO SCH ×2 (08:30→14:17)
[2019-03-28] MEDS: Amlodipine 5 MG TAB PO SCH (08:30)
[2019-03-28] MEDS: Sodium Bicarbonate Tab 325 MG TAB PO SCH (08:30)
[2019-03-28] MEDS: Carvedilol 6.25 MG TAB PO SCH ×2 (08:30→16:25)
[2019-03-28] MEDS: Famotidine 20 MG TAB PO SCH (08:30)
[2019-03-28] MEDS: Insulin Glargine 20 UNITS in Pre-Filled Syringe 1 EACH SC SCH (09:16)
[2019-03-28] MEDS: HYDROcodone/Acetaminophen 10/325 mg Tablet PO PRN ×2 (11:15→15:30)
[2019-03-28] MEDS: cefTRIAXone\\ROCEPHIN 2 GM in Sodium Chloride 0.9% 100 ML IVPB SCH (12:25)
[2019-03-28 16:18] VITALS: TEMP 98.8
[2019-03-28 16:26] VITALS: BP 163/70
--- NOTE | 2019-03-29 07:29 | PRG ---
DATE OF SERVICE: 03/28/2019 SUBJECTIVE: The patient was visited at noon and was sleeping comfortably in bed. The patient has now had the VeraFlo VAC on for over 24 hours. The patient states that she is having some pain, but it is reduced. OBJECTIVE: The VeraFlo is intact. Production seen in the holding tank, which is to be expected. The bandages were taken down and improved. Granular tissue seen in the wound. There are less necrotic tissues present. ASSESSMENT AND PLAN: 1. The patient from a podiatry standpoint is cleared to go to a longterm facility with continued wound VAC therapy and IV antibiotic therapy. 2. Vascular consult was obtained and I will read and evaluate consult note. 3. The patient will continue with the wound VAC and IV antibiotic therapy and will follow up in approximately 1 week for reexamination in the office. Job ID: [id number]
--- NOTE | 2019-03-30 01:29 | PQF ---
[employer] Crystal Reports Winform Viewer EDGARD,MAGDY BERG MD [id number] CLINICAL DOCUMENTATION CLARIFICATION FORM: POST DISCHARGE Addendum to original discharge summary date: ____ Late entry note date: __ DATE: 03/28/19 ATTN: Magdy Rodgers Please exercise your independent, professional judgment in responding to the clarification form. Clinical indicators are provided on the bottom of this form for your review Can you please further specify if Sepsis is ruled in or ruled out? Sepsis [ ] Ruled in diagnosis [ ] Continue to treat [ ] Resolved [x ] Ruled out diagnosis [ ] Cannot rule out diagnosis [ ] Other diagnosis please specify [ ] Unable to determine In addition, please specify: Present on Admission (POA): [ ] Yes [ ] No [ ] Unable to determine For continuity of documentation, please document condition throughout progress notes and discharge summary. Thank You. CLINICAL INDICATORS - SIGNS / SYMPTOMS / LABS Hospitalist H and P 03/17 pg.1- Presenting to ED for L great toe infected diabetic ulcer Hospitalist H and P 03/17 pg.4- Leukocytosis likely secondary to acute osteomyelitis Hospitalist PN Dr. Lynn 03/19 pg.5- Sepsis Hospitalist PN Dr. Lynn 03/19 pg.5- Severe Sepsis Microbiology 03/19- Bacterial culture -final Streptococcus agalactiae group B RISK FACTORS Diabetic foot infection- H and P pg.4 Acute renal failure- Hospitalist H and P pg.4 Protein calorie malnutrition-Hospitalist PN Dr. Lynn 03/19 pg.5 TREATMENTS Infectious Consult- Dr. Patel 03/20 Toe Amputation- Op Report 03/19 pg.1 IV Fluids- MAR Bacterial Culture- Microbiology 03/19 IV Antibiotics- MAR Foot Xray 03/17 (This form is maintained as a part of the permanent medical record) 2014 [employer]. All Rights Reserved [email or web address] [not provided] [email or web address]
== END 2019-03-28 16:30 | DRG 239 ==
LOC: ERS 22:18 → ONC 23:50
PROVIDERS: ADMIT Internal Medicine; ATTEND Internal Medicine
PROC: 0Y6N0Z9 Detachment at Left Foot, Partial 1st Ray, Open Approach (ICD-10-PCS; principal; 2019-03-19)
PROC: 0JH63XZ Insertion of Tunneled Vascular Access Device into Chest Subcutaneous Tissue and Fascia, Percutaneous Approach (ICD-10-PCS; 2019-03-26)
PROC: 02HV33Z Insertion of Infusion Device into Superior Vena Cava, Percutaneous Approach (ICD-10-PCS; 2019-03-26)
PROC: B518ZZA Fluoroscopy of Superior Vena Cava, Guidance (ICD-10-PCS; 2019-03-26)
DX: E11.52 Type 2 diabetes mellitus with diabetic peripheral angiopathy with gangrene (principal); A48.0 Gas gangrene; M86.172 Other acute osteomyelitis, left ankle and foot; E87.1 Hypo-osmolality and hyponatremia; E87.2 Acidosis; E46 Unspecified protein-calorie malnutrition; Z68.41 Body mass index [BMI] 40.0-44.9, adult; N17.9 Acute kidney failure, unspecified; E11.69 Type 2 diabetes mellitus with other specified complication; M10.9 Gout, unspecified; E11.65 Type 2 diabetes mellitus with hyperglycemia; E03.9 Hypothyroidism, unspecified; E66.01 Morbid (severe) obesity due to excess calories; E11.22 Type 2 diabetes mellitus with diabetic chronic kidney disease; I12.9 Hypertensive chronic kidney disease with stage 1 through stage 4 chronic kidney disease, or unspecified chronic kidney disease; D63.1 Anemia in chronic kidney disease; E55.9 Vitamin D deficiency, unspecified; E83.39 Other disorders of phosphorus metabolism; N18.3 Chronic kidney disease, stage 3 (moderate); E11.621 Type 2 diabetes mellitus with foot ulcer; L97.529 Non-pressure chronic ulcer of other part of left foot with unspecified severity; E11.51 Type 2 diabetes mellitus with diabetic peripheral angiopathy without gangrene; F17.200 Nicotine dependence, unspecified, uncomplicated; Z79.899 Other long term (current) drug therapy; Z79.4 Long term (current) use of insulin; Z88.7 Allergy status to serum and vaccine
CPT/HCPCS: 36415; 36416; 71045; 80048; 80053; 80069; 80202; 82306; 82570; 82728; 83540; 83550; 83605; 83970; 84156; 85007; 85025; 85027; 85652; 86140; 87040; 87070; 87076; 87077; 87102; 87116; 87205; 87206; 88305; 88311; 93005; 93010; 96365; 96366; 96367; C1751; J0295; J0360; J0696; J1200; J1642; J1650; J1815; J2001; J2270; J2405; J2543; J2704; J3010; J3370; J3490; J7050

== ENCOUNTER 2020-08-22 20:17 | Inpatient (IN) | payer BC, SELFPAY ==
[2020-08-22 21:11] LABS: #Basophils 0.1 thou/uL (0.0-0.2); #Eosinphils 0.4 thou/uL (0.0-0.7); #Lymphocytes 1.6 thou/uL (1.20-3.40); #Monocytes 0.4 thou/uL (0.11-0.59); #Neutrophils 4.8 thou/uL (1.40-6.50); %Basophils 1.1 % (0.0-1.0); %Eosinophils 5.4 % (0.0-10.0); %Lymphocytes 21.7 % (21.0-51.0); %Monocytes 5.2 % (0.0-10.0); %Neutrophils 66.7 % (42.0-75.0); Hemoglobin 10.2 g/dL (12.0-16.0); Mean Corpuscular HGB CONC 32.4 g/dL (32.0-36.0); Mean Corpuscular Hemoglobin 29.7 pg (27.0-31.0); Mean Corpuscular Volume 91.7 fL (78.0-98.0); Mean Platelet Volume 9.2 fL (7.4-10.4); Platelet Count 310 thou/uL (130-400); RBC Distribution Width 14.6 % (11.5-14.5); Red Blood Cell (RBC) Count 3.45 mill/uL (4.20-5.40); White Blood Cell (WBC) Count 7.2 thou/uL (4.8-10.8)
[2020-08-22] MEDS ORDERED: Albuterol 200 PUFF (6.7GM INHALER) ONE (21:13)
[2020-08-22 21:28] LABS: Anion Gap 17 mmol/L (10-20); BUN (Urea Nitrogen) 67 mg/dL (9.8-20.1); Calc. Creatinine Clearance 0 mL/min (70-130); Carbon Dioxide 16 mmol/L (22-29); Chloride 115 mmol/L (98-107); Sodium 141 mmol/L (136-145)
[2020-08-22 21:29] LABS: ALT (SGPT) 8 U/L (8-55); AST (SGOT) 13 U/L (5-34); Albumin 2.4 g/dL (3.5-5.0); Alkaline Phosphatase 100 U/L (40-110); Bilirubin, Total Less than 0.2 mg/dL (0.2-1.2); CK (CPK) 523 U/L (29-168); Globulin 3.6 g/dL (2.4-3.5); Glucose 130 mg/dL (70-105)
[2020-08-22 21:33] LABS: Potassium 7.4 mmol/L (3.5-5.1)
[2020-08-22] MEDS ORDERED: Dextrose 50% Abboject 50 ML SYRINGE ONE (21:56)
[2020-08-22] MEDS ORDERED: Calcium Chloride 1 GM/10 ML Abboject SYRINGE ONE (21:56)
[2020-08-22] MEDS ORDERED: Insulin Regular 300 UNITS/3 ML VIAL ONE (21:59)
[2020-08-22] MEDS ORDERED: Albuterol Sulfate 2.5 mg/3 ml Neb ONE (22:10)
[2020-08-22] MEDS ORDERED: Sodium Bicarb 50 MEQ/50 ML Abboject 8.4% SYRINGE ONE (22:14)
[2020-08-22] MEDS ORDERED: Acetaminophen 325 MG TAB PO PRN (22:57)
[2020-08-22] MEDS ORDERED: Ondansetron PF 4 MG/2 ML Vial IVP PRN (22:57)
[2020-08-22] MEDS ORDERED: Dextrose 50% Abboject 50 ML SYRINGE SLOW IVP PRN (22:59)
[2020-08-22] MEDS ORDERED: Dextrose 5% in Water 1,000 ML IV PRN (22:59)
[2020-08-22 23:16] LABS: Anion Gap 15 mmol/L (10-20); BUN (Urea Nitrogen) 65 mg/dL (9.8-20.1); Calc. Creatinine Clearance 0 mL/min (70-130); Calcium 6.7 mg/dL (7.8-10.44); Carbon Dioxide 16 mmol/L (22-29); Chloride 117 mmol/L (98-107); Glucose 124 mg/dL (70-105); Potassium 6.2 mmol/L (3.5-5.1); Sodium 142 mmol/L (136-145)
[2020-08-23] MEDS ORDERED: Lidocaine 1% (PF) 30 ML VIAL ONE (00:45)
[2020-08-23 00:52] LABS: SARS-CoV-2 NAA Rapid Test Not Detected (NotDetected)
[2020-08-23 00:59] LABS: HBSAB Concentration Less than 8.00 mIU/mL; HBSAg Index 0.17 S/CO (0-0.99); Hep B Core Total Ab Non-Reactive (NonReactive); Hep B Core Total Index 0.06 S/CO (0-0.79); Hep B Surf AB Non-Reactive (NonReactive); Hep B Surf Ag Non-Reactive S/CO (NonReactive); Hep C IgG Ab Non-Reactive (NonReactive); Hep C Index 0.08 S/CO (0-0.79)
[2020-08-23 03:43] LABS: #Basophils 0.1 thou/uL (0.0-0.2); #Eosinphils 0.2 thou/uL (0.0-0.7); #Lymphocytes 1.2 thou/uL (1.20-3.40); #Monocytes 0.4 thou/uL (0.11-0.59); #Neutrophils 3.6 thou/uL (1.40-6.50); %Basophils 1.1 % (0.0-1.0); %Eosinophils 4.4 % (0.0-10.0); %Lymphocytes 21.7 % (21.0-51.0); %Monocytes 6.8 % (0.0-10.0); Hemoglobin 9.5 g/dL (12.0-16.0); Mean Corpuscular HGB CONC 31.3 g/dL (32.0-36.0); Mean Corpuscular Hemoglobin 28.4 pg (27.0-31.0); Mean Corpuscular Volume 90.6 fL (78.0-98.0); Mean Platelet Volume 8.9 fL (7.4-10.4); Platelet Count 277 thou/uL (130-400); RBC Distribution Width 14.5 % (11.5-14.5); Red Blood Cell (RBC) Count 3.35 mill/uL (4.20-5.40); White Blood Cell (WBC) Count 5.5 thou/uL (4.8-10.8)
[2020-08-23 03:59] LABS: Albumin 2.2 g/dL (3.5-5.0); Anion Gap 15 mmol/L (10-20); BUN (Urea Nitrogen) 44 mg/dL (9.8-20.1); BUN/Creatinine Ratio 10.16; Calc. Creatinine Clearance 27 mL/min (70-130); Calcium 6.9 mg/dL (7.8-10.44); Carbon Dioxide 21 mmol/L (22-29); Chloride 112 mmol/L (98-107); Glucose 80 mg/dL (70-105); Phosphorus 4.4 mg/dL (2.3-4.7); Potassium 4.8 mmol/L (3.5-5.1); Sodium 143 mmol/L (136-145)
[2020-08-23] MEDS: hydrALAZINE 20 MG/ML VIAL SLOW IVP PRN ×2 (06:23→17:01)
[2020-08-23] MEDS ORDERED: Senokot S 8.6-50 MG TAB PO PRN (07:17)
[2020-08-23] MEDS: Ergocalciferol 1.25 MG(50,000 UNITS) CAP PO SCH (08:44)
[2020-08-23] MEDS: Carvedilol 6.25 MG TAB PO SCH ×2 (08:45→17:01)
[2020-08-23] MEDS: hydrALAZINE 25 MG TAB PO SCH ×2 (08:45→20:36)
[2020-08-23] MEDS: Heparin 5,000 UNITS/ML VIAL SC SCH ×2 (08:46→20:33)
[2020-08-23] MEDS ORDERED: NIFEdipine XL 30 MG TAB PO SCH (09:00)
[2020-08-23] MEDS ORDERED: Heparin 5,000 UNITS/ML VIAL SC SCH (09:00)
[2020-08-23] MEDS ORDERED: Heparin 10,000 UNITS/ 10 ML VIAL ONE (11:09)
[2020-08-23] MEDS: Atorvastatin Calcium 40 MG TAB PO SCH (20:32)
[2020-08-23] MEDS: NIFEdipine XL 30 MG TAB PO SCH (20:34)
[2020-08-23] MEDS ORDERED: FLU VACC QS2020-21(6MOS UP)/PF 60 MCG/0.5 ML SYRINGE IM ONE (21:00)
[2020-08-24 03:19] LABS: #Basophils 0.1 thou/uL (0.0-0.2); #Eosinphils 0.3 thou/uL (0.0-0.7); #Lymphocytes 2.3 thou/uL (1.20-3.40); #Monocytes 0.5 thou/uL (0.11-0.59); #Neutrophils 5.7 thou/uL (1.40-6.50); %Basophils 0.9 % (0.0-1.0); %Eosinophils 3.5 % (0.0-10.0); %Lymphocytes 25.5 % (21.0-51.0); %Monocytes 6.1 % (0.0-10.0); Hemoglobin 9.4 g/dL (12.0-16.0); Mean Corpuscular HGB CONC 32.1 g/dL (32.0-36.0); Mean Corpuscular Hemoglobin 28.9 pg (27.0-31.0); Platelet Count 273 thou/uL (130-400); RBC Distribution Width 14.4 % (11.5-14.5); Red Blood Cell (RBC) Count 3.23 mill/uL (4.20-5.40); White Blood Cell (WBC) Count 8.9 thou/uL (4.8-10.8)
[2020-08-24 03:43] LABS: Albumin 1.9 g/dL (3.5-5.0); Anion Gap 13 mmol/L (10-20); BUN (Urea Nitrogen) 51 mg/dL (9.8-20.1); Calc. Creatinine Clearance 20 mL/min (70-130); Calcium 6.2 mg/dL (7.8-10.44); Carbon Dioxide 18 mmol/L (22-29); Chloride 113 mmol/L (98-107); Glucose 126 mg/dL (70-105); Potassium 5.4 mmol/L (3.5-5.1); Sodium 139 mmol/L (136-145)
[2020-08-24] MEDS: Levothyroxine Sodium 50 MCG TAB PO SCH (06:00)
[2020-08-24] MEDS ORDERED: Heparin 10,000 UNITS/ 10 ML VIAL ONE (11:07)
[2020-08-24] MEDS: NIFEdipine XL 30 MG TAB PO SCH ×2 (12:28→21:13)
[2020-08-24] MEDS: hydrALAZINE 25 MG TAB PO SCH ×2 (12:28→21:12)
[2020-08-24] MEDS: Carvedilol 6.25 MG TAB PO SCH ×2 (12:29→16:33)
[2020-08-24] MEDS: Heparin 5,000 UNITS/ML VIAL SC SCH ×2 (12:29→21:14)
[2020-08-24] MEDS: Calcium Acetate 667 MG CAP PO SCH ×2 (16:32→16:33)
[2020-08-24] MEDS: Atorvastatin Calcium 40 MG TAB PO SCH (21:12)
[2020-08-24] MEDS: HumaLOG 300 UNITS/3 ML VIAL SC PRN (21:15)
[2020-08-25 05:18] LABS: #Eosinphils 0.3 thou/uL (0.0-0.7); #Lymphocytes 1.8 thou/uL (1.20-3.40); #Monocytes 0.6 thou/uL (0.11-0.59); #Neutrophils 5.3 thou/uL (1.40-6.50); %Basophils 0.1 % (0.0-1.0); %Eosinophils 3.2 % (0.0-10.0); %Lymphocytes 22.5 % (21.0-51.0); %Monocytes 7.4 % (0.0-10.0); %Neutrophils 66.9 % (42.0-75.0); Hemoglobin 9.5 g/dL (12.0-16.0); Mean Corpuscular HGB CONC 31.1 g/dL (32.0-36.0); Mean Corpuscular Hemoglobin 27.7 pg (27.0-31.0); Mean Corpuscular Volume 89.2 fL (78.0-98.0); Mean Platelet Volume 9.7 fL (7.4-10.4); Platelet Count 273 thou/uL (130-400); RBC Distribution Width 14.1 % (11.5-14.5); Red Blood Cell (RBC) Count 3.43 mill/uL (4.20-5.40); White Blood Cell (WBC) Count 7.9 thou/uL (4.8-10.8)
[2020-08-25 05:41] LABS: Albumin 1.9 g/dL (3.5-5.0); Anion Gap 13 mmol/L (10-20); BUN (Urea Nitrogen) 32 mg/dL (9.8-20.1); BUN/Creatinine Ratio 7.42; Calc. Creatinine Clearance 27 mL/min (70-130); Calcium 6.4 mg/dL (7.8-10.44); Carbon Dioxide 22 mmol/L (22-29); Chloride 107 mmol/L (98-107); Glucose 118 mg/dL (70-105); Phosphorus 4.6 mg/dL (2.3-4.7); Potassium 4.3 mmol/L (3.5-5.1); Sodium 138 mmol/L (136-145)
[2020-08-25] MEDS: Levothyroxine Sodium 50 MCG TAB PO SCH (05:51)
[2020-08-25] MEDS: Calcium Acetate 667 MG CAP PO SCH ×3 (08:00→17:00)
[2020-08-25] MEDS: Calcitriol 0.25 MCG CAP PO SCH (08:26)
[2020-08-25] MEDS: Heparin 5,000 UNITS/ML VIAL SC SCH ×2 (08:28→20:50)
[2020-08-25] MEDS: NIFEdipine XL 30 MG TAB PO SCH ×2 (08:29→20:50)
[2020-08-25] MEDS: Carvedilol 6.25 MG TAB PO SCH ×2 (08:29→17:33)
[2020-08-25] MEDS: hydrALAZINE 25 MG TAB PO SCH ×2 (08:29→20:50)
[2020-08-25] MEDS ORDERED: Heparin 10,000 UNITS/ 10 ML VIAL ONE (10:40)
[2020-08-25] MEDS: HumaLOG 300 UNITS/3 ML VIAL SC PRN (17:35)
[2020-08-25] MEDS: Atorvastatin Calcium 40 MG TAB PO SCH (20:51)
[2020-08-26 05:26] LABS: Anion Gap 13 mmol/L (10-20); BUN (Urea Nitrogen) 21 mg/dL (9.8-20.1); BUN/Creatinine Ratio 6.02; Calc. Creatinine Clearance 33 mL/min (70-130); Calcium 6.8 mg/dL (7.8-10.44); Carbon Dioxide 25 mmol/L (22-29); Chloride 105 mmol/L (98-107); Glucose 110 mg/dL (70-105); Phosphorus 4.3 mg/dL (2.3-4.7); Potassium 3.9 mmol/L (3.5-5.1); Sodium 139 mmol/L (136-145)
[2020-08-26] MEDS: Levothyroxine Sodium 50 MCG TAB PO SCH (07:56)
[2020-08-26] MEDS: Calcium Acetate 667 MG CAP PO SCH ×3 (07:56→17:01)
[2020-08-26] MEDS: Calcitriol 0.25 MCG CAP PO SCH (07:57)
[2020-08-26] MEDS: Carvedilol 6.25 MG TAB PO SCH (07:57)
[2020-08-26] MEDS: Heparin 5,000 UNITS/ML VIAL SC SCH ×2 (07:58→21:31)
[2020-08-26] MEDS: hydrALAZINE 25 MG TAB PO SCH ×2 (07:58→21:38)
[2020-08-26] MEDS: NIFEdipine XL 30 MG TAB PO SCH ×2 (07:59→21:21)
[2020-08-26] MEDS ORDERED: Carvedilol 6.25 MG TAB PO SCH ×2 (09:46→10:00)
[2020-08-26] MEDS ORDERED: Carvedilol 25 MG TAB PO SCH (10:00)
[2020-08-26] MEDS: HumaLOG 300 UNITS/3 ML VIAL SC PRN (11:48)
[2020-08-26] MEDS: Carvedilol 25 MG TAB PO SCH (17:01)
[2020-08-26] MEDS: Atorvastatin Calcium 40 MG TAB PO SCH (21:20)
[2020-08-27] MEDS: Levothyroxine Sodium 50 MCG TAB PO SCH (05:30)
[2020-08-27 06:01] LABS: Anion Gap 13 mmol/L (10-20); BUN (Urea Nitrogen) 26 mg/dL (9.8-20.1); BUN/Creatinine Ratio 5.92; Calc. Creatinine Clearance 25 mL/min (70-130); Calcium 6.8 mg/dL (7.8-10.44); Carbon Dioxide 24 mmol/L (22-29); Chloride 106 mmol/L (98-107); Glucose 133 mg/dL (70-105); Phosphorus 4.9 mg/dL (2.3-4.7); Sodium 139 mmol/L (136-145)
[2020-08-27] MEDS ORDERED: Heparin 10,000 UNITS/ 10 ML VIAL ONE (11:43)
[2020-08-27] MEDS ORDERED: CEFAZOLIN 2 GM in Premix Bag 1 BAG IVPB SCH (12:30)
[2020-08-27] MEDS: Heparin 5,000 UNITS/ML VIAL SC SCH ×2 (13:14→20:16)
[2020-08-27] MEDS: Calcium Acetate 667 MG CAP PO SCH ×3 (13:14→16:41)
[2020-08-27] MEDS: Calcitriol 0.25 MCG CAP PO SCH (13:16)
[2020-08-27] MEDS: NIFEdipine XL 30 MG TAB PO SCH ×2 (13:17→20:23)
[2020-08-27] MEDS: Carvedilol 25 MG TAB PO SCH ×2 (13:17→16:41)
[2020-08-27] MEDS: hydrALAZINE 25 MG TAB PO SCH ×2 (13:17→20:24)
[2020-08-27] MEDS: Atorvastatin Calcium 40 MG TAB PO SCH (20:24)
[2020-08-28] MEDS: Levothyroxine Sodium 50 MCG TAB PO SCH (05:14)
[2020-08-28] MEDS: Heparin 5,000 UNITS/ML VIAL SC SCH ×2 (09:00→20:42)
[2020-08-28] MEDS ORDERED: PROPOFOL 200 MG/20 ML VIAL ONE (09:33)
[2020-08-28] MEDS ORDERED: Ondansetron PF 4 MG/2 ML Vial ONE (09:33)
[2020-08-28] MEDS ORDERED: Bupivacaine HCl 0.5%/Epinephrine 1:200,000/PF 30 ml Vial ONE (09:33)
[2020-08-28] MEDS ORDERED: Heparin 10,000 UNITS/ 10 ML VIAL ONE (09:37)
[2020-08-28] MEDS ORDERED: Lidocaine 1% w/Epinephrine 1:100K 20 ML VIAL ONE (09:37)
[2020-08-28] MEDS ORDERED: Protamine Sulfate 50 MG/5 ML VIAL ONE (09:37)
[2020-08-28] MEDS ORDERED: Heparin 5,000 UNITS/ML VIAL ONE (09:37)
[2020-08-28] MEDS ORDERED: Bupivacaine PF 0.5% 30 ML VIAL ONE (09:37)
[2020-08-28] MEDS ORDERED: Fentanyl 100 MCG/2 ML VIAL ONE ×2 (09:52→09:53)
[2020-08-28] MEDS: Calcium Acetate 667 MG CAP PO SCH ×3 (10:04→15:50)
[2020-08-28] MEDS ORDERED: Sodium Chloride 0.9% 30 ML ONE (10:32)
[2020-08-28] MEDS ORDERED: Acetaminophen 500 MG TAB PO PRN (11:25)
[2020-08-28] MEDS ORDERED: Ondansetron HCl/PF 4 MG/2 ML Vial IVP PRN (11:35)
[2020-08-28] MEDS ORDERED: Promethazine HCl 25 MG/ML VIAL IM PRN (11:35)
[2020-08-28] MEDS ORDERED: Promethazine HCl 25 MG/ML VIAL SLOW IVP PRN (11:35)
[2020-08-28] MEDS: Carvedilol 25 MG TAB PO SCH ×2 (12:15→15:50)
[2020-08-28] MEDS: hydrALAZINE 25 MG TAB PO SCH ×2 (12:16→20:41)
[2020-08-28] MEDS: NIFEdipine XL 30 MG TAB PO SCH ×2 (12:16→20:42)
[2020-08-28] MEDS: Calcitriol 0.25 MCG CAP PO SCH (12:16)
[2020-08-28] MEDS: HumaLOG 300 UNITS/3 ML VIAL SC PRN (20:41)
[2020-08-28] MEDS: Atorvastatin Calcium 40 MG TAB PO SCH (20:42)
[2020-08-29] MEDS: Levothyroxine Sodium 50 MCG TAB PO SCH (06:17)
[2020-08-29 09:28] LABS: #Basophils 0.1 thou/uL (0.0-0.2); #Eosinphils 0.3 thou/uL (0.0-0.7); #Lymphocytes 1.3 thou/uL (1.20-3.40); #Monocytes 0.6 thou/uL (0.11-0.59); %Basophils 0.8 % (0.0-1.0); %Eosinophils 3.8 % (0.0-10.0); %Lymphocytes 17.8 % (21.0-51.0); %Neutrophils 69.6 % (42.0-75.0); Hemoglobin 9.6 g/dL (12.0-16.0); Mean Corpuscular HGB CONC 31.5 g/dL (32.0-36.0); Mean Corpuscular Hemoglobin 28.5 pg (27.0-31.0); Mean Corpuscular Volume 90.3 fL (78.0-98.0); Mean Platelet Volume 9.1 fL (7.4-10.4); Platelet Count 255 thou/uL (130-400); RBC Distribution Width 13.7 % (11.5-14.5); Red Blood Cell (RBC) Count 3.36 mill/uL (4.20-5.40); White Blood Cell (WBC) Count 7.1 thou/uL (4.8-10.8)
[2020-08-29 09:53] LABS: ALT (SGPT) Less than 7 U/L (8-55); AST (SGOT) 14 U/L (5-34); Albumin 2.1 g/dL (3.5-5.0); Alkaline Phosphatase 81 U/L (40-110); Anion Gap 13 mmol/L (10-20); BUN (Urea Nitrogen) 26 mg/dL (9.8-20.1); Bilirubin, Total Less than 0.2 mg/dL (0.2-1.2); Calc. Creatinine Clearance 23 mL/min (70-130); Carbon Dioxide 24 mmol/L (22-29); Chloride 104 mmol/L (98-107); Glucose 116 mg/dL (70-105); Protein, Total 5.1 g/dL (6.0-8.3); Sodium 137 mmol/L (136-145)
[2020-08-29] MEDS ORDERED: Heparin 10,000 UNITS/ 10 ML VIAL ONE (10:23)
[2020-08-29] MEDS: Calcium Acetate 667 MG CAP PO SCH ×3 (14:06→17:47)
[2020-08-29] MEDS: Carvedilol 25 MG TAB PO SCH ×2 (14:07→17:47)
[2020-08-29] MEDS: hydrALAZINE 25 MG TAB PO SCH ×2 (14:07→20:14)
[2020-08-29] MEDS: Calcitriol 0.25 MCG CAP PO SCH (14:07)
[2020-08-29] MEDS: Heparin 5,000 UNITS/ML VIAL SC SCH ×2 (14:09→20:17)
[2020-08-29] MEDS: NIFEdipine XL 30 MG TAB PO SCH ×2 (14:09→20:14)
[2020-08-29] MEDS: HumaLOG 300 UNITS/3 ML VIAL SC PRN (17:45)
[2020-08-29] MEDS: Atorvastatin Calcium 40 MG TAB PO SCH (20:12)
[2020-08-29] MEDS: traMADol HCl 50 MG TAB PO PRN (20:14)
[2020-08-30] MEDS: Levothyroxine Sodium 50 MCG TAB PO SCH (05:43)
[2020-08-30] MEDS: NIFEdipine XL 30 MG TAB PO SCH ×2 (08:35→20:19)
[2020-08-30] MEDS: Calcium Acetate 667 MG CAP PO SCH ×3 (08:35→17:42)
[2020-08-30] MEDS: hydrALAZINE 25 MG TAB PO SCH ×2 (08:35→20:23)
[2020-08-30] MEDS: Carvedilol 25 MG TAB PO SCH ×2 (08:36→17:42)
[2020-08-30] MEDS: Heparin 5,000 UNITS/ML VIAL SC SCH ×2 (08:36→20:23)
[2020-08-30] MEDS: Calcitriol 0.25 MCG CAP PO SCH (08:36)
[2020-08-30] MEDS: Ergocalciferol 1.25 MG(50,000 UNITS) CAP PO SCH (08:46)
[2020-08-30] MEDS: HumaLOG 300 UNITS/3 ML VIAL SC PRN ×2 (12:15→17:43)
[2020-08-30] MEDS: traMADol HCl 50 MG TAB PO PRN (19:46)
[2020-08-30] MEDS: Atorvastatin Calcium 40 MG TAB PO SCH (20:22)
[2020-08-31] MEDS: Levothyroxine Sodium 50 MCG TAB PO SCH (05:23)
[2020-08-31] MEDS: NIFEdipine XL 30 MG TAB PO SCH ×2 (08:06→22:30)
[2020-08-31] MEDS: Calcium Acetate 667 MG CAP PO SCH ×3 (08:06→16:06)
[2020-08-31] MEDS: Calcitriol 0.25 MCG CAP PO SCH (08:07)
[2020-08-31] MEDS: Heparin 5,000 UNITS/ML VIAL SC SCH ×2 (08:07→20:41)
[2020-08-31] MEDS: Carvedilol 25 MG TAB PO SCH ×2 (08:07→16:06)
[2020-08-31] MEDS: hydrALAZINE 25 MG TAB PO SCH ×2 (08:07→20:41)
[2020-08-31 11:56] VITALS: BMI 16.0
[2020-08-31] MEDS: HumaLOG 300 UNITS/3 ML VIAL SC PRN (16:27)
[2020-08-31] MEDS: Atorvastatin Calcium 40 MG TAB PO SCH (20:41)
[2020-08-31] MEDS: traMADol HCl 50 MG TAB PO PRN (20:42)
[2020-09-01] MEDS: Levothyroxine Sodium 50 MCG TAB PO SCH (06:04)
[2020-09-01] MEDS: Heparin 5,000 UNITS/ML VIAL SC SCH ×2 (09:00→22:08)
[2020-09-01] MEDS: Carvedilol 25 MG TAB PO SCH ×2 (09:00→17:29)
[2020-09-01] MEDS: hydrALAZINE 25 MG TAB PO SCH ×2 (09:00→22:08)
[2020-09-01] MEDS: Calcium Acetate 667 MG CAP PO SCH ×3 (09:00→17:29)
[2020-09-01] MEDS: NIFEdipine XL 30 MG TAB PO SCH ×2 (09:00→22:08)
[2020-09-01 09:43] LABS: Mean Corpuscular HGB CONC 32.1 g/dL (32.0-36.0); Mean Corpuscular Hemoglobin 28.8 pg (27.0-31.0); Mean Corpuscular Volume 89.7 fL (78.0-98.0); Mean Platelet Volume 9.6 fL (7.4-10.4); Platelet Count 246 thou/uL (130-400); RBC Distribution Width 13.2 % (11.5-14.5); Red Blood Cell (RBC) Count 3.12 mill/uL (4.20-5.40); White Blood Cell (WBC) Count 6.7 thou/uL (4.8-10.8)
[2020-09-01 10:03] LABS: Band 1 % (5-11); Eosinophils 8 % (0-10); Large Platelets SLIGHT; Lymphocytes 20 % (21-51); MDiff Complete? YES; Monocytes 4 % (0-10); Neutrophil 67 % (42-75); Platelet Morphology Comment Appears Adequate; RBC Morphology Normal
[2020-09-01 10:08] LABS: Anion Gap 14 mmol/L (10-20); BUN (Urea Nitrogen) 39 mg/dL (9.8-20.1); Calc. Creatinine Clearance 19 mL/min (70-130); Calcium 6.8 mg/dL (7.8-10.44); Carbon Dioxide 24 mmol/L (22-29); Chloride 99 mmol/L (98-107); Glucose 117 mg/dL (70-105); Potassium 4.4 mmol/L (3.5-5.1); Sodium 133 mmol/L (136-145)
[2020-09-01] MEDS: Calcitriol 0.25 MCG CAP PO SCH (13:51)
[2020-09-01] MEDS: HumaLOG 300 UNITS/3 ML VIAL SC PRN (17:29)
[2020-09-01] MEDS: traMADol HCl 50 MG TAB PO PRN (22:06)
[2020-09-01] MEDS: Atorvastatin Calcium 40 MG TAB PO SCH (22:07)
[2020-09-02] MEDS: Levothyroxine Sodium 50 MCG TAB PO SCH (05:30)
[2020-09-02] MEDS: Calcium Acetate 667 MG CAP PO SCH ×3 (08:24→16:29)
[2020-09-02] MEDS: NIFEdipine XL 30 MG TAB PO SCH ×2 (08:24→20:11)
[2020-09-02] MEDS: hydrALAZINE 25 MG TAB PO SCH ×2 (08:24→20:10)
[2020-09-02] MEDS: Carvedilol 25 MG TAB PO SCH ×2 (08:25→16:29)
[2020-09-02] MEDS: Heparin 5,000 UNITS/ML VIAL SC SCH ×2 (08:25→20:10)
[2020-09-02] MEDS: Calcitriol 0.25 MCG CAP PO SCH (08:25)
[2020-09-02] MEDS: HumaLOG 300 UNITS/3 ML VIAL SC PRN ×2 (16:57→20:07)
[2020-09-02] MEDS: Atorvastatin Calcium 40 MG TAB PO SCH (20:09)
[2020-09-03] MEDS: Levothyroxine Sodium 50 MCG TAB PO SCH (05:33)
[2020-09-03] MEDS: hydrALAZINE 25 MG TAB PO SCH (08:03)
[2020-09-03] MEDS: Carvedilol 25 MG TAB PO SCH ×2 (08:03→17:38)
[2020-09-03] MEDS: Calcium Acetate 667 MG CAP PO SCH ×3 (08:03→17:38)
[2020-09-03] MEDS: Heparin 5,000 UNITS/ML VIAL SC SCH (08:04)
[2020-09-03] MEDS: NIFEdipine XL 30 MG TAB PO SCH (08:04)
[2020-09-03] MEDS ORDERED: Heparin 10,000 UNITS/ 10 ML VIAL ONE (09:59)
[2020-09-03] MEDS: Calcitriol 0.25 MCG CAP PO SCH (14:08)
[2020-09-03 17:59] VITALS: BP 136/72; TEMP 98.6
== END 2020-09-03 19:15 | disposition home or self-care (01) | DRG 673 ==
LOC: ERS 20:17 → IMCU/EMU 22:25 → 3SE 08-25 00:23 → T4-B 08-27 18:47
PROVIDERS: ADMIT Internal Medicine; ATTEND Internal Medicine
PROC: 5A1D90Z Performance of Urinary Filtration, Continuous, Greater than 18 hours Per Day (ICD-10-PCS; 2020-08-23)
PROC: 06HY33Z Insertion of Infusion Device into Lower Vein, Percutaneous Approach (ICD-10-PCS; 2020-08-23)
PROC: 031C0ZF Bypass Left Radial Artery to Lower Arm Vein, Open Approach (ICD-10-PCS; principal; 2020-08-28)
PROC: 0JH63XZ Insertion of Tunneled Vascular Access Device into Chest Subcutaneous Tissue and Fascia, Percutaneous Approach (ICD-10-PCS; 2020-08-28)
PROC: 02HV33Z Insertion of Infusion Device into Superior Vena Cava, Percutaneous Approach (ICD-10-PCS; 2020-08-28)
PROC: B548ZZA Ultrasonography of Superior Vena Cava, Guidance (ICD-10-PCS; 2020-08-28)
DX: N17.9 Acute kidney failure, unspecified (principal); I50.31 Acute diastolic (congestive) heart failure; I13.2 Hypertensive heart and chronic kidney disease with heart failure and with stage 5 chronic kidney disease, or end stage renal disease; E87.2 Acidosis; E46 Unspecified protein-calorie malnutrition; Z68.41 Body mass index [BMI] 40.0-44.9, adult; I42.8 Other cardiomyopathies; N18.6 End stage renal disease; N25.81 Secondary hyperparathyroidism of renal origin; Z20.822 Contact with and (suspected) exposure to COVID-19; E03.9 Hypothyroidism, unspecified; E87.5 Hyperkalemia; E83.51 Hypocalcemia; E11.22 Type 2 diabetes mellitus with diabetic chronic kidney disease; D63.1 Anemia in chronic kidney disease; M1A.9XX0 Chronic gout, unspecified, without tophus (tophi); E83.39 Other disorders of phosphorus metabolism; E11.51 Type 2 diabetes mellitus with diabetic peripheral angiopathy without gangrene; E88.81 Metabolic syndrome and other insulin resistance; Z87.891 Personal history of nicotine dependence; Z79.4 Long term (current) use of insulin; Z79.890 Hormone replacement therapy; Z79.899 Other long term (current) drug therapy; Z88.7 Allergy status to serum and vaccine
CPT/HCPCS: 36415; 36416; 71045; 76770; 80048; 80053; 80069; 82550; 83880; 83970; 85007; 85025; 85027; 86704; 86706; 86803; 87340; 90935; 93005; 93306; 93970; 94640; 96374; 96375; C1752; G0257; J0360; J0690; J1644; J1815; J2001; J2405; J2704; J2720; J3010; J7611; S0020; U0002

== ENCOUNTER 2020-10-06 07:14 | Day surgery (SDC) | payer BC, SELFPAY ==
[2020-10-06] MEDS ORDERED: Heparin 1,000 UNITS/ML VIAL ONE (08:51)
[2020-10-06] MEDS ORDERED: Iopamidol 300 61% 100 ML VIAL FS ONE (09:25)
[2020-10-06 09:54] VITALS: BP 126/58; TEMP 97.2
[2020-10-06 09:55] VITALS: BMI 40.1
== END 2020-10-06 09:35 | disposition home or self-care (01) ==
LOC: SPEC 07:14
PROVIDERS: ATTEND Specialist
PROC: B51W1ZZ Fluoroscopy of Dialysis Shunt/Fistula using Low Osmolar Contrast (ICD-10-PCS; principal; 2020-10-06)
DX: T82.590A Other mechanical complication of surgically created arteriovenous fistula, initial encounter (principal); I13.2 Hypertensive heart and chronic kidney disease with heart failure and with stage 5 chronic kidney disease, or end stage renal disease; E11.22 Type 2 diabetes mellitus with diabetic chronic kidney disease; N18.6 End stage renal disease; I50.9 Heart failure, unspecified; D63.1 Anemia in chronic kidney disease; E03.9 Hypothyroidism, unspecified; K21.9 Gastro-esophageal reflux disease without esophagitis; Z79.899 Other long term (current) drug therapy; Z88.8 Allergy status to other drugs, medicaments and biological substances
CPT/HCPCS: 36901; 76937; J1644; Q9967

== ENCOUNTER 2022-08-25 00:54 | Inpatient (IN) | payer BC, MEDICARE ==
[2022-08-25 01:14] VITALS: BMI 32.3
[2022-08-25] MEDS ORDERED: Bisacodyl 5 MG TAB PO PRN (01:43)
[2022-08-25] MEDS ORDERED: Loratadine 10 MG TAB PO PRN (01:43)
[2022-08-25] MEDS ORDERED: Famotidine 20 MG TAB PO PRN (01:43)
[2022-08-25] MEDS ORDERED: Ondansetron ODT 4 MG TAB PO PRN (01:46)
[2022-08-25] MEDS ORDERED: Vancomycin Dose by Levels Sliding Scale (Wt 71-99) FS SCH (02:00)
[2022-08-25] MEDS ORDERED: Dextrose 50% Abboject 50 ML SYRINGE SLOW IVP PRN (02:58)
[2022-08-25] MEDS ORDERED: Dextrose 5% in Water 1,000 ML IV PRN (02:58)
[2022-08-25 05:34] LABS: #Eosinphils 0.3 thou/uL (0.0-0.7); #Lymphocytes 1.1 thou/uL (1.20-3.40); #Monocytes 0.7 thou/uL (0.11-0.59); #Neutrophils 7.8 thou/uL (1.40-6.50); %Basophils 0.2 % (0.0-1.0); %Eosinophils 2.5 % (0.0-10.0); %Lymphocytes 11.3 % (21.0-51.0); %Monocytes 6.8 % (0.0-10.0); %Neutrophils 79.2 % (42.0-75.0); Hemoglobin 10.4 g/dL (12.0-16.0); Mean Corpuscular HGB CONC 32.1 g/dL (32.0-36.0); Mean Corpuscular Hemoglobin 31.4 pg (27.0-31.0); Mean Corpuscular Volume 97.8 fl (78.0-98.0); Mean Platelet Volume 8.7 fL (7.4-10.4); Platelet Count 287 10x3/uL (130-400); RBC Distribution Width 12.6 % (11.5-14.5); Red Blood Cell (RBC) Count 3.31 mill/uL (4.20-5.40); White Blood Cell (WBC) Count 9.9 10x3/uL (4.8-10.8)
[2022-08-25 05:54] LABS: Anion Gap 19 mmol/L (10-20); BUN (Urea Nitrogen) 22 mg/dL (9.8-20.1); Calc. Creatinine Clearance 17 mL/min (70-130); Carbon Dioxide 24 mmol/L (22-29); Chloride 99 mmol/L (98-107); Estimated GFR 10; Glucose 144 mg/dL (70-105); Potassium 4.7 mmol/L (3.5-5.1); Sodium 137 mmol/L (136-145)
[2022-08-25] MEDS: Levothyroxine Sodium 50 MCG TAB PO SCH (06:13)
[2022-08-25] MEDS: Carvedilol 25 MG TAB PO SCH ×2 (08:05→16:24)
[2022-08-25] MEDS: Lisinopril 10 MG TAB PO SCH (08:05)
[2022-08-25] MEDS: Sevelamer Carbonate 800 MG TAB PO SCH ×3 (08:05→16:24)
[2022-08-25] MEDS: Aspirin 81 mg Enteric Coated Tablet PO SCH (08:05)
[2022-08-25] MEDS: Heparin 5,000 UNITS/ML VIAL SC SCH ×3 (08:06→21:11)
[2022-08-25] MEDS: Insulin Glargine 30 UNITS/0.3 ML VIAL SC SCH (08:06)
[2022-08-25] MEDS: Gabapentin 300 MG CAP PO SCH ×3 (08:06→21:11)
[2022-08-25] MEDS ORDERED: Levothyroxine Sodium 50 MCG TAB PO SCH (09:00)
[2022-08-25] MEDS ORDERED: Vancomycin 1.5 GRAM/300 ML BAG IVPB SCH (09:00)
[2022-08-25] MEDS: HumaLOG 300 UNITS/3 ML VIAL SC PRN (11:20)
[2022-08-25] MEDS: Acetaminophen 325 MG TAB PO PRN (16:27)
[2022-08-25] MEDS: Cefepime 0.5 GM in Sodium Chloride 0.9% 100 ML IVPB SCH (16:57)
[2022-08-25] MEDS: Atorvastatin Calcium 40 MG TAB PO SCH (21:10)
[2022-08-26 05:55] LABS: #Eosinphils 0.3 thou/uL (0.0-0.7); #Lymphocytes 1.7 thou/uL (1.20-3.40); #Monocytes 0.7 thou/uL (0.11-0.59); #Neutrophils 5.7 thou/uL (1.40-6.50); %Eosinophils 3.3 % (0.0-10.0); %Lymphocytes 19.9 % (21.0-51.0); %Monocytes 8.6 % (0.0-10.0); %Neutrophils 68.3 % (42.0-75.0); Hemoglobin 9.3 g/dL (12.0-16.0); Mean Corpuscular HGB CONC 32.6 g/dL (32.0-36.0); Mean Corpuscular Hemoglobin 31.9 pg (27.0-31.0); Mean Corpuscular Volume 97.9 fl (78.0-98.0); Mean Platelet Volume 8.6 fL (7.4-10.4); Platelet Count 253 10x3/uL (130-400); RBC Distribution Width 12.4 % (11.5-14.5); White Blood Cell (WBC) Count 8.4 10x3/uL (4.8-10.8)
[2022-08-26 06:01] LABS: Anion Gap 15 mmol/L (10-20); BUN (Urea Nitrogen) 46 mg/dL (9.8-20.1); Calc. Creatinine Clearance 12 mL/min (70-130); Calcium 8.6 mg/dL (7.8-10.44); Carbon Dioxide 26 mmol/L (22-29); Chloride 97 mmol/L (98-107); Estimated GFR 6; Glucose 146 mg/dL (70-105); Sodium 133 mmol/L (136-145)
[2022-08-26] MEDS: Levothyroxine Sodium 50 MCG TAB PO SCH (06:03)
[2022-08-26 07:19] LABS: Vancomycin, Random 17.5 ug/mL (See Comment)
[2022-08-26] MEDS: Carvedilol 25 MG TAB PO SCH ×2 (07:48→18:07)
[2022-08-26] MEDS: Sevelamer Carbonate 800 MG TAB PO SCH ×3 (07:51→18:08)
[2022-08-26] MEDS: Aspirin 81 mg Enteric Coated Tablet PO SCH (07:51)
[2022-08-26] MEDS: Gabapentin 300 MG CAP PO SCH ×3 (07:51→21:00)
[2022-08-26] MEDS: Heparin 5,000 UNITS/ML VIAL SC SCH ×3 (07:52→20:59)
[2022-08-26] MEDS: Insulin Glargine 30 UNITS/0.3 ML VIAL SC SCH (07:53)
[2022-08-26] MEDS: Lisinopril 10 MG TAB PO SCH (07:53)
[2022-08-26] MEDS ORDERED: Vancomycin Diaylsis Sliding Scale (Wt 71-99) FS SCH (08:15)
[2022-08-26] MEDS ORDERED: Bupivacaine/Epinephrine 0.25% 30 ML VIAL ONE (08:55)
[2022-08-26] MEDS ORDERED: Bacitracin Zinc Ointment 30 gm TUBE ONE (08:55)
[2022-08-26] MEDS ORDERED: fentaNYL PF 100 MCG/2 ML SYRINGE ONE (09:07)
[2022-08-26] MEDS ORDERED: PHENYLEPHRINE-NS 100 MCG/ML 10 ML SYRINGE ONE (09:10)
[2022-08-26] MEDS ORDERED: Lidocaine 1% PF 5 ML VIAL ONE (09:10)
[2022-08-26] MEDS ORDERED: Ondansetron PF 4 MG/2 ML Vial ONE (09:10)
[2022-08-26] MEDS ORDERED: PROPOFOL 200 MG/20 ML VIAL ONE (09:10)
[2022-08-26] MEDS ORDERED: Dexamethasone 20 MG/5 ML VIAL ONE (09:10)
[2022-08-26] MEDS ORDERED: Heparin 10,000 UNITS/ 10 ML VIAL ONE (09:11)
[2022-08-26] MEDS ORDERED: Ondansetron HCl/PF 4 MG/2 ML Vial IVP PRN (10:03)
[2022-08-26] MEDS ORDERED: Lidocaine 1% (PF) 30 ML VIAL ONE (12:20)
[2022-08-26 13:02] LABS: HBSAB Concentration Less than 8.00 mIU/mL; Hep B Core Total Ab Non-Reactive (NonReactive); Hep B Core Total Index 0.08 S/CO (0-0.79); Hep B Surf AB Non-Reactive (NonReactive); Hep B Surf Ag Non-Reactive S/CO (NonReactive); Hep C IgG Ab Non-Reactive (NonReactive); Hep C Index 0.07 S/CO (0-0.79)
[2022-08-26] MEDS ORDERED: Vancomycin HCl 750 MG in Sodium Chloride 0.9% 250 ML 250 ML IVPB SCH ×2 (17:00→21:00)
[2022-08-26] MEDS ORDERED: Iopamidol-370 76% 500 ML 1 ML ONE (18:05)
[2022-08-26] MEDS: Cefepime 0.5 GM in Sodium Chloride 0.9% 100 ML IVPB SCH (19:18)
[2022-08-26] MEDS: Atorvastatin Calcium 40 MG TAB PO SCH (21:00)
[2022-08-26] MEDS: Lisinopril 20 MG TAB PO SCH (21:01)
[2022-08-27] MEDS: Levothyroxine Sodium 50 MCG TAB PO SCH (05:26)
[2022-08-27 06:06] LABS: #Eosinphils 0.1 thou/uL (0.0-0.7); #Monocytes 0.8 thou/uL (0.11-0.59); %Basophils 0.1 % (0.0-1.0); %Eosinophils 0.9 % (0.0-10.0); %Lymphocytes 20.6 % (21.0-51.0); %Monocytes 7.6 % (0.0-10.0); %Neutrophils 70.8 % (42.0-75.0); Hemoglobin 9.6 g/dL (12.0-16.0); Mean Corpuscular HGB CONC 32.6 g/dL (32.0-36.0); Mean Corpuscular Hemoglobin 31.7 pg (27.0-31.0); Mean Corpuscular Volume 97.5 fl (78.0-98.0); Mean Platelet Volume 8.9 fL (7.4-10.4); Platelet Count 273 10x3/uL (130-400); RBC Distribution Width 12.4 % (11.5-14.5); Red Blood Cell (RBC) Count 3.02 mill/uL (4.20-5.40); White Blood Cell (WBC) Count 9.8 10x3/uL (4.8-10.8)
[2022-08-27 06:50] LABS: Anion Gap 17 mmol/L (10-20); BUN (Urea Nitrogen) 27 mg/dL (9.8-20.1); Calc. Creatinine Clearance 19 mL/min (70-130); Calcium 8.7 mg/dL (7.8-10.44); Carbon Dioxide 25 mmol/L (22-29); Chloride 96 mmol/L (98-107); Estimated GFR 11; Glucose 150 mg/dL (70-105); Potassium 4.4 mmol/L (3.5-5.1); Sodium 134 mmol/L (136-145)
[2022-08-27] MEDS: Sevelamer Carbonate 800 MG TAB PO SCH ×3 (08:05→16:50)
[2022-08-27] MEDS: Heparin 5,000 UNITS/ML VIAL SC SCH ×3 (08:05→20:59)
[2022-08-27] MEDS: Aspirin 81 mg Enteric Coated Tablet PO SCH (08:05)
[2022-08-27] MEDS: Insulin Glargine 30 UNITS/0.3 ML VIAL SC SCH (08:05)
[2022-08-27] MEDS: Lisinopril 20 MG TAB PO SCH ×2 (08:06→20:59)
[2022-08-27] MEDS: Carvedilol 25 MG TAB PO SCH ×2 (08:06→16:50)
[2022-08-27] MEDS: Gabapentin 300 MG CAP PO SCH ×3 (08:06→20:59)
[2022-08-27] MEDS: Acetaminophen 325 MG TAB PO PRN (11:04)
[2022-08-27] MEDS: HumaLOG 300 UNITS/3 ML VIAL SC PRN (12:03)
[2022-08-27] MEDS: Cefepime 0.5 GM in Sodium Chloride 0.9% 100 ML IVPB SCH (16:50)
[2022-08-27] MEDS: Atorvastatin Calcium 40 MG TAB PO SCH (20:59)
[2022-08-28] MEDS: Levothyroxine Sodium 50 MCG TAB PO SCH (05:36)
[2022-08-28 06:30] LABS: #Eosinphils 0.3 thou/uL (0.0-0.7); #Monocytes 0.8 thou/uL (0.11-0.59); #Neutrophils 3.9 thou/uL (1.40-6.50); %Eosinophils 3.3 % (0.0-10.0); %Monocytes 9.5 % (0.0-10.0); %Neutrophils 49.2 % (42.0-75.0); Hemoglobin 9.8 g/dL (12.0-16.0); Mean Corpuscular HGB CONC 33.2 g/dL (32.0-36.0); Mean Corpuscular Hemoglobin 32.1 pg (27.0-31.0); Mean Corpuscular Volume 96.7 fl (78.0-98.0); Mean Platelet Volume 8.6 fL (7.4-10.4); Platelet Count 284 10x3/uL (130-400); RBC Distribution Width 12.3 % (11.5-14.5); Red Blood Cell (RBC) Count 3.05 mill/uL (4.20-5.40)
[2022-08-28 06:50] LABS: Anion Gap 16 mmol/L (10-20); BUN (Urea Nitrogen) 46 mg/dL (9.8-20.1); Calc. Creatinine Clearance 14 mL/min (70-130); Calcium 8.5 mg/dL (7.8-10.44); Carbon Dioxide 24 mmol/L (22-29); Chloride 94 mmol/L (98-107); Estimated GFR 7; Glucose 107 mg/dL (70-105); Potassium 4.4 mmol/L (3.5-5.1); Sodium 130 mmol/L (136-145)
[2022-08-28] MEDS: Gabapentin 300 MG CAP PO SCH ×3 (07:58→20:46)
[2022-08-28] MEDS: Heparin 5,000 UNITS/ML VIAL SC SCH ×3 (07:59→20:47)
[2022-08-28] MEDS: Sevelamer Carbonate 800 MG TAB PO SCH ×3 (07:59→16:02)
[2022-08-28] MEDS: Carvedilol 25 MG TAB PO SCH ×2 (07:59→16:02)
[2022-08-28] MEDS: Aspirin 81 mg Enteric Coated Tablet PO SCH (07:59)
[2022-08-28] MEDS: Lisinopril 20 MG TAB PO SCH ×2 (07:59→20:46)
[2022-08-28] MEDS: Insulin Glargine 30 UNITS/0.3 ML VIAL SC SCH (08:00)
[2022-08-28] MEDS: Cefepime 0.5 GM in Sodium Chloride 0.9% 100 ML IVPB SCH (16:02)
[2022-08-28] MEDS: Atorvastatin Calcium 40 MG TAB PO SCH (20:46)
[2022-08-29] MEDS: Levothyroxine Sodium 50 MCG TAB PO SCH (05:14)
[2022-08-29] MEDS ORDERED: Lidocaine 1% (PF) 30 ML VIAL ONE (06:17)
[2022-08-29] MEDS ORDERED: Heparin 10,000 UNITS/ 10 ML VIAL ONE ×2 (06:17→09:07)
[2022-08-29] MEDS ORDERED: FENTANYL 50 MCG/ML 1 ML VIAL ONE (06:50)
[2022-08-29] MEDS ORDERED: Midazolam HCl 2 mg/2 ml Vial ONE (06:50)
[2022-08-29] MEDS: Sevelamer Carbonate 800 MG TAB PO SCH ×3 (07:32→17:24)
[2022-08-29] MEDS ORDERED: Protamine Sulfate 50 MG/5 ML VIAL ONE (07:50)
[2022-08-29] MEDS: Heparin 5,000 UNITS/ML VIAL SC SCH ×3 (09:00→22:11)
[2022-08-29] MEDS: Acetaminophen 325 MG TAB PO PRN (09:55)
[2022-08-29] MEDS: Carvedilol 25 MG TAB PO SCH ×2 (09:56→17:24)
[2022-08-29] MEDS: Gabapentin 300 MG CAP PO SCH ×3 (09:56→22:11)
[2022-08-29] MEDS: Aspirin 81 mg Enteric Coated Tablet PO SCH (09:56)
[2022-08-29] MEDS: Lisinopril 20 MG TAB PO SCH ×2 (09:56→22:12)
[2022-08-29] MEDS: Insulin Glargine 30 UNITS/0.3 ML VIAL SC SCH (09:57)
[2022-08-29 10:17] LABS: #Eosinphils 0.6 thou/uL (0.0-0.7); #Lymphocytes 2.1 thou/uL (1.20-3.40); #Monocytes 0.8 thou/uL (0.11-0.59); #Neutrophils 5.7 thou/uL (1.40-6.50); %Eosinophils 6.1 % (0.0-10.0); %Monocytes 8.4 % (0.0-10.0); %Neutrophils 62.5 % (42.0-75.0); Hemoglobin 9.8 g/dL (12.0-16.0); Mean Corpuscular HGB CONC 32.1 g/dL (32.0-36.0); Mean Corpuscular Hemoglobin 31.2 pg (27.0-31.0); Mean Corpuscular Volume 97.2 fl (78.0-98.0); Mean Platelet Volume 8.8 fL (7.4-10.4); Platelet Count 298 10x3/uL (130-400); RBC Distribution Width 12.4 % (11.5-14.5); Red Blood Cell (RBC) Count 3.15 mill/uL (4.20-5.40); White Blood Cell (WBC) Count 9.1 10x3/uL (4.8-10.8)
[2022-08-29 10:42] LABS: Vancomycin, Random 16.2 ug/mL (See Comment)
[2022-08-29 10:50] LABS: Anion Gap 15 mmol/L (10-20); BUN (Urea Nitrogen) 59 mg/dL (9.8-20.1); Calc. Creatinine Clearance 12 mL/min (70-130); Calcium 8.3 mg/dL (7.8-10.44); Carbon Dioxide 24 mmol/L (22-29); Chloride 95 mmol/L (98-107); Estimated GFR 6; Glucose 87 mg/dL (70-105); Potassium 4.9 mmol/L (3.5-5.1); Sodium 129 mmol/L (136-145)
[2022-08-29] MEDS ORDERED: Iopamidol 370 76% 100 ML VIAL ONE (11:24)
[2022-08-29] MEDS ORDERED: Vancomycin HCl 750 MG in Sodium Chloride 0.9% 250 ML 250 ML IVPB SCH (17:00)
[2022-08-29] MEDS: Cefepime 0.5 GM in Sodium Chloride 0.9% 100 ML IVPB SCH (22:10)
[2022-08-29] MEDS: Atorvastatin Calcium 40 MG TAB PO SCH (22:11)
[2022-08-30] MEDS: Levothyroxine Sodium 50 MCG TAB PO SCH (05:19)
[2022-08-30] MEDS: Heparin 5,000 UNITS/ML VIAL SC SCH ×3 (08:15→20:04)
[2022-08-30] MEDS: Sevelamer Carbonate 800 MG TAB PO SCH ×3 (08:17→18:09)
[2022-08-30] MEDS: Gabapentin 300 MG CAP PO SCH ×3 (08:17→20:04)
[2022-08-30] MEDS: Lisinopril 20 MG TAB PO SCH ×2 (08:18→20:05)
[2022-08-30] MEDS: Carvedilol 25 MG TAB PO SCH ×2 (08:18→18:09)
[2022-08-30] MEDS: Aspirin 81 mg Enteric Coated Tablet PO SCH (08:18)
[2022-08-30] MEDS: Insulin Glargine 30 UNITS/0.3 ML VIAL SC SCH (12:25)
[2022-08-30] MEDS ORDERED: Cefepime 0.5 GM, Admixture Fee 1 EACH in Sodium Chloride 0.9% 100 ML IVPB SCH (17:00)
[2022-08-30] MEDS: Atorvastatin Calcium 40 MG TAB PO SCH (20:05)
[2022-08-31] MEDS: Levothyroxine Sodium 50 MCG TAB PO SCH (06:09)
[2022-08-31 07:37] LABS: Vancomycin, Random 20.3 ug/mL (See Comment)
[2022-08-31] MEDS: Carvedilol 25 MG TAB PO SCH (08:39)
[2022-08-31] MEDS: Gabapentin 300 MG CAP PO SCH ×2 (08:39→15:19)
[2022-08-31] MEDS: Aspirin 81 mg Enteric Coated Tablet PO SCH (08:39)
[2022-08-31] MEDS: Sevelamer Carbonate 800 MG TAB PO SCH ×2 (08:39→12:00)
[2022-08-31] MEDS: Heparin 5,000 UNITS/ML VIAL SC SCH ×2 (08:40→15:18)
[2022-08-31] MEDS: Insulin Glargine 30 UNITS/0.3 ML VIAL SC SCH (08:40)
[2022-08-31] MEDS: Lisinopril 20 MG TAB PO SCH (08:40)
[2022-08-31 09:00] VITALS: BP 137/66; TEMP 97.9
[2022-08-31] MEDS ORDERED: Heparin 10,000 UNITS/ 10 ML VIAL ONE (09:01)
[2022-08-31] MEDS ORDERED: Vancomycin 250 MG in Sodium Chloride 0.9% 100 ML IVPB SCH (17:00)
== END 2022-08-31 18:15 | disposition home health service (06) | DRG 252 ==
LOC: INTOOBSV 00:54 → MSONC 00:54 → OBSVTOIN 13:59 → T4-A 08-28 11:39
PROVIDERS: ADMIT Student in an Organized Health Care Education/Training Program; ATTEND Internal Medicine
PROC: 047L3ZZ Dilation of Left Femoral Artery, Percutaneous Approach (ICD-10-PCS; principal; 2022-08-26)
PROC: 0Y6U0Z1 Detachment at Left 3rd Toe, High, Open Approach (ICD-10-PCS; 2022-08-26)
PROC: 047Q3ZZ Dilation of Left Anterior Tibial Artery, Percutaneous Approach (ICD-10-PCS; 2022-08-26)
PROC: 4A023N7 Measurement of Cardiac Sampling and Pressure, Left Heart, Percutaneous Approach (ICD-10-PCS; 2022-08-26)
PROC: B2151ZZ Fluoroscopy of Left Heart using Low Osmolar Contrast (ICD-10-PCS; 2022-08-26)
PROC: B2111ZZ Fluoroscopy of Multiple Coronary Arteries using Low Osmolar Contrast (ICD-10-PCS; 2022-08-26)
PROC: 5A1D70Z Performance of Urinary Filtration, Intermittent, Less than 6 Hours Per Day (ICD-10-PCS; 2022-08-27)
DX: E11.52 Type 2 diabetes mellitus with diabetic peripheral angiopathy with gangrene (principal); N18.6 End stage renal disease; I13.2 Hypertensive heart and chronic kidney disease with heart failure and with stage 5 chronic kidney disease, or end stage renal disease; M86.172 Other acute osteomyelitis, left ankle and foot; I50.22 Chronic systolic (congestive) heart failure; E11.69 Type 2 diabetes mellitus with other specified complication; E11.628 Type 2 diabetes mellitus with other skin complications; E11.22 Type 2 diabetes mellitus with diabetic chronic kidney disease; D63.1 Anemia in chronic kidney disease; E03.9 Hypothyroidism, unspecified; B95.62 Methicillin resistant Staphylococcus aureus infection as the cause of diseases classified elsewhere; Z99.2 Dependence on renal dialysis; Z87.891 Personal history of nicotine dependence; Z79.4 Long term (current) use of insulin; Z79.890 Hormone replacement therapy; Z79.82 Long term (current) use of aspirin; Z79.899 Other long term (current) drug therapy
CPT/HCPCS: 36415; 36416; 37224; 37228; 75630; 75635; 75710; 75736; 75774; 80048; 80202; 85025; 86704; 87070; 87077; 87186; 87205; 88305; 88311; 96372; 97139; C1725; C1760; C1769; C1887; C1894; G0378; J0692; J1100; J1644; J1815; J2001; J2250; J2405; J2704; J2720; J3010; J3370; J3490; J7050; Q9967; U0003; U0005